=== PATIENT | female | born 2000 | race Caucasian/White ===

== ENCOUNTER → 2019-10-16 15:16 | Outpatient (BNVA) | payer MEDICAID, SELFPAY | PROVIDERS: Family Provider Family Medicine; PCP Family Medicine; Visit Provider Nurse Practitioner Family | DX: N39.0 Urinary tract infection, site not specified (principal) | CPT/HCPCS: 80053; 81000 ==

== ENCOUNTER → 2019-10-27 15:15 | Outpatient (BNVA) | payer MEDICAID, SELFPAY | PROVIDERS: Family Provider Family Medicine; PCP Family Medicine; Visit Provider Family Medicine | DX: Z72.51 High risk heterosexual behavior (principal); N39.0 Urinary tract infection, site not specified; R30.0 Dysuria; Z20.2 Contact with and (suspected) exposure to infections with a predominantly sexual mode of transmission | CPT/HCPCS: 80053; 81000; 81025; 87491; 87591; 87661 ==

== ENCOUNTER 2019-11-27 09:39 | Outpatient (CLI) | payer MEDICAID, SELFPAY ==
--- NOTE | 2019-11-27 09:45 | US_ITS ---
WS: [id number] TRANSABDOMINAL PELVIC AND TRANSVAGINAL PELVIC ULTRASOUND HISTORY: Absence of menses and pelvic pain. COMPARISON: 01/12/2018 Uterus: 6.2 cm x 4.0 cm x 2.6 cm. Normal size anteverted uterus. No fibroid or mass. Endometrium: 0.8 cm. Normal homogeneity within the endometrium. Right ovary: 3.7 cm x 3.6 cm x 1.7 cm. RIGHT ovary is normal size with small follicles. Normal vascul arity. Left ovary: 2.2 cm x 2.1 cm x 1.3 cm. LEFT ovary is normal size. Adjacent to the LEFT ovary is comple x echogenic material which may be hemorrhage. There is complex free fluid in the LEFT adnexa surround ing the ovary and extending into the cul-de-sac. Small amount of complex free fluid in the pelvis is more than physiologic. Notified Panda Fleming MD at 11/27/2019 10:56 AM. US/US pelvic with transvaginal IMPRESSION: 1. Small amount of complex free fluid in the pelvis and to the LEFT adnexa is more than physiologic. 2. Increased echogenic material in the LEFT adnexa adjacent to the ovary may b e clotted blood from a prior hemorrhage. 3. No intrauterine gestation. Recommend evaluation for possible positive pregn franchesca test. Ectopic should be considered as a possible etiology. Other angel hemorrhagic LEFT ovarian cyst may be the etiology for the hemorrhagic mate rial.
== END 2019-11-27 09:40 | disposition home or self-care (01) ==
LOC: RAD 09:41
PROVIDERS: Family Provider Family Medicine; PCP Family Medicine; Visit Provider Family Medicine
DX: N91.2 Amenorrhea, unspecified (principal); R10.2 Pelvic and perineal pain; N83.202 Unspecified ovarian cyst, left side
CPT/HCPCS: 76830; 76856

== ENCOUNTER 2020-04-11 13:22 | Inpatient (IN) | payer MEDICAID, SELFPAY ==
[2020-04-11] VITALS (19 sets, daily range): BP systolic 0–139; BP diastolic 0–78; PULSE 77–97; RESP 15–18; TEMP 36.6–36.8; BMI 25.4
[2020-04-11 09:28] LABS: Basophils % 0.3 %; Eosinophils # 0.1 10^3/uL (0.0-0.8); Eosinophils % 0.5 %; Hematocrit 39.2 % (37.0-47.0); Lymphocytes # 1.8 10^3/uL (0.8-4.8); Lymphocytes % 11.8 %; Mean Corpuscular HGB Conc 33.2 g/dL (30.0-36.0); Mean Corpuscular Hemoglobin 33.3 pg (28.0-34.0); Mean Corpuscular Volume 100.5 fL (81-99); Mean Platelet Volume 10.7 fL (7.4-10.4); Monocytes # 1.2 10^3/uL (0.2-0.9); Monocytes % 7.7 %; Neutrophils # 12.23 10^3/uL (1.8-7.7); Neutrophils % 79.2 %; Nucleated Red Blood Cells % 0 %; Platelet Count 266 10^3/cmm (130-400); Red Cell Distribution Width 13.9 % (12.1-15.1); White Blood Count 15.4 10^3/uL (4.0-10.0)
[2020-04-11] MEDS: HYDROcodone-acetaminophen 5-325 mg Tablet PO ×2 (09:35→17:19)
[2020-04-11 09:40] LABS: Bilirubin Urine Neg (Negative); Blood Urine 2+ (Negative); Glucose Urine UA Norm (Normal); Ketones Urine Negative (Negative); Leukocyte Esterase Urine Negative (Negative); Nitrate Urine Negative (Negative); Protein Urine Neg (Negative); Urine Appearance SL Hazy (CLEAR); Urine Color Yellow (Yellow); Urobilinogen Urine Norm (Negative); pH Urine 7 (5-7)
[2020-04-11 09:42] LABS: Bacteria Urine TRACE /hpf; Squamous Epithelial Cell Urine 0-4 /hpf (0-5); WBC Urine 0-4 /hpf (0-5)
[2020-04-11 09:43] LABS: Add Urine Culture? No; Amorphous Sediment Urine TRACE /hpf; Mucus Urine 1+ /hpf
[2020-04-11] MEDS: sodium chloride 0.9% 1,000 ML 999 ML IV (10:41)
--- NOTE | 2020-04-11 10:47 | US_ITS ---
WS: [id number] ULTRASOUND OB FOCUSED HISTORY: abdominal pain, evaluate placenta. COMPARISON: 03/21/2020 Single intrauterine gestation identified. Cervix is closed at 3.0 cm. Fetus in cephalic presentation. heart rate at 147 BPM. Placenta is anterior grade 1. No abruption or previa. Normal amniotic fluid. US/US OB limited [id number] IMPRESSION: 1. Normal anterior placenta. No abruption or previa. 2. Normal cardiac activity.
--- NOTE | 2020-04-11 10:47 | US_ITS ---
WS: [id number] RENAL ULTRASOUND HISTORY: back/abdominal pain COMPARISON: None available. TECHNIQUE: 2-D and color Doppler imaging of the kidney submitted. Right kidney: 12.6 cm x 4.7 cm x 5.2 cm. Mild to moderate dilatation of the RIGHT renal pelvis. Mild dilatation of the calyces. No mass or per irenal fluid. Left kidney: 11.4 cm x 4.3 cm x 5.0 cm. Very minimal splitting of the LEFT renal pelvis. Aorta: Normal. Urinary Bladder: Normal distention. US/US renal BI* [id number] IMPRESSION: 1. Mild to moderate RIGHT and minimal LEFT hydronephrosis. Probably physiologi c and related to the gravid uterus. 2. Normally distended urinary bladder.
[2020-04-11] MEDS: morphine 4 mg/mL SDV 1 mL IVP ×2 (11:06→19:07)
--- NOTE | 2020-04-11 14:37 | PC.NURSE ---
Pt ambulated to room 208, tolerated well
[2020-04-11] MEDS: NIFEdipine 10 mg Capsule 20 MG PO (17:19)
[2020-04-11] MEDS: sodium chlor 0.45% +KCl 20 mEq 20 MEQ/1,000 ML BAG 150 MEQ IV (19:08)
--- NOTE | 2020-04-11 20:28 | PC.NURSE ---
Rounding Patient resting with eyes closed. RR even, non labored. AR RN
[2020-04-11] MEDS: ondansetron 2 mg/ML SDV 2 mL 4 MG IVP (22:11)
[2020-04-11] MEDS: NIFEdipine ER (24 hr) 30 mg Tablet 60 MG PO (23:08)
[2020-04-12] VITALS (9 sets, daily range): BP systolic 97–140; BP diastolic 50–73; PULSE 80–102; RESP 16–20; TEMP 36.8
[2020-04-12] MEDS: HYDROcodone-acetaminophen 5-325 mg Tablet PO ×4 (00:56→22:36)
[2020-04-12] MEDS: sodium chlor 0.45% +KCl 20 mEq 20 MEQ/1,000 ML BAG 150 MEQ IV ×2 (01:46→08:43)
[2020-04-12] MEDS: morphine 4 mg/mL SDV 1 mL IVP ×3 (06:00→21:23)
--- NOTE | 2020-04-12 06:53 | P.HP_ITS ---
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 On the day of admission, she began having generalized abdominal pain. She also had some vomiting associated with it. She did not have any vaginal bleeding. She continued to feel the baby move. She was brought via ambulance to the hospital. She is evaluated. Initially she was found to have contractions and was treated accordingly with Procardia. Her contractions resolved. She continued to complain of some pain. She is also given betamethasone, and her pain was treated with both morphine and hydrocodone. She continued to have some pain during the night. Present Details : 1 Para: 0 Review of Systems General: Reports: 10 or more systems reviewed and unremarkable except in HPI and below Const: Denies: fever(s) Card: Denies: chest pain or irregular heart rhythm Resp: Denies: dyspnea GI: Reports: abdominal pain, nausea and vomiting; Denies: diarrhea or constipation : Reports: flank pain; Denies: difficulty voiding, dysuria, urinary frequency or urinary urgency Skin/Breast: Denies: rash Medications/Allergies Home Medications Medication Instructions Recorded Confirmed Last Taken Type citalopram 20 mg tablet 20 mg PO DAILY 10/16/19 04/20/20 Unknown History clotrimazole 1 % topical cream 1 applic TOPICAL BID 14 Days #28 gm 10/21/19 04/20/20 Unknown Rx ondansetron 4 mg disintegrating 4 mg PO Q8H PRN #14 tab 10/28/19 04/20/20 Unknown Rx tablet hydrocodone-acetaminophen 1 - 2 tab PO Q6H PRN #30 tab 04/14/20 04/20/20 Unknown Rx phenazopyridine 200 mg PO TID PRN #9 tab 04/14/20 04/20/20 Unknown Rx Allergies Allergy/AdvReac Type Severity Reaction Status Date / Time Sulfa (Sulfonamide Allergy Unknown UNKNOWN Verified 10/27/19 14:46 Antibiotics) sulfamethoxazole Allergy ALGY-Hives Verified 04/11/20 09:42 [From Bactrim] trimethoprim [From Bactrim] Allergy ALGY-Hives Verified 04/11/20 09:42 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 [facility]: Medical History Recurrent cystitis Surgical History History of tonsillectomy and adenoidectomy Family History Other Diabetes Hypertension Social History Smoking and tobacco status: never smoked Alcohol intake: never Adopted: No Caregiver/support person: No Marital status: Single Personal Safety: Do you feel safe at home: Yes Victim of physical abuse: No Victim of emotional abuse: No Victim of sexual abuse: No Would you like help information on resources?: No Vitals/I&O/Wt Last Vital Signs Temp 98.3 F 04/11/20 23:24 Pulse 84 04/12/20 06:16 Resp 16 04/12/20 06:00 BP 100/59 04/12/20 06:16 04/11/20 04/11/20 04/12/20 14:59 22:59 06:59 Intake Total 1000 / 1000 1994 Balance 1000 / 1000 1994 Weight last 48 hrs Weight 135 lb Physical Exam Const: COMMON NORMALS: patient oriented x3 and alert HENMT: COMMON NORMALS: moist oral mucous membranes HEAD & SCALP: normal to inspection Chest: COMMONS NORMALS: normal inspection of the chest Resp: COMMON NORMALS: clear to auscultation bilaterally AUSCULTATION: clear to auscultation bilaterally Cardio: COMMON NORMALS: regular rate and regular rhythm RATE: regular rate RHYTHM: regular rhythm GI: INSPECTION: Yes other (Gravid. No point tenderness. No rebound tenderness. Mild generalized ten) : SPECULUM EXAM - CERVIX: Yes Cervical os closed (The cervix is thick and high and hard) Extremity: COMMON NORMALS: normal to inspection GENERAL: Yes edema (Trace) Neuro: COMMON NORMALS: patient oriented x3, moves all extremities and no sensory deficits noted SENSORIUM/ORIENTATION: Yes alert Psych: COMMON NORMALS: mental status grossly normal Skin: COMMON NORMALS: no rashes or lesions noted GENERAL SKIN EXAM: no rashes or lesions noted Data : 04/12/20 09:21 04/12/20 09:21 A&P Assessment and plan (1) 23 weeks gestation of : Status: Resolved (2) uterine contractions in second trimester, antepartum: Status: Resolved (3) Abdominal pain affecting : Status: Acute (4) Flank pain: Status: Acute (5) Hydronephrosis: Status: Acute Attestations Medical Necessity Statement*: The patient gestational age of 23 weeks together with her severe pain and contractions. Due to hydronephrosis and the resulting pain, Dr. Caldera evaluated the patient and determined that she needed a stent placed. Her pain is improved dramatically Coding Level of Care Code Acute Weight Control Engineer for g Fwd Exam Comprehensive Diagnoses 23 weeks gestation of Z3A.23 uterine contractions in second trimester, antepartum O47.02 Abdominal pain affecting O26.899; R10.9 Flank pain R10.9 Hydronephrosis N13.30
--- NOTE | 2020-04-12 09:02 | XR_ITS ---
WS: [id number] INTRAVENOUS PYELOGRAPHY WITHOUT TOMOGRAPHY, LIMITED HISTORY: Kidney stones COMPARISON: Renal ultrasound 04/11/2020. Procedure, risks and complications have been explained to the patient. Consent is obtained. KUB is first obtained. Additional imaging is then performed post intravenous injection of contrast ta ilored for the examination. Only 3 images in total are submitted due to gravid uterus. Contrast: Omnipaque 300; 100 mL IV. Utility Operator Yarn radiograph: Moderate fecal retention. Fetus is noted in cephalic position. No stones are identi fied. After the initial injection of contrast the 5 minute film is obtained which demonstrates no excretion from the RIGHT kidney. Very minimal nephrogram of the RIGHT kidney. There is mild dilatation of the LEFT renal pelvis and the LEFT ureter to the pelvic brim. 20 minute film performed demonstrates retained contrast in the RIGHT renal kidney with no excretion o r filling of the ureter. There is continued dilatation of the LEFT renal pelvis and LEFT ureter but t here is contrast noted in the urinary bladder. The LEFT ureter is normal caliber distal to the pelvic brim. XR/XR IVP w KUB [id number] IMPRESSION: 1. Significantly delayed excretion at 20 minutes from the RIGHT kidney with no filling of the renal pelvis or ureter. 2. Mild dilatation of the LEFT renal pelvis and LEFT ureter to the pelvic brim . Normal caliber ureter distal to the LEFT pelvic brim with excretion into the urinary bladder.
[2020-04-12 09:39] LABS: Basophils % 0.3 %; Eosinophils # 0.1 10^3/uL (0.0-0.8); Eosinophils % 0.7 %; Hematocrit 32.6 % (37.0-47.0); Hemoglobin 10.8 g/dL (11.5-15.3); Lymphocytes # 1.3 10^3/uL (0.8-4.8); Lymphocytes % 13.6 %; Mean Corpuscular HGB Conc 33.1 g/dL (30.0-36.0); Mean Corpuscular Volume 102.5 fL (81-99); Mean Platelet Volume 10.8 fL (7.4-10.4); Monocytes % 10.4 %; Neutrophils # 7.25 10^3/uL (1.8-7.7); Neutrophils % 74.7 %; Nucleated Red Blood Cells % 0 %; Platelet Count 221 10^3/cmm (130-400); Red Blood Count 3.18 10^6/uL (4.1-5.3); White Blood Count 9.7 10^3/uL (4.0-10.0)
[2020-04-12 09:54] LABS: Add Urine Culture? Yes; Bacteria Urine 2+ /hpf; Bilirubin Urine Neg (Negative); Blood Urine Neg (Negative); Glucose Urine UA Norm (Normal); Ketones Urine Negative (Negative); Leukocyte Esterase Urine 2+ (Negative); Mucus Urine TRACE /hpf; Nitrate Urine Negative (Negative); Protein Urine Neg (Negative); RBC Urine 0-4 /hpf (0-2); Specific Gravity, Urine 1.005 (1.005-1.030); Urine Appearance Cloudy (CLEAR); Urine Color Straw (Yellow); Urobilinogen Urine Norm (Negative); WBC Urine 15-25 /hpf (0-5)
[2020-04-12 09:55] LABS: Alanine Aminotransferase 11 U/L (0-33); Alkaline Phosphatase 65 IU/L (35-105); Anion Gap 12.4 (5-19); Aspartate Amino Transferase 17 U/L (0-32); Blood Urea Nitrogen 5 mg/dL (6-20); Calcium 7.7 mg/dL (8.5-10.5); Carbon Dioxide 21 mmol/L (22-29); Chloride 102 mmol/L (98-107); Globulin 2.2 g/dL (1.3-4.6); Glomerular Filtration Rate 105.6 mL/min (90-130); Glucose 79 mg/dL (65-115); Osmolality Calculated 266 mOsm/kg (285-295); Potassium 5.4 mmol/L (3.5-5.1); Sodium 130 mmol/L (136-145); Total Bilirubin 0.3 mg/dL (0.15-1.2); Total Protein 5.2 g/dL (6.6-8.7)
[2020-04-12] MEDS: sodium chloride 0.9% 1,000 ML 999 ML IV (10:10)
[2020-04-12] MEDS: iohexol 300 mg/mL 50 mL Btl IV (11:25)
[2020-04-12] MEDS: sodium chloride 0.9% 1,000 ML 150 ML IV ×2 (14:03→22:54)
--- NOTE | 2020-04-12 15:46 | XRR_ITS ---
PROCEDURE INFORMATION: Exam: XR Abdomen, 1 View Exam date and time: 04/12/2020 4:32 PM Age: 19 years old Clinical indication: Abdominal pain; Generalized; Additional info: Follow up TECHNIQUE: Imaging protocol: XR of the abdomen. Views: Frontal supine view of the abdomen. 1 View. COMPARISON: CR XR IVP w KUB [id number] 04/12/2020 10:54 AM FINDINGS: Gastrointestinal tract: Gaseous distention and moderate amount of stool in the proximal to mid colon. No intestinal obstruction. An electronic device projects over the right lower abdomen, which is likely external. Organs: A small amount of residual contrast is again seen in the urinary bladder. Bones/joints: Unremarkable. XR/XR KUB portable [id number] IMPRESSION: No significant change.
--- NOTE | 2020-04-12 17:13 | XRR_ITS ---
PROCEDURE INFORMATION: Exam: XR Abdomen, 1 View Exam date and time: 04/12/2020 5:46 PM Age: 19 years old Clinical indication: Abdominal pain; Generalized; Additional info: Delayed image for limited ivp. TECHNIQUE: Imaging protocol: XR of the abdomen. Views: Frontal supine view of the abdomen. 1 View. COMPARISON: CR XR KUB portable [id number] 04/12/2020 4:25 PM FINDINGS: The urinary bladder is slightly more distended with contrast. The right kidney is slightly more hyperdense compared to the prior study. Contrast material in the right renal collecting system demonstrates mild hydronephrosis. Contrast is observed in the mildly dilated right ureter XR/XR KUB [id number] IMPRESSION: Delayed excretion of contrast from the right kidney. Mild right hydronephrosis and hydroureter are noted.
--- NOTE | 2020-04-12 20:00 | PM.CONSULT ---
Providers/Reason For Consult Consulting Physican/Specialty*: Urology/Mendez Reason for Consult*: Right hydronephrosis with abdominal pain Attending Physician: Donald Sanchez MD Primary Care Provider: Augustina Lepe MD History of Present Illness History of Present Illness Keith Ellison is a 19 year old female who I seen several years ago for recurrent urinary tract infections with a history dating back to infancy and initially presenting with more acute cystitis type episodes but over time developing symptoms more suspicious for chronic cystitis. She is placed on a prolonged course of Macrobid in January 2018 and had a follow-up appointment following month but failed to keep her appointment. Family reported that she had been evaluated by urologist in [facility] as a child. The details of that work-up were unavailable at that time. This hospitalization was initiated because of severe abdominal pain at 23 weeks intrauterine . Ultrasound showed no evidence of left hydronephrosis but did show RIGHT hydronephrosis. The pain was severe and due to patient's somewhat diminished cognitive function she had not been handling it well. Could not really relate right or left side for the source of pain. There was no evidence of active infection. Ultimately because of the poor control, right hydronephrosis, and characteristics of abrupt onset suspicious for stone it was recommended that she undergo an abbreviated IVP. No obvious stone was seen on the muffler installer film. There was significant delay of excretion and at the approximately 5 to 6-hour yue there was a column of dye on the right side down to the area near the right UVJ below the point where physiologic obstruction of would be expected. No clear stone could be seen. I was consulted for further evaluation and treatment. I have reviewed the films in detail. It is my impression that this likely represents a small stone in the right distal ureter. Recommendations: 1. IV fluids, pain medications as needed, strain all voids. 2. Reassess tomorrow with option for cystoscopy stent placement, possible URETEROSCOPY with stone extraction (to allow shorter stent duration) assuming the reasonableness of this based on status. 3. I tried to contact the patient's mother Dotty Epstein but could not the phone to answer. Review of Systems Const: Denies: fever(s) or chills Eyes: Denies: change in vision or blurry vision Card: Denies: chest pain or palpitations Resp: Denies: dyspnea or productive cough GI: Reports: abdominal pain, nausea and vomiting; Denies: change in bowel habits : Reports: flank pain and other (Pelvic pressure. Some urgency.); Denies: hematuria Musc: Denies: joint redness or joint warmth Skin/Breast: Denies: rash Psych: Reports: other (Cognitive dysfunction) Dale/Lymph: Denies: easy bruising or easy bleeding All/Imm: Denies: urticaria Meds/Allergies Home Medications and Allergies Home Medications Medication Instructions Recorded Confirmed Last Taken Type citalopram 20 mg tablet 20 mg PO DAILY 10/16/19 10/27/19 Unknown History clotrimazole 1 % topical cream 1 applic TOPICAL BID 14 Days #28 gm 10/21/19 10/27/19 Unknown Rx ondansetron 4 mg disintegrating 4 mg PO Q8H PRN #14 tab 10/28/19 10/28/19 Unknown Rx tablet Allergies Allergy/AdvReac Type Severity Reaction Status Date / Time Sulfa (Sulfonamide Allergy Unknown UNKNOWN Verified 10/27/19 14:46 Antibiotics) sulfamethoxazole Allergy ALGY-Hives Verified 04/11/20 09:42 [From Bactrim] trimethoprim [From Bactrim] Allergy ALGY-Hives Verified 04/11/20 09:42 Current Medications Current Medications Generic Name Dose Route Start Last Admin Trade Name Freq PRN Reason Stop Dose Admin Hydrocodone Bitart/Acetaminophen 1 - 2 tab 04/11/20 13:23 04/12/20 15:18 Hydrocodone-Acetaminophen 5-325 Mg Tablet PO 2 tab Q6H PRN Administration MODERATE PAIN Sodium Chloride 1,000 mls @ 150 mls/hr 04/12/20 13:30 04/12/20 14:03 Sodium Chloride 0.9% IV 150 mls/hr .Q6H40M THU Administration Morphine Sulfate 4 mg 04/11/20 13:25 04/12/20 12:04 Morphine 4 Mg/Ml Sdv 1 Ml IVP 4 mg Q4H PRN Administration BREAKTHROUGH PAIN Ondansetron HCl 4 mg 04/11/20 11:16 04/11/20 22:11 Ondansetron 2 Mg/Ml Sdv 2 Ml IVP 4 mg Q4H PRN Administration NAUSEA AND VOMITING PFSH Acute PFSH: Medical History (Updated 04/12/20 @ 20:08 by Roc Mendez MD) Recurrent cystitis Surgical History (Updated 04/12/20 @ 20:09 by Roc Mendez MD) History of tonsillectomy and adenoidectomy Family History Other Diabetes Hypertension Social History Smoking and tobacco status: never smoked Alcohol intake: never Adopted: No Caregiver/support person: No Marital status: Single Female Reproductive History: : 1 Vitals/I&O/Wt Last Vital Signs Temp 98.2 F 04/12/20 10:00 Pulse 102 H 04/12/20 15:23 Resp 20 H 04/12/20 12:04 BP 140/73 04/12/20 15:23 04/12/20 04/12/20 04/12/20 06:59 14:59 22:59 Intake Total 1994 2232.5 / 2232.5 Output Total 1800 / 1800 600 / 2400 Balance 1994 432.5 / 432.5 -600 / -167.5 Weight last 48 hrs Weight 135 lb Physical Exam Const: COMMON NORMALS: no acute distress, alert and well nourished GENERAL APPEARANCE: well kempt and well developed ORIENTATION/CONSCIOUSNESS: not confused HENMT: COMMON NORMALS: normocephalic and atraumatic HEAD & SCALP: normocephalic and atraumatic Neck/C-Spine: COMMON NORMALS: full ROM Resp: COMMON NORMALS: normal respiratory effort EFFORT & INSPECTION: No labored and No Actively coughing Cardio: COMMON NORMALS: regular rate RATE: regular rate Neuro: SENSORIUM/ORIENTATION: Yes alert Psych: COMMON NORMALS: mental status grossly normal APPEARANCE: Yes grossly normal and Yes well kempt ATTITUDE: Yes calm and Yes engaged Skin: COMMON NORMALS: no rashes or lesions noted and no jaundice GENERAL SKIN EXAM: no rashes or lesions noted A&P Assessment and plan (1) Ureteral obstruction, right: Based on IVP results I expect this is probably a right distal ureteral stone. Cannot clearly identified on the muffler installer film. Hopefully it small enough that will pass. Recommend initial continued conservative management with option for surgical intervention either with stent or ureteroscopy for persistent symptoms. Status: Acute (2) Hydronephrosis of right kidney: Pronounced right side without left. Status: Acute (3) Flank pain: Suspicious for renal colic Status: Acute (4) Recurrent cystitis: History of recurrent UTIs but no evidence of that currently. Status: Inactive Consult Attestations Medical Necessity Statement: See attending Time Spent in Patient Care: Greater than 35 minutes (>than 50% of time spent in counselling and/or direct pt care on unit). Coding Level of Care Code Acute Supply Chain Procurement Manager for [facility] Fwd Exam Detailed Diagnoses Ureteral obstruction, right N13.5 Hydronephrosis of right kidney N13.30 Flank pain R10.9 Recurrent cystitis N30.90
--- NOTE | 2020-04-12 20:15 | PC.NURSE ---
Pain assessment. Patient states she is having some pain, this nurse asked patient if she needed pain medication. She stated she does not want any thing at the moment, and will notify this nurse when she needs pain medication. BRITTNEY FABIAN
--- NOTE | 2020-04-12 20:34 | PC.NURSE ---
Patients mother, Lupe, updated on patient status, Dr. Mendez's consult report. No further questions. States she will by tomorrow to see daughter. BRITTNEY FABIAN
[2020-04-12] MEDS: ondansetron 2 mg/ML SDV 2 mL 4 MG IVP (23:37)
[2020-04-13] VITALS (47 sets, daily range): BP systolic 0–123; BP diastolic 0–83; PULSE 78–122; RESP 16–25; TEMP 36.3–37; O2SAT 80–100
--- NOTE | 2020-04-13 | SCC_ITS ---
Procedure Done: 1. Cystoscopy, right ureteroscopy 2. Right retrograde ureteropyelogram 3. Right ureteral stent placement 8.9 seconds of fluoroscopic guidance, for a cumulative dose of 1.06 mGy, was provided to Dr. Mendez by the radiology department. C-arm images of the abdomen were saved for the patient's permanent record. [facility]
[2020-04-13] MEDS: sodium chloride 0.9% 1,000 ML 150 ML IV ×3 (05:56→19:38)
--- NOTE | 2020-04-13 07:16 | SC_ITS ---
WS: [id number] C-ARM RADIOGRAPHS ABDOMEN; 3 IMAGES HISTORY: RIGHT ureteral obstruction. COMPARISON: 04/12/2020. Intraoperative imaging during retrograde evaluation of the RIGHT ureter. Double pigtail RIGHT uretera l stent is placed. SC/C-arm FL for Urology IMPRESSION: Intraoperative imaging during RIGHT ureteral stent placement.
--- NOTE | 2020-04-13 07:27 | PM.PN ---
Subjective Subjective: Interval history: A lot of pain last night. No fever or chills. No stone passage. Offered stenting with possible ureteroscopy/laser if no stone passage today and remaining asymptomatic. She elected to proceed with that. We reviewed the procedure. I tried to contact her mother and will continue to do so for explanation of the rationale. Reviewed with nursing staff. Vitals/I&O/Wt Last Vital Signs Temp 98.3 F 04/13/20 01:15 Pulse 107 H 04/13/20 05:20 Resp 18 04/13/20 01:16 BP 106/71 04/13/20 05:20 04/12/20 04/13/20 04/13/20 22:59 06:59 14:59 Intake Total 1000 / 3232.5 615 / 3847.5 Output Total 1600 / 3400 650 / 4050 Balance -600 / -167.5 -35 / -202.5 Weight last 48 hrs Weight 135 lb Physical Exam Const: COMMON NORMALS: alert and well nourished GENERAL APPEARANCE: well kempt and well developed ORIENTATION/CONSCIOUSNESS: not confused HENMT: COMMON NORMALS: normocephalic and atraumatic HEAD & SCALP: normocephalic and atraumatic Resp: COMMON NORMALS: normal respiratory effort EFFORT & INSPECTION: No labored and No Actively coughing Extremity: COMMON NORMALS: no clubbing, cyanosis or edema Neuro: COMMON NORMALS: no focal motor deficits SENSORIUM/ORIENTATION: Yes alert Psych: APPEARANCE: Yes grossly normal and Yes well kempt ATTITUDE: Yes calm and Yes engaged Skin: COMMON NORMALS: no rashes or lesions noted and no jaundice GENERAL SKIN EXAM: no rashes or lesions noted Data : 04/12/20 09:21 04/12/20 09:21 Attestations Medical Necessity Statement*: Uncontrolled renal colicky pain believed to be secondary to a distal ureteral stone complicated by (23 weeks estimated gestational age). Patient has not responded well to conservative management and is not a candidate for further discharge at this point unless the stone passes or intervention occurs. She elected to proceed with cystoscopy and stent placement and if possible ureteroscopy. That decision will be made intraoperatively based on the patient's clinical status at the time. Coding Level of Care Code Acute Segmental Wall Installer for Anabel Martin
--- NOTE | 2020-04-13 07:46 | PM.OBGYPN ---
MANAGER COSMETIC Subjective Subjective: Interval history: The patient continues to complain of pain, but appears to be doing better overall. She still does not have an appetite. She has not passed the stone overnight. Dr. Mendez has seen the patient, and is considering retrieving the presumed stone. Every shift heart tones are appropriate for her gestational age Labor: Station: -5 Monitor Mode: External Contraction Pattern: Irregular Vitals/I&O/Wt Last Vital Signs Temp 98.3 F 04/13/20 01:15 Pulse 107 H 04/13/20 05:20 Resp 18 04/13/20 01:16 BP 106/71 04/13/20 05:20 04/12/20 04/13/20 04/13/20 22:59 06:59 14:59 Intake Total 1000 / 3232.5 615 / 3847.5 Output Total 1600 / 3400 650 / 4050 Balance -600 / -167.5 -35 / -202.5 Weight last 48 hrs Weight 135 lb Physical Exam Const: GENERAL APPEARANCE: cooperative, comfortable and well developed HENMT: COMMON NORMALS: normocephalic and moist oral mucous membranes HEAD & SCALP: normocephalic Chest: COMMONS NORMALS: normal inspection of the chest Resp: COMMON NORMALS: normal respiratory effort and clear to auscultation bilaterally AUSCULTATION: clear to auscultation bilaterally Cardio: COMMON NORMALS: regular rate, regular rhythm, No gallops present (Cardio), No murmurs present (Cardio) and No rub (Cardio) RATE: regular rate RHYTHM: regular rhythm GI: COMMON NORMALS: Soft to palpation INSPECTION: Yes normal to inspection AUSCULTATION: Yes normoactive bowel sounds PALPATION: Yes Soft to palpation, No Rebound tenderness present and Yes Other GI palpation findings present (Generalized tenderness noted once again.) Extremity: COMMON NORMALS: normal to inspection Neuro: COMMON NORMALS: no focal motor deficits Skin: COMMON NORMALS: no rashes or lesions noted GENERAL SKIN EXAM: no rashes or lesions noted Data : 04/12/20 09:21 04/12/20 09:21 A&P Assessment and plan (1) Ureteral obstruction, right: Dr. Mendez is evaluating the patient is considering intervention this evening. In the meanwhile we will continue to control her pain with hydrocodone, and morphine for breakthrough pain. Status: Acute (2) Hydronephrosis of right kidney: Status: Acute (3) Flank pain: Status: Acute (4) 23 weeks gestation of : Status: Acute Attestations Medical Necessity Statement*: The patient will likely require 1 more night in the hospital assuming were able to manage her pain better. My partner will be covering for you tomorrow. Coding Level of Care Code Acute Manager Policy for Anabel Martin Diagnoses Ureteral obstruction, right N13.5 Hydronephrosis of right kidney N13.30 Flank pain R10.9 23 weeks gestation of Z3A.23
[2020-04-13] MEDS: HYDROcodone-acetaminophen 5-325 mg Tablet PO ×2 (14:11→23:57)
--- NOTE | 2020-04-13 16:45 | PC.NURSE ---
Surgery here to take pt down for procedure.
--- NOTE | 2020-04-13 17:28 | ANES.PREANE2 ---
Pre-Anesthetic Assessment Pre-Anesthetic Assessment: Height/Weight: Height 1.55 m Weight 61.235 kg Temp Pulse Resp BP 98.5 F 78 18 104/54 04/13/20 16:00 04/13/20 16:20 04/13/20 01:16 04/13/20 16:20 Proposed Procedure: Operation Date: 04/13/20 16:20 Proposed Procedures p Cystoscopy right ureteral stent, possible ureteroscopy, laser(Right) - Roc Mendez MD Was Beta Francisca taken within 24 hours: N/A Social: Social History: No alcohol and No tobacco Airway: Submandibular: WNL Cervical ROM: WNL MP: 2 Dentition: Full Pulmonary: Pulmonary: None reported CV/HEM: CV/HEM: None reported : Comments: Hydronephrosis, stones Hepatic: Hepatic: None reported GI: GI: None reported Metabolic: Metabolic: None reported Musc/skel: Musc/skel: None reported Neuropsych: Neuropsych: Depression Anesthetic Plan: ASA status: 2 Anesthesia: General Risk of > 500 ml blood loss (7ml/kg in children): No Other Pertinent Information: Meds/Allergies Current Medications: Current Medications Generic Name Dose Route Start Last Admin Trade Name Freq PRN Reason Stop Dose Admin Hydrocodone Bitart /Acetaminophen 1 - 2 tab 04/11/20 13:23 04/13/20 14:11 Hydrocodone-Acet aminophen 5-325 Mg Tablet PO 2 tab Q6H PRN Administration MODERATE PAIN Sodium Chloride 1,000 mls @ 150 m ls/hr 04/12/20 13:30 04/13/20 13:36 Sodium Chloride 0.9% IV 150 mls/hr .Q6H40M THU Administration Morphine Sulfate 4 mg 04/11/20 13:25 04/12/20 21:23 Morphine 4 Mg/Ml Sdv 1 Ml IVP 4 mg Q4H PRN Administration BREAKTHROUGH PAIN Ondansetron HCl 4 mg 04/11/20 11:16 04/12/20 23:37 Ondansetron 2 Mg /Ml Sdv 2 Ml IVP 4 mg Q4H PRN Administration NAUSEA AND VOMITI NG PFSH Anesthesia PFSH: Medical History (Updated 04/12/20 @ 20:08 by Roc Mendez MD) Recurrent cystitis Surgical History (Updated 04/12/20 @ 20:09 by Roc Mendez MD) History of tonsillectomy and adenoidectomy Family History Other Diabetes Hypertension Social History Smoking and tobacco status: never smoked Alcohol intake: never Adopted: No Caregiver/support person: No Marital status: Single Female Reproductive History: : 1 Data Anesthesia CBC & Chem 7: 04/12/20 09:21 04/12/20 09:21 Other Labs: Laboratory Results - last 48 hr 04/12/20 04/12/20 04/12/20 09:21 09:21 09:25 WBC 9.7 RBC 3.18 L Hgb 10.8 L Hct 32.6 L MCV 102.5 H MCH 34.0 MCHC 33.1 RDW 14.0 Plt Count 221 MPV 10.8 H Neut % (Auto) 74.7 Lymph % (Auto) 13.6 Steele % (Auto) 10.4 Eos % (Auto) 0.7 Baso % (Auto) 0.3 Neut # (Auto) 7.25 Lymph # (Auto) 1.3 Steele # (Auto) 1.0 H Eos # (Auto) 0.1 Baso # (Auto) 0.0 Nucleated RBC % (auto) 0 Nucleated RBCs # 0.0 Sodium 130 L Potassium 5.4 H Chloride 102 Carbon Dioxide 21 L Anion Gap 12.4 BUN 5 L Creatinine 0.7 GFR Calculation 105.6 Glucose 79 Calculated Osmolality 266 L Calcium 7.7 L Total Bilirubin 0.3 AST 17 ALT 11 Alkaline Phosphatase 65 Total Protein 5.2 L Albumin 3.0 L Globulin 2.2 Urine Color Straw Urine Appearance Cloudy Urine pH 5.0 Ur Specific [place] 1.005 Urine Protein Neg Urine Glucose (UA) Norm Urine Ketones Negative Urine Blood Neg Urine Nitrate Negative Urine Bilirubin Neg Urine Urobilinogen Norm Ur Leukocyte Esterase 2+ H Urine RBC 0-4 H Urine WBC 15-25 H Ur Squamous Epith Cells 10-15 H Amorphous Sediment Not Reportable Urine Bacteria 2+ H Urine Mucus Trace Micro: Microbiology 04/12/20 09:25 Urine Culture - Preliminary Urine,Clean Catch Cardiac Studies: No Data to Display
--- NOTE | 2020-04-13 17:32 | SUR.PREOP ---
PT AWAKE ALERT DR MAXWELL AND DR TAYLOR IN TO SEE PT, PT C/O OF PAIN AND URGENCY, VSS IV PATENT OCEAN RESCUE LIEUTENANT AT BEDSIDE AWARE PT IS HAVING PAIN.
--- NOTE | 2020-04-13 18:22 | SUR.OPER ---
heart tones in 140s before case
[2020-04-13] MEDS: iohexol 300 mg/mL 50 mL Btl VAGINAL (18:36)
--- NOTE | 2020-04-13 18:52 | SUR.OPER ---
heart tones 126 at end of case
--- NOTE | 2020-04-13 18:53 | P.OP_ITS ---
Operative Report Date of procedure: April 13, 2020 Pre-op Diagnosis: Right ureteral obstruction at 23 weeks estimated gestational age intrauteri Post-op diagnosis: same Procedure Done: 1. Cystoscopy, right ureteroscopy 2. Right retrograde ureteropyelogram 3. Right ureteral stent placement Specimens removed/disposition: Atypical inflammatory type plug located in the bladder. Based on right intramural tunnel inflammatory changes it appears that this had been extruded from the right Ureter. Pathology: Plug Surgeon: Andrea Anesthesia: MAC Estimated blood loss: Minimal Urine output: Not measured Complications: None Findings: 1. Upon entry into the bladder there was a cylindrical shaped object in the bladder that looked like a mucous type plug or possibly a soft stone. It was roughly the size of the ureteral lumen. It was drained from the bladder and found to be soft and not calcified. 2. The right ureteral orifice and intramural tunnel was significantly inflamed consistent with recent passage. 3. Right retrograde single shot showed a tight area in the distal ureter with dilation proximal to that and possible filling defect. 4. Ureteroscopy required dilation of the narrowed area to pass the scope into the dilated distal ureter. 5. No additional stones or material identified. 6. It appears that the narrowed area in the distal ureter was the site of obstruction and that the plugged was probably involved in that process acutely but ultimately worked its way through the narrow area into the bladder shortly before the procedure. 7. Due to dilation of the narrowed area with some typical balloon trauma a 6 [place] by 24 cm double-pigtail stent was left indwelling at the completion of the procedure with anticipation of removing it next week in the clinic. Condition: stable Disposition: PACU Brief History: Ms. Ellison is a 19-year-old white female 23 weeks estimated gestational age intrauterine who presented with acute right renal colicky type symptoms along with diffuse abdominal pain. No clear evidence of infection. Ultrasound showed significant right-sided hydronephrosis. She was aggressively managed with pain medication with hopes of avoiding further intervention but the symptoms could not be readily controlled and she continued to writhe in pain. Ultimately was decided for diagnostic purposes to perform a limited IVP which showed right distal ureteral obstruction but could not clearly identify a stone. She was continued on conservative management until this evening at which point because of her persistent pain she elected to proceed with stent placement possible ureteroscopy pending status intraoperatively. Procedure: After urgent evaluation examination and obtaining of informed consent she was taken to the operating suite on 04/13/2020 where MAC was administered without difficulty. She was prepped and draped in usual sterile fashion in dorsolithotomy position. Appropriate timeout was performed, SCDs confirmed to be functioning, preoperative antibiotics administered, beta-peter protocol confirmed. A C-arm was utilized on low-dose fluoroscopy with coning down of the windows to reduce exposure to the baby. 21 [place] cystoscope with 30 degree lens was introduced into the urethral meatus and advanced into the bladder under videoscopy. Immediately within the bladder and unusual cylindrical shape plug was identified next to the right ureteral orifice which was significantly edematous and inflamed consistent with either intramural or recently passed material. The plug was flushed free from the bladder and was found to be soft. It had a formed intact membranous type coverage like an old clot potentially. A right retrograde ureteropyelogram was performed with a single shot. Cone-tip catheter was intubated to the right ureteral orifice contrast was injected in a single shot image showed normal distal ureter, a narrowed area several centimeters above the ureteral orifice and a dilated ureter proximal to that point. Possible filling defect in the dilated area. A flexible tip guidewire was in the easily passed up the right ureter and secured to the drapes as a safety wire. 7 [place] offset semirigid ureteroscope was then advanced up the right ureter and for a couple centimeters there was some mild inflammatory changes in the ureter but then a narrowed area consistent with what was seen on the retrograde was identified. The scope could not be easily passed and a second guidewire was then passed through the scope but this also did not facilitate easy passage through this narrowed area and for that reason it was decided to dilate the narrowed area to confirm no residual stone. The patient was doing well and it was felt that this could be accomplished rapidly. A 15 [place] 4 cm balloon was passed over the guidewire into the distal ureter and inflated to 6 ruth. A single shot low-dose fluoroscopy revealed no waist. The balloon was deflated and the wire secured to the drapes as a safety wire. The ureteroscope was then repassed and this time easily passed the narrowed area which had been dilated with mild trauma. The scope was passed to the level of the vessels and no stones or other material was identified. Reinspection of the dilation area failed to reveal any stones or intramural proc ess just some mucosal superficial tearing from the dilation of the narrowed area. The scope was removed. The cystoscope was then backloaded over the guidewire and a 6 [place] by 24 cm double-pigtail stent was advanced over the guidewire. The wire was backed off about 6 to 7 inches and a single shot of the kidney with coned-down imaging showed the curl formed in the appropriate area. The distal aspect was seen to curl in the bladder and demonstrated drainage. Bladder was drained and the procedure was completed. She tolerated the procedure well without complications and was awakened in the operating room and returned to recovery room in stable condition. PLANS: 1. Return to SYSTEMS INTEGRATOR. I will speak with the OB on-call 2. If she is doing well tomorrow she can go home. 3. The stent needs to remain in place until next week at which point I can remove it in my office. There may be some merit in extending the indwelling stent time if she is tolerating it well enough. More than likely the she want the stent out just as soon as possible. I think next week will allow enough healing of the dilated area to facilitate normal drainage.
--- NOTE | 2020-04-13 19:11 | PC.NURSE ---
Report received from PACU nurse at this time.
--- NOTE | 2020-04-13 19:14 | ANE.PACU2 ---
Inpatient post-anesthesia follow up: Airway intact: Yes Vital signs: Temperature 97.4 F Pulse Rate 102 Respiratory Rate 18 Blood Pressure 109/70 Pulse Oximetry 93 Oxygen Delivery Me thod Room Air Oxygen Flow Rate 8 Fraction of Inspir ed Oxygen Hydration adequate: Yes Nausea and vomiting: No Pain level: 3 Additional Comments: Sedated
--- NOTE | 2020-04-13 19:16 | SUR.PHASEI ---
1715 PT AWAKES TO VOICE, C/O OF PAIN/URGENCY PT REMINDED OF STENT TO RT URETER WHICH WILL CAUSE SOME URGENCY, PT STATES IF FEELS BETTER BUT STILL HURTS, PT SLEEPS IF NOT DITURBED WITH GOOD RESP ON RA, VSS HEARTONES BY AUTOMATIC FOLDER SEAMER. WARM BLANKETS TO PT X 4 FOR COMFORT PT BACK TO SLEEP REPORT CALLED TO FLOOR AND PT TO FLOOR PER CART.
--- NOTE | 2020-04-13 19:20 | PC.NURSE ---
Patient arrived in OB unit at this time, patient stable. transferred to bed with stand by assistance.
[2020-04-13] MEDS: morphine 4 mg/mL SDV 1 mL IVP (19:42)
--- NOTE | 2020-04-13 20:00 | PC.NURSE ---
Heart tones Dopplered in the 150's.
[2020-04-13] MEDS: ondansetron 2 mg/ML SDV 2 mL 4 MG IVP (21:07)
[2020-04-14] VITALS (7 sets, daily range): BP systolic 106–117; BP diastolic 57–72; PULSE 94–107; RESP 16–18; TEMP 36.4–36.9
[2020-04-14] MEDS: sodium chloride 0.9% 1,000 ML 150 ML IV (02:32)
[2020-04-14] MEDS: phenazopyridine 100 mg Tablet 200 MG PO (05:18)
[2020-04-14] MEDS: HYDROcodone-acetaminophen 5-325 mg Tablet PO (09:13)
--- NOTE | 2020-04-14 09:18 | PM.OBGYDC ---
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 With hydration the contractions resolved but she continued to have hydronephrosis and left flank pain. Dr. Mendez was consulted and performed a cystoscopy yesterday and removed a possible soft stone and dilated the ureter. Nurse reports she is urinating better. She does have some dysuria and did receive some Pyridium earlier this morning for that which seemed to help that. She continues to complain of some flank pain but nurses report she is overall doing well. She is felt to be stable for discharge home. Physical Exam Const: COMMON NORMALS: no acute distress GENERAL APPEARANCE: cooperative and well kempt Resp: COMMON NORMALS: normal respiratory effort, No retractions, No use of accessory muscles and clear to auscultation bilaterally AUSCULTATION: clear to auscultation bilaterally Cardio: COMMON NORMALS: regular rate, regular rhythm and No murmurs present (Cardio) RATE: regular rate RHYTHM: regular rhythm GI: COMMON NORMALS: Soft to palpation INSPECTION: Yes normal to inspection (She is .) PALPATION: Yes Soft to palpation and Yes Tenderness to palpation present (GI) (Mild generalized tenderness.) Back/Pelvis: LUMBAR SPINE/LOWER BACK: Yes normal to inspection and Yes lumbar spinal tenderness (Mild to moderate diffuse tenderness but no pinpoint tenderness.) Extremity: COMMON NORMALS: normal to inspection and no pedal edema Neuro: COMMON NORMALS: CN's II-XII intact bilaterally, moves all extremities, no focal motor deficits and no sensory deficits noted Psych: COMMON NORMALS: cooperative APPEARANCE: Yes well kempt Discharge Data Data Completed and Pending: Completed Studies During Hospitalization Category Date Time Status XR IVP w KUB 7440 0 Routine Exams 04/12/20 09:02 Completed XR KUB 67990 Rout ine Exams 04/12/20 17:13 Completed XR KUB portable 7 4018 Stat Exams 04/12/20 15:46 Completed US OB limited 768 15 Stat Ultrasound 04/11/20 10:47 Completed US kidney bilater al [US renal BI* 7 6770] Stat Ultrasound 04/11/20 10:47 Completed Pending at discharge Category Date Time Status Urine Culture Rou blanquita Lab 04/12/20 09:25 Results Pathology: Surgic al [PTH] Routine Pth 04/13/20 19:02 Received Vitals: Last Vital Signs Temp 98.4 F 04/14/20 04:31 Pulse 100 04/14/20 04:30 Resp 16 04/13/20 19:42 BP 106/57 04/14/20 04:30 Pulse Ox 96 04/13/20 21:39 Discharge Plan Discharge Patient Disposition: Home Condition: Stable Prescriptions: New hydrocodone-acetaminophen 5-325 mg Tablet 1 - 2 tab PO Q6H PRN (Reason: Moderate Pain) Qty: 30 RF: 0 phenazopyridine 100 mg Tablet 200 mg PO TID PRN (Reason: Dysuria) Qty: 9 RF: 0 Continued ondansetron 4 mg tablet,disintegrating 4 mg PO Q8H PRN (Reason: nausea and vomiting) Qty: 14 RF: 0 citalopram 20 mg tablet 20 mg PO DAILY RF: 0 clotrimazole 1 % cream 1 applic TOPICAL BID 14 Days Qty: 28 RF: 0 Discharge Orders: Discharge Order (Routine); Ordered 04/14/20 Ordered By: Geovanni Eisenberg Discharge Diet: Usual diet Discharge Activity: Resume usual activity Activity Restrictions/Additional Instructions: Please follow-up with Dr. Mendez next week for possible removal of stent and keep appointment with Dr. Sanchez for May 06. 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
[2020-04-14] MEDS: alum-mag-hydroxide-sime 30 mL UDC PO (09:38)
== END 2020-04-14 10:40 | disposition home or self-care (01) | DRG 818 ==
LOC: OPOB 13:25 → OBGYN 13:25
PROVIDERS: Urology; Admitting Provider Family Medicine; PCP Family Medicine; Visit Provider Family Medicine
PROC: 0TJB8ZZ Inspection of Bladder, Via Natural or Artificial Opening Endoscopic (ICD-10-PCS; CPT 52000; principal; 2020-04-13 16:00)
PROC: 0T768DZ Dilation of Right Ureter with Intraluminal Device, Via Natural or Artificial Opening Endoscopic (ICD-10-PCS; 2020-04-13 16:00)
PROC: 0TJ98ZZ Inspection of Ureter, Via Natural or Artificial Opening Endoscopic (ICD-10-PCS; CPT 52351; 2020-04-13 16:00)
PROC: 0T768DZ Dilation of Right Ureter with Intraluminal Device, Via Natural or Artificial Opening Endoscopic (ICD-10-PCS; CPT 74420; 2020-04-13 16:00)
DX: O99.891 Other specified diseases and conditions complicating pregnancy (principal); N13.1 Hydronephrosis with ureteral stricture, not elsewhere classified; Z3A.23 23 weeks gestation of pregnancy; O23.12 Infections of bladder in pregnancy, second trimester
CPT/HCPCS: 12345; 36415; 59025; 74018; 74400; 76000; 76770; 76815; 80053; 81001; 85025; 87086; 88307; 96375; 99211; G0378; J0690; J2270; J2405; J2704; J3010; J7030; Q9967

== ENCOUNTER → 2020-04-20 14:07 | Outpatient (BNVA) | payer MEDICAID, SELFPAY | PROVIDERS: PCP Family Medicine; Visit Provider Urology | DX: N39.0 Urinary tract infection, site not specified (principal); R10.9 Unspecified abdominal pain; Z96.0 Presence of urogenital implants | CPT/HCPCS: 81003 ==

== ENCOUNTER 2020-05-05 22:57 | Outpatient (CLI) | payer MEDICAID, SELFPAY ==
[2020-05-05 23:28] VITALS: BP 110/69; PULSE 85
[2020-05-05 23:31] VITALS: RESP 16
[2020-05-05 23:33] VITALS: BMI 27.7
[2020-05-05 23:43] VITALS: BP 93/57; PULSE 87
[2020-05-05 23:46] VITALS: RESP 18
[2020-05-05] MEDS: morphine 4 mg/mL SDV 1 mL IM (23:46)
[2020-05-05 23:58] VITALS: BP 95/52; PULSE 75
[2020-05-06 00:13] VITALS: BP 96/58; PULSE 73
[2020-05-06 00:36] VITALS: RESP 16
[2020-05-06] MEDS: oxyCODONE-APAP 5-325 mg Tablet 1 TAB PO ×2 (00:36)
== END 2020-05-06 00:41 | disposition home or self-care (01) ==
LOC: OPOB 22:59 → OBGYN 23:02
PROVIDERS: PCP Family Medicine; Visit Provider Family Medicine
DX: O26.899 Other specified pregnancy related conditions, unspecified trimester (principal); Z3A.00 Weeks of gestation of pregnancy not specified; R52 Pain, unspecified
CPT/HCPCS: 99211; J2270

== ENCOUNTER → 2020-05-06 11:45 | Outpatient (BNVA) | payer MEDICAID, SELFPAY | PROVIDERS: PCP Family Medicine; Visit Provider Urology | DX: N13.30 Unspecified hydronephrosis (principal); Z96.0 Presence of urogenital implants | CPT/HCPCS: 81003 ==

== ENCOUNTER → 2020-05-23 12:14 | Day surgery (SDC) | payer MEDICAID, SELFPAY ==
[2020-05-23 13:09] VITALS: BMI 27.6
--- NOTE | 2020-05-23 13:29 | ANES.PREANE2 ---
Pre-Anesthetic Assessment Pre-Anesthetic Assessment: Height/Weight: Height 1.55 m Weight 66.224 kg Preop Diagnosis: Right ureteral obstruction at 23 weeks estimated gestational age intrauteri Proposed Procedure: epidural Familial anesthetic complications: IUP Social: Social History: No alcohol and No tobacco Exam: Pre-Anes Outpt Exam: alert, oriented x 3, clear to auscultation bilaterally and regular rate & rhythm Airway: Cervical ROM: WNL MP: 2 Dentition: Full and Other (braces) : : UTI (chronic) Comments: ureteral stents Anesthetic Plan: ASA status: 2 Anesthesia: Regional (specify below) Risk of > 500 ml blood loss (7ml/kg in children): Yes, adequate IV access and fluids planned PFSH Anesthesia PFSH: Medical History Bilateral ovarian cysts Hyperglycemia Recurrent cystitis Surgical History History of tonsillectomy and adenoidectomy Family History Other Diabetes Hypertension Social History Smoking and tobacco status: never smoked Alcohol intake: never Adopted: No Caregiver/support person: No Marital status: Single Data Anesthesia Cardiac Studies: No Data to Display
[2020-05-23 14:19] VITALS: BP 110/64; PULSE 90; RESP 18; TEMP 37
[2020-05-23 14:28] VITALS: BP 110/64; PULSE 90; RESP 18; TEMP 37; O2SAT 100
--- NOTE | 2020-07-28 20:48 | ANES.PROC ---
Anesthesia Procedures Procedure/Date: 07/28/20 Epidural: Time Out Performed: Yes Consents Signed: Procedure Consent and NPO Consent Consent: requested by attending/covering physician, from patient, risks and benefits reviewed and patient agrees to proceed Lumbar Level: L3-L4 Epidural position: sitting Epidural procedure: sterile prep of area (betadine), 1% lidocaine to numb the area, 18 g needle, neg for paresthesia, test dose given, 1.5% xylocaine 1:200k epi (5ml), 0.2% Ropivacaine bolus ml (5ml), placed PCEA, no systemic response, sterile dressing applied, L.U.D. no apparent complications and 0.2% Ropiavacaine @ mls/hr (10ml/hr)
== END ==
PROVIDERS: PCP Family Medicine; Visit Provider Family Medicine
DX: O26.899 Other specified pregnancy related conditions, unspecified trimester (principal); Z3A.00 Weeks of gestation of pregnancy not specified; Z67.91 Unspecified blood type, Rh negative; Z31.82 Encounter for Rh incompatibility status
CPT/HCPCS: 36430; 86850; 86900; 90384

== ENCOUNTER 2020-05-28 15:30 | Observation (INO) | payer MEDICAID, SELFPAY ==
[2020-05-28] VITALS (10 sets, daily range): BP systolic 97–118; BP diastolic 58–73; PULSE 75–104; RESP 18; TEMP 36.2–36.7; O2SAT 99; BMI 27.1
[2020-05-28 16:36] LABS: Bilirubin Urine Neg (Negative); Blood Urine Neg (Negative); Glucose Urine UA Norm (Normal); Ketones Urine Negative (Negative); Leukocyte Esterase Urine Trace (Negative); Nitrate Urine Negative (Negative); Protein Urine Neg (Negative); Urine Color Yellow (Yellow); Urobilinogen Urine Norm (Negative); pH Urine 7 (5-7)
[2020-05-28 16:37] LABS: Bacteria Urine 2+ /hpf; Squamous Epithelial Cell Urine 15-25 /hpf (0-5); Urine Appearance Hazy (CLEAR)
[2020-05-28 16:38] LABS: Add Urine Culture? No; Amorphous Sediment Urine 1+ /hpf; Mucus Urine 1+ /hpf
[2020-05-28] MEDS: ondansetron 2 mg/ML SDV 2 mL 4 MG IVP (16:47)
[2020-05-28] MEDS: sodium chloride 0.9% 1,000 ML 999 ML IV (16:48)
[2020-05-28] MEDS: calcium carbonate 500 mg Chew Tablet PO (17:27)
== END 2020-05-28 17:53 | disposition home or self-care (01) ==
PROVIDERS: Admitting Provider Family Medicine; PCP Family Medicine; Visit Provider Family Medicine
DX: O26.899 Other specified pregnancy related conditions, unspecified trimester (principal); Z3A.00 Weeks of gestation of pregnancy not specified; R25.2 Cramp and spasm
CPT/HCPCS: 81001; 83986; 87086; 96360; 99211; G0378; G0379; J2405; J7030

== ENCOUNTER 2020-06-30 08:14 | Observation (INO) | payer MEDICAID, SELFPAY ==
[2020-06-30] VITALS (9 sets, daily range): BP systolic 117–137; BP diastolic 76–93; PULSE 88–111; RESP 16–20; TEMP 36.3–36.4; O2SAT 99
[2020-06-30] MEDS: HYDROcodone-acetaminophen 5-325 mg Tablet 1 TAB PO (04:59)
[2020-06-30 05:49] LABS: Bilirubin Urine Neg (Negative); Blood Urine Neg (Negative); Glucose Urine UA Norm (Normal); Ketones Urine Negative (Negative); Leukocyte Esterase Urine Negative (Negative); Nitrate Urine Negative (Negative); Protein Urine Neg (Negative); Urine Appearance Clear (CLEAR); Urine Color Yellow (Yellow); Urobilinogen Urine Norm (Negative); pH Urine 6 (5-7)
[2020-06-30 05:50] LABS: Bacteria Urine TRACE /hpf; Mucus Urine 2+ /hpf; RBC Urine RARE /hpf (0-2); Squamous Epithelial Cell Urine 0-4 /hpf (0-5); WBC Urine RARE /hpf (0-5)
[2020-06-30] MEDS: terbutaline 1 mg/mL INJ 0.25 MG SUBCUT (06:16)
[2020-06-30 07:06] LABS: Add Urine Culture? No
== END 2020-06-30 10:23 | disposition home or self-care (01) ==
LOC: OPOB 08:15 → OBGYN 08:15
PROVIDERS: Admitting Provider Family Medicine; PCP Family Medicine; Visit Provider Family Medicine
DX: O26.899 Other specified pregnancy related conditions, unspecified trimester (principal); Z3A.00 Weeks of gestation of pregnancy not specified; R10.9 Unspecified abdominal pain
CPT/HCPCS: 59025; 81001; 96372; 99211; G0378; J3105

== ENCOUNTER 2020-07-28 13:01 | Inpatient (IN) | payer MEDICAID, SELFPAY ==
[2020-07-28] VITALS (55 sets, daily range): BP systolic 106–150; BP diastolic 58–99; PULSE 75–115; RESP 17–18; TEMP 36.2–36.8; O2SAT 86–100; BMI 26.9
[2020-07-28 12:56] LABS: Basophils # 0.1 10^3/uL (0.0-0.1); Basophils % 0.5 %; Eosinophils # 0.1 10^3/uL (0.0-0.8); Eosinophils % 1.3 %; Hematocrit 40.9 % (37.0-47.0); Hemoglobin 12.8 g/dL (11.5-15.3); Lymphocytes # 2.5 10^3/uL (0.8-4.8); Lymphocytes % 22.6 %; Mean Corpuscular HGB Conc 31.3 g/dL (30.0-36.0); Mean Corpuscular Hemoglobin 31.2 pg (28.0-34.0); Mean Corpuscular Volume 99.8 fL (81-99); Mean Platelet Volume 12.4 fL (7.4-10.4); Monocytes # 0.9 10^3/uL (0.2-0.9); Monocytes % 8.3 %; Neutrophils # 7.29 10^3/uL (1.8-7.7); Neutrophils % 66.8 %; Nucleated Red Blood Cells % 0 %; Platelet Count 254 10^3/cmm (130-400); Red Cell Distribution Width 13.6 % (12.1-15.1); White Blood Count 10.9 10^3/uL (4.0-10.0)
[2020-07-28] MEDS: dextrose 5%-lactated ringers 1,000 ML 125 ML IV (17:31)
[2020-07-28] MEDS: oxytocin 30 UNIT/500 ML BAG IV (17:32)
[2020-07-28] MEDS: ondansetron 2 mg/ML SDV 2 mL 4 MG IVP ×2 (17:49→22:02)
[2020-07-28] MEDS: lactated ringers 1,000 ML 999 ML IV (19:15)
[2020-07-29] VITALS (55 sets, daily range): BP systolic 106–157; BP diastolic 60–107; PULSE 75–120; RESP 16–18; TEMP 36.4–37.1
[2020-07-29] MEDS: acetaminophen 325 mg Tablet 650 MG PO (00:20)
[2020-07-29] MEDS: dextrose 5%-lactated ringers 1,000 ML 125 ML IV ×2 (00:21→07:27)
[2020-07-29] MEDS: alum-mag-hydroxide-sime 30 mL UDC PO ×2 (00:40→07:27)
--- NOTE | 2020-07-29 07:05 | PM.OBGYHP ---
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 She arrived to the hospital yesterday was grossly ruptured membranes. Her membranes ruptured just prior to arrival to hospital at 12 noon. Her was relatively unremarkable, but she did have a stent placed due to right hydronephrosis. The stent was removed. Her glucose screen was borderline at 135. Her blood type is O-. Her drug screen was negative. She was rubella immune. Her Covid status is negative. Her group B strep status is negative. Otherwise the remainder of her labs are within normal limits. Otherwise her has been relatively unremarkable. Present Details : 1 Para: 0 Labs Rubella: Immune RPR: Negative GBS: Negative Review of Systems General: Reports: 10 or more systems reviewed and unremarkable except in HPI and below Const: Reports: fatigue; Denies: fever(s) Eyes: Denies: change in vision Card: Denies: chest pain Musc: Reports: back pain Dale/Lymph: Denies: easy bruising Medications/Allergies Home Medications Medication Instructions Recorded Confirmed Last Taken Type PNV,calcium 47-[id number]-[id number] acid tab 07/28/20 07/27/20 20:00 History [ Vitamin Plus Low Iron] famotidine 07/28/20 Unknown History famotidine 07/28/20 07/27/20 20:00 History ondansetron HCl 07/28/20 07/27/20 20:00 History sertraline mg 07/28/20 Unknown History sertraline mg 07/28/20 07/27/20 20:00 History Allergies Allergy/AdvReac Type Severity Reaction Status Date / Time Sulfa (Sulfonamide Allergy Unknown UNKNOWN Verified 10/27/19 14:46 Antibiotics) sulfamethoxazole Allergy ALGY-Hives Verified 04/11/20 09:42 [From Bactrim] trimethoprim [From Bactrim] Allergy ALGY-Hives Verified 04/11/20 09:42 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 PFSH: Medical History Bilateral ovarian cysts Hyperglycemia Recurrent cystitis Surgical History History of tonsillectomy and adenoidectomy Family History Other Diabetes Hypertension Social History Smoking and tobacco status: never smoked Alcohol intake: never Adopted: No Caregiver/support person: No Marital status: Single Personal Safety: Do you feel safe at home: Yes Victim of physical abuse: No Victim of emotional abuse: No Victim of sexual abuse: No Would you like help information on resources?: No Vitals/I&O/Wt Last Vital Signs Temp 97.5 F L 07/29/20 06:27 Pulse 96 07/29/20 06:53 Resp 18 07/28/20 12:45 BP 109/70 07/29/20 06:53 Pulse Ox 98 07/28/20 20:25 07/28/20 07/29/20 07/29/20 22:59 06:59 14:59 Intake Total 1311.384 / 1311.384 515.433 / 1826.817 Output Total 400 / 400 Balance 1311.384 / 1311.384 115.433 / 1426.817 Weight last 48 hrs Weight 157 lb Physical Exam Const: COMMON NORMALS: patient oriented x3 and alert HENMT: COMMON NORMALS: moist oral mucous membranes HEAD & SCALP: normal to inspection Chest: COMMONS NORMALS: normal inspection of the chest Resp: COMMON NORMALS: clear to auscultation bilaterally AUSCULTATION: clear to auscultation bilaterally Cardio: COMMON NORMALS: regular rate and regular rhythm RATE: regular rate RHYTHM: regular rhythm GI: INSPECTION: Yes normal to inspection and Yes other (Gravid) Extremity: COMMON NORMALS: normal to inspection GENERAL: Yes edema (Trace) Neuro: COMMON NORMALS: patient oriented x3, moves all extremities and no sensory deficits noted SENSORIUM/ORIENTATION: Yes alert Psych: COMMON NORMALS: mental status grossly normal Skin: COMMON NORMALS: no rashes or lesions noted GENERAL SKIN EXAM: no rashes or lesions noted Urinary Catheter Management^: Anglin: Cath Placed During This Visit: yes Reason for Continuing Indwelling Catheter: Required Immobilization for Trauma or Surgery or Anesthesia Urinary Catheter Date of Insertion: 07/28/20 Urinary Catheter Time of Insertion: 21:30 Data : 07/28/20 12:30 A&P Assessment and plan (1) 38 weeks gestation of : Status: Acute (2) Spontaneous rupture of membranes: After not demonstrating a regular contraction pattern for several hours, she has been started on Pitocin. She has been on Pitocin since that time. Her membranes have now been ruptured for approximately 18 hours. There have been no fevers or any other indication for antibiotic coverage at this point. We will continue to monitor her status and reevaluate the need for antibiotics throughout the remainder of her labor process. Status: Acute Attestations Medical Necessity Statement*: I anticipate routine labor and care. Coding Level of Care Code Acute Client Advocate for Hirag Fwd Diagnoses 38 weeks gestation of Z3A.38 Spontaneous rupture of membranes
[2020-07-29] MEDS: oxytocin 30 UNIT/500 ML BAG 600 UNIT IV (11:00)
--- NOTE | 2020-07-29 11:23 | PM.DELIVERY ---
Delivery Note: Date of delivery: July 29, 2020 Pre-delivery diagnoses: 19-year-old 1 at 38 weeks estimated gestational age Post-delivery diagnoses: Same Procedure: Spontaneous vaginal delivery Op report anesthesia: Epidural Estimated blood loss (mL): 300 Pre-Delivery Course: The patient is a 19-year-old 1 who presented to the hospital with spontaneous rupture membranes. She was placed on Pitocin, and gradually progressed to complete overnight. Meconium was noted. She was GBS negative. Covid negative. There were no other concerns. Delivery: DELIVERY: The patient progressed to complete without difficulty. She delivered a male with a weight of 6 pound 9 ounces with Apgars of 8, 9. The baby was delivered from the JUAN LUIS position and placed on the mother's abdomen. The cord was then clamped and cut 1 minute after delivery. There was no nuchal cord. Meconium was noted. The placenta and 3 vessel cord were delivered intact shortly thereafter. The perineum and vaginal vault were carefully examined. A second-degree posterior midline vaginal tear was noted. It was repaired with 3-0 Vicryl in usual fashion.. Both the mother and the baby were in stable condition. Post-Delivery Status: Good A&P Assessment and plan (1) 38 weeks gestation of : Status: Acute (2) Spontaneous rupture of membranes: Status: Acute Coding Level of Care Code Acute Fan Blade Truer for Chg Fwd Diagnoses 38 weeks gestation of Z3A.38 Spontaneous rupture of membranes
[2020-07-29] MEDS: ibuprofen 800 mg tablet PO ×2 (13:53→20:40)
[2020-07-29] MEDS: benzocaine-menthol 78 gm Canister 1 SPRAY TOPICAL (14:31)
[2020-07-29] MEDS: docusate sodium 100 mg Capsule PO (18:36)
[2020-07-29] MEDS: HYDROcodone-acetaminophen 5-325 mg Tablet PO (21:58)
[2020-07-29 23:25] LABS: Hematocrit 29.5 % (37.0-47.0); Hemoglobin 9.4 g/dL (11.5-15.3); Mean Corpuscular HGB Conc 31.9 g/dL (30.0-36.0); Mean Corpuscular Hemoglobin 31.3 pg (28.0-34.0); Mean Corpuscular Volume 98.3 fL (81-99); Mean Platelet Volume 12.1 fL (7.4-10.4); Platelet Count 206 10^3/cmm (130-400); Red Cell Distribution Width 13.5 % (12.1-15.1); White Blood Count 14.7 10^3/uL (4.0-10.0)
[2020-07-30 04:02] VITALS: BP 124/77; PULSE 101
[2020-07-30 04:06] VITALS: TEMP 36.4
[2020-07-30] MEDS: HYDROcodone-acetaminophen 5-325 mg Tablet PO (04:55)
--- NOTE | 2020-07-30 08:41 | PM.OBGYDC ---
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 She appears comfortable. Her heart has a regular rate and rhythm with no murmurs appreciated. Lungs are clear to auscultation bilaterally. Her fundus is firm and below the umbilicus. Urinary Catheter Management^: Anglin: Cath Placed During This Visit: yes, but has since been removed by the nurse Reason for Continuing Indwelling Catheter: Decision to DC Catheter Urinary Catheter Date of Insertion: 07/28/20 Urinary Catheter Time of Insertion: 21:30 Date Urinary Catheter Removed: 07/29/20 Time Urinary Catheter Discontinued: 09:30 Discharge Data Data Completed and Pending: Pending at discharge Category Date Time Status Complete Crossmat ch Routine Lab 07/28/20 12:30 Results Rho D Immune Glob ulin Routine Lab 07/28/20 12:30 Results Type and Screen R outine Lab 07/28/20 12:30 Results Labs from last 24 hours 07/29/20 07/29/20 07/28/20 23:10 23:10 12:30 WBC 14.7 H RBC 3.00 L Hgb 9.4 L Hct 29.5 L MCV 98.3 MCH 31.3 MCHC 31.9 RDW 13.5 Plt Count 206 MPV 12.1 H Blood Type O Negative Rho(D) Type Negative / 0 Antibody Screen Negative Screen Negative Vitals: Last Vital Signs Temp 97.5 F L 07/30/20 04:06 Pulse 101 H 07/30/20 04:02 Resp 16 07/29/20 15:28 BP 124/77 07/30/20 04:02 Pulse Ox 98 07/28/20 20:25 Discharge Plan Discharge Patient Disposition: Home Condition: Stable Prescriptions: New ibuprofen 800 mg Tablet 800 mg PO TID Qty: 30 RF: 0 sertraline 50 mg Tablet 25 mg PO DAILY Qty: 30 RF: 2 Changed Vitamin Plus Low Iron 27 mg iron- 1 mg tablet 1 tab PO DAILY Qty: 90 RF: 2 Discontinued sertraline 25 mg tablet RF: 0 ondansetron HCl 4 mg tablet RF: 0 famotidine 20 mg tablet RF: 0 sertraline 25 mg tablet RF: 0 famotidine 20 mg tablet RF: 0 Discharge Orders: Discharge Order (Routine); Ordered 07/30/20 Ordered By: Donald Sanchez Referrals: Donald Sanchez MD [Physician] - 6 Weeks Discharge Diet: Usual diet Discharge Activity: Limit activity as instructed Discharge Attestations SPRAY BOOTH OPERATOR Time Spent in Discharge Care*: less than 30 min Coding Level of Care Code Acute Electrical Wirer for [facility] [facility] Diagnoses 38 weeks gestation of Z3A.38 Spontaneous rupture of membranes
[2020-07-30] MEDS: docusate sodium 100 mg Capsule PO (10:40)
[2020-07-30] MEDS: ibuprofen 800 mg tablet PO (10:40)
[2020-07-30] MEDS: sertraline 50 mg Tablet 25 MG PO (10:41)
[2020-07-30] MEDS: prenatal vitamin Capsule 1 CAP PO (10:41)
[2020-07-30 10:43] VITALS: BP 128/62; PULSE 94
[2020-07-30] MEDS: benzocaine-menthol 78 gm Canister 1 SPRAY TOPICAL (13:01)
[2020-07-30 13:03] VITALS: BP 125/79; PULSE 84; RESP 17; TEMP 36.6
[2020-07-30 13:05] VITALS: BP 125/79; PULSE 84
[2020-07-30 13:10] VITALS: BP 125/79; PULSE 84; RESP 17; TEMP 36.6
== END 2020-07-30 13:20 | disposition home or self-care (01) | DRG 807 ==
LOC: OBGYN 07-29 07:53 → OPOB 07-29 07:53
PROVIDERS: Admitting Provider Family Medicine; PCP Family Medicine; Visit Provider Family Medicine
DX: O99.344 Other mental disorders complicating childbirth (principal); Z37.0 Single live birth; F32.9 Major depressive disorder, single episode, unspecified; O99.334 Smoking (tobacco) complicating childbirth; F17.210 Nicotine dependence, cigarettes, uncomplicated; O34.83 Maternal care for other abnormalities of pelvic organs, third trimester; N83.202 Unspecified ovarian cyst, left side; N83.201 Unspecified ovarian cyst, right side; O77.0 Labor and delivery complicated by meconium in amniotic fluid; O70.1 Second degree perineal laceration during delivery; Z3A.38 38 weeks gestation of pregnancy
CPT/HCPCS: 12345; 36415; 51702; 59025; 59409; 83986; 85025; 85027; 85460; 86850; 86900; 90384; 99211; J2405; J2795

== ENCOUNTER 2020-12-02 01:48 | Emergency (ER) | payer MEDICAID, SELFPAY ==
[2020-12-02 02:03] VITALS: BP 119/81; PULSE 88; RESP 18; TEMP 37.1; O2SAT 94; BMI 25.4
[2020-12-02 02:17] VITALS: BP 119/81; PULSE 83; RESP 18; TEMP 37.2; O2SAT 94
--- NOTE | 2020-12-02 03:20 | W.ED.GENADLT ---
HPI - General Adult General: Chief complaint: Psychiatric Symptoms Stated complaint: si Time Seen by Provider: 12/02/20 01:58 History of Present Illness: HPI narrative: HPI: [20]yo patient w/ hx of depression presents for On arrival, the patient is AAOx3 and cooperative with my evaluation. No focal complaints of chest pain, shortness of breath, palpitations, N/V, focal GI/ complaints. Currently reports SI without any plan. No complaints of hallucinations. Onset: chronic Duration: ongoing Location: home Severity: severe Review of Systems Narrative: Constitutional: No fever, no chills. HEENT: No vision changes CV: No chest pain, no palpitations PULM: No productive cough, no dyspnea. GI: No abdominal pain, no N/V/D. : No dysuria MSKEL: No muscle pain SKIN: No new rashes, no lesions. NEURO: No headache, no focal weakness. HEME: No visible bruises PSYCH: Normal mood PFSH ED PFSH: Medical History Bilateral ovarian cysts Hyperglycemia Recurrent cystitis Surgical History History of tonsillectomy and adenoidectomy Family History Other Diabetes Hypertension Social History Smoking and tobacco status: never smoked Alcohol intake: never Adopted: No Caregiver/support person: No Marital status: Single Physical Exam Narrative: EXAM NARRATIVE: Head: Atraumatic Eyes: PERRL, conjunctiva without injection, eyes tracking ENT: Mucous membrane moist NECK: Supple without lymphadenopathy LUNGS: LCTAB CV: RRR ABDOMEN: Soft, nontender EXTREMITY: Normal ROM SKIN: No rash or erythema NEURO: Awake and alert. No focal weakness PSYCH: Cooperative mood and affect. +depressed affect Course Vital Signs: Vital signs: Vital Signs Temperature 98.9 F 12/02/20 02:17 Pulse Rate 83 12/02/20 02:17 Respiratory Rate 18 12/02/20 02:17 Blood Pressure 119/81 12/02/20 02:17 Pulse Oximetry 94 12/02/20 02:17 MDM - General Adult MDM Narrative: Medical decision making narrative: [20]yo patient presenting for acute depression and suicidal ideation. HDS, exam within normal limit Thoughts are linear and organized, and the patient has no AH/VH, or HI. Clinically the patient displays no overt toxidrome; they are well appearing, with low suspicion for toxic ingestion given history and exam. Symptoms unlikely 2/2 anemia, hypothyroidism, infection, or ICH. Workup: CBC, CMP, Lipase, UDS, salicylate/tylenol Lab findings: wnl [5:20] On reassessment, labs and workup wnl. Patient is hemodynamically stable with no acute medical complaints. Case discussed with psychiatric provider Dr. Shirley Lepe who evaluated patient via telepsych with recommendation for outpatient psychiatry followup and a script for buspirone 10mg BID x 30 days. Again patient reassures me that she is currently not suicidal or homicidal. Patient does not have a plan at this time. I have given patient explicit instructions to follow-up with our outpatient psychiatrist. Disposition: Discharge. Patient is given strict return precaution for any worsening symptoms of depression, any thoughts of hurting self or others, or any new or concerning complaints. Lab Data: Labs: Lab Results 12/02/20 12/02/20 12/02/20 Range/Units 02:20 02:20 03:30 WBC (4.0-10.0) 10^3/ uL RBC (4.1-5.3) 10^6/u L Hgb (11.5-15.3) g/dL Hct (37.0-47.0) % MCV (81-99) fL MCH (28.0-34.0) pg MCHC (30.0-36.0) g/dL RDW (12.1-15.1) % Plt Count (130-400) 10^3/c mm MPV (7.4-10.4) fL Neut % (Auto) % Lymph % (Auto) % [place] % (Auto) % Eos % (Auto) % Baso % (Auto) % Neut # (Auto) (1.8-7.7) 10^3/u L Lymph # (Auto) (0.8-4.8) 10^3/u L [place] # (Auto) (0.2-0.9) 10^3/u L Eos # (Auto) (0.0-0.8) 10^3/u L Baso # (Auto) (0.0-0.1) 10^3/u L Nucleated RBC % (a uto) % Nucleated RBCs # /100WBC Sodium 138 (136-145) mmol/L Potassium 3.8 (3.5-5.1) mmol/L Chloride 101 (98-107) mmol/L Carbon Dioxide 26 (22-29) mmol/L Anion Gap 14.8 (5-19) BUN 13 (6-20) mg/dL Creatinine 0.6 (0.5-0.9) mg/dL GFR Calculation 125.0 (90-130) mL/min Glucose 85 (65-115) mg/dL Calculated Osmolal ity 285 (285-295) mOsm/k g Calcium 8.7 (8.5-10.5) mg/dL Total Bilirubin 0.4 (0.15-1.2) mg/dL AST 13 (0-32) U/L ALT 20 (0-33) U/L Alkaline Phosphata se 108 H (35-105) IU/L Total Protein 7.4 (6.6-8.7) g/dL Albumin 4.4 (3.5-5.2) g/dL Globulin 3.0 (1.3-4.6) g/dL Urine Color Yellow (Yellow) Urine Appearance Clear (CLEAR) Urine pH 5 (5-7) Ur Specific Gravit y 1.020 (1.005-1.030) Urine Protein Neg (Negative) Urine Glucose (UA) Norm (Normal) Urine Ketones 1+ H (Negative) Urine Blood 3+ H (Negative) Urine Nitrate Negative (Negative) Urine Bilirubin 1+ H (Negative) Urine Urobilinogen 1 H (Negative) mg/dL Ur Leukocyte Radha ase Negative (Negative) Urine RBC 0-4 H (0-2) /hpf Urine WBC 5-10 H (0-5) /hpf Ur Squamous Epith Cells 5-10 H (0-5) /hpf Amorphous Sediment Not Reportable Urine Bacteria Trace (NONE) /hpf Urine Mucus 3+ /hpf Salicylates < 0.3 L (3-10) mg/dL Urine Opiates Scre en Negative (Negative) ng/mL Acetaminophen < 5.0 L (10-30) ug/mL Ur Barbiturates Sc reen Negative (Negative) ng/mL Ur Phencyclidine S crn Negative (Negative) ng/mL Ur Amphetamines Sc reen Negative (Negative) ng/mL U Benzodiazepines Scrn Negative (Negative) ng/mL Urine Cocaine Scre en Negative (Negative) ng/mL U Marijuana (THC) Screen Positive H (Negative) ng/mL Ethyl Alcohol < 10 (0-10) mg/dL 12/02/20 Range/Units 03:30 WBC 9.8 (4.0-10.0) 10^3/ uL RBC 4.54 (4.1-5.3) 10^6/u L Hgb 12.6 (11.5-15.3) g/dL Hct 41.2 (37.0-47.0) % MCV 90.7 (81-99) fL MCH 27.8 L (28.0-34.0) pg MCHC 30.6 (30.0-36.0) g/dL RDW 14.5 (12.1-15.1) % Plt Count 303 (130-400) 10^3/c mm MPV 10.1 (7.4-10.4) fL Neut % (Auto) 64.3 % Lymph % (Auto) 26.7 % [place] % (Auto) 7.2 % Eos % (Auto) 0.9 % Baso % (Auto) 0.6 % Neut # (Auto) 6.28 (1.8-7.7) 10^3/u L Lymph # (Auto) 2.6 (0.8-4.8) 10^3/u L [place] # (Auto) 0.7 (0.2-0.9) 10^3/u L Eos # (Auto) 0.1 (0.0-0.8) 10^3/u L Baso # (Auto) 0.1 (0.0-0.1) 10^3/u L Nucleated RBC % (a uto) 0 % Nucleated RBCs # 0.0 /100WBC Sodium (136-145) mmol/L Potassium (3.5-5.1) mmol/L Chloride (98-107) mmol/L Carbon Dioxide (22-29) mmol/L Anion Gap (5-19) BUN (6-20) mg/dL Creatinine (0.5-0.9) mg/dL GFR Calculation (90-130) mL/min Glucose (65-115) mg/dL Calculated Osmolal ity (285-295) mOsm/k g Calcium (8.5-10.5) mg/dL Total Bilirubin (0.15-1.2) mg/dL AST (0-32) U/L ALT (0-33) U/L Alkaline Phosphata se (35-105) IU/L Total Protein (6.6-8.7) g/dL Albumin (3.5-5.2) g/dL Globulin (1.3-4.6) g/dL Urine Color (Yellow) Urine Appearance (CLEAR) Urine pH (5-7) Ur Specific Gravit y (1.005-1.030) Urine Protein (Negative) Urine Glucose (UA) (Normal) Urine Ketones (Negative) Urine Blood (Negative) Urine Nitrate (Negative) Urine Bilirubin (Negative) Urine Urobilinogen (Negative) mg/dL Ur Leukocyte Radha ase (Negative) Urine RBC (0-2) /hpf Urine WBC (0-5) /hpf Ur Squamous Epith Cells (0-5) /hpf Amorphous Sediment Urine Bacteria (NONE) /hpf Urine Mucus /hpf Salicylates (3-10) mg/dL Urine Opiates Scre en (Negative) ng/mL Acetaminophen (10-30) ug/mL Ur Barbiturates Sc reen (Negative) ng/mL Ur Phencyclidine S crn (Negative) ng/mL Ur Amphetamines Sc reen (Negative) ng/mL U Benzodiazepines Scrn (Negative) ng/mL Urine Cocaine Scre en (Negative) ng/mL U Marijuana (THC) Screen (Negative) ng/mL Ethyl Alcohol (0-10) mg/dL Discharge Plan Discharge Patient Disposition: Home Clinical Impression: Suicidal ideations Condition: Stable Prescriptions: New buspirone 10 mg tablet 10 mg PO BID 30 Days Qty: 60 RF: 0 No Action sertraline 50 mg Tablet 25 mg PO DAILY Qty: 30 RF: 2 Vitamin Plus Low Iron 27 mg iron- 1 mg tablet 1 tab PO DAILY Qty: 90 RF: 2 ibuprofen 800 mg Tablet 800 mg PO TID Qty: 30 RF: 0 Discharge Orders: Discharge ED (Routine); Ordered 12/02/20 Ordered By: Melvina Bass Referrals: Augustina Lepe MD [Primary Care Provider] - Discharge Diet: Regular Discharge Activity: Resume usual activity Patient Instructions: Depression (ED) Activity Restrictions/Additional Instructions: Come back to the emergency room if you have any more thoughts of hurting yourself or other people. Lease follow-up with our psychiatrist in the next 30 days for reevaluation of your symptoms. Please take the medicine as instructed. Coding Level of Care Code ED Commander Internal Affairs for Anabel Martin
[2020-12-02 03:26] LABS: Amphetamines Screen Urine Negative (Negative); Barbiturates Screen Urine Negative (Negative); Benzodiazepines Screen Urine Negative (Negative); Cocaine Screen Urine Negative (Negative); Opiate Screen Urine Negative (Negative); PCP Screen Urine Negative (Negative); THC Screen Urine Positive (Negative)
[2020-12-02 03:30] LABS: Add Urine Culture? No; Add Urine Microscopic? YES; Bacteria Urine TRACE /hpf; Bilirubin Urine 1+ (Negative); Blood Urine 3+ (Negative); Glucose Urine UA Norm (Normal); Ketones Urine 1+ (Negative); Leukocyte Esterase Urine Negative (Negative); Mucus Urine 3+ /hpf; Nitrate Urine Negative (Negative); Protein Urine Neg (Negative); RBC Urine 0-4 /hpf (0-2); Urine Appearance Clear (CLEAR); Urine Color Yellow (Yellow); Urobilinogen Urine 1 mg/dL (Negative); pH Urine 5 (5-7)
[2020-12-02 03:43] LABS: Basophils # 0.1 10^3/uL (0.0-0.1); Basophils % 0.6 %; Eosinophils # 0.1 10^3/uL (0.0-0.8); Eosinophils % 0.9 %; Hematocrit 41.2 % (37.0-47.0); Hemoglobin 12.6 g/dL (11.5-15.3); Lymphocytes # 2.6 10^3/uL (0.8-4.8); Lymphocytes % 26.7 %; Mean Corpuscular HGB Conc 30.6 g/dL (30.0-36.0); Mean Corpuscular Hemoglobin 27.8 pg (28.0-34.0); Mean Corpuscular Volume 90.7 fL (81-99); Mean Platelet Volume 10.1 fL (7.4-10.4); Monocytes # 0.7 10^3/uL (0.2-0.9); Monocytes % 7.2 %; Neutrophils # 6.28 10^3/uL (1.8-7.7); Neutrophils % 64.3 %; Nucleated Red Blood Cells % 0 %; Platelet Count 303 10^3/cmm (130-400); Red Blood Count 4.54 10^6/uL (4.1-5.3); Red Cell Distribution Width 14.5 % (12.1-15.1); White Blood Count 9.8 10^3/uL (4.0-10.0)
[2020-12-02 04:03] LABS: Alanine Aminotransferase 20 U/L (0-33); Albumin Level 4.4 g/dL (3.5-5.2); Alkaline Phosphatase 108 IU/L (35-105); Anion Gap 14.8 (5-19); Aspartate Amino Transferase 13 U/L (0-32); Blood Urea Nitrogen 13 mg/dL (6-20); Calcium 8.7 mg/dL (8.5-10.5); Carbon Dioxide 26 mmol/L (22-29); Chloride 101 mmol/L (98-107); Glucose 85 mg/dL (65-115); Osmolality Calculated 285 mOsm/kg (285-295); Potassium 3.8 mmol/L (3.5-5.1); Sodium 138 mmol/L (136-145); Total Bilirubin 0.4 mg/dL (0.15-1.2); Total Protein 7.4 g/dL (6.6-8.7)
[2020-12-02 04:04] LABS: Acetaminophen < 5.0 ug/mL (10-30); Alcohol Level < 10 mg/dL (0-10); Salicylate < 0.3 mg/dL (3-10)
[2020-12-02] MEDS: acetaminophen 500 mg Tablet PO (04:43)
[2020-12-02 07:05] VITALS: PULSE 90; RESP 18; O2SAT 99
[2020-12-02 07:17] VITALS: PULSE 90; RESP 18; O2SAT 99
--- NOTE | 2020-12-05 12:41 | DCPLANNER ---
ekg manager had message to speak with patient about getting services at [facility]. ekg manager called phone number [phone], unable to speak with patient, or leave a voicemail for patient. A recording stated that this was a non working number.
== END 2020-12-02 07:18 | disposition home or self-care (01) ==
PROVIDERS: Emergency Provider Emergency Medicine; PCP Family Medicine
DX: R45.851 Suicidal ideations (principal)
CPT/HCPCS: 80053; 80306; 80307; 81001; 85025; 99283

== ENCOUNTER 2021-08-04 16:50 | Inpatient (IN) | payer MEDICAID, SELFPAY ==
[2021-08-04] VITALS (46 sets, daily range): BP systolic 90–137; BP diastolic 53–82; PULSE 71–139; RESP 17–18; TEMP 35.9–36.4; O2SAT 88–100; BMI 28.3
--- NOTE | 2021-08-04 12:16 | US_ITS ---
WS: [id number] OB ultrasound, 08/04/2021 Clinical Data: spotting. Please check cervical length, placenta, and RADHA Comparison: None. Findings: There is a single intrauterine in the breech presentation. The cervix is 3.02 cm and closed . The placenta is fundal and grade 0. There is a normal amount of amnionic fluid, RADHA 12.00 cm. The heart rate is 136 beats per minute. US/US OB limited [id number] Impression: 1. Single intrauterine in breech presentation. 2. Closed cervix. 3. heart rate 136 beats per minute.
[2021-08-04] MEDS: acetaminophen 500 mg Tablet 1000 MG PO (12:32)
[2021-08-04] MEDS: lactated ringers 1,000 ML 999 ML IV ×2 (12:33→14:26)
[2021-08-04 12:55] LABS: Basophils % 0.5 %; Eosinophils # 0.2 10^3/uL (0.0-0.8); Eosinophils % 1.8 %; Hematocrit 40.1 % (37.0-47.0); Hemoglobin 13.1 g/dL (11.5-15.3); Lymphocytes # 2.7 10^3/uL (0.8-4.8); Lymphocytes % 32.5 %; Mean Corpuscular HGB Conc 32.7 g/dL (30.0-36.0); Mean Platelet Volume 10.9 fL (7.4-10.4); Monocytes # 0.7 10^3/uL (0.2-0.9); Monocytes % 8.6 %; Neutrophils # 4.68 10^3/uL (1.8-7.7); Neutrophils % 56.2 %; Nucleated Red Blood Cells % 0 %; Platelet Count 321 10^3/cmm (130-400); Red Blood Count 4.22 10^6/uL (4.1-5.3); Red Cell Distribution Width 13.4 % (12.1-15.1); White Blood Count 8.3 10^3/uL (4.0-10.0)
[2021-08-04 13:13] LABS: Add Urine Culture? No; Amphetamines Screen Urine Negative (Negative); Bacteria Urine TRACE /hpf; Barbiturates Screen Urine Negative (Negative); Benzodiazepines Screen Urine Negative (Negative); Bilirubin Urine Neg (Negative); Blood Urine Neg (Negative); Cocaine Screen Urine Negative (Negative); Glucose Urine UA Norm (Normal); Ketones Urine 1+ (Negative); Leukocyte Esterase Urine 1+ (Negative); Nitrate Urine Negative (Negative); Opiate Screen Urine Negative (Negative); PCP Screen Urine Negative (Negative); Protein Urine Neg (Negative); RBC Urine 0-4 /hpf (0-2); Specific Gravity, Urine 1.015 (1.005-1.030); THC Screen Urine Negative (Negative); Urine Appearance SL Hazy (CLEAR); Urine Color Yellow (Yellow); Urobilinogen Urine 1 mg/dL (Negative); WBC Urine 55-80 /hpf (0-5); pH Urine 6.5 (5-7)
[2021-08-04 13:14] LABS: Alanine Aminotransferase < 5 U/L (0-33); Albumin Level 3.7 g/dL (3.5-5.2); Alkaline Phosphatase 141 IU/L (35-105); Anion Gap 17.6 (5-19); Aspartate Amino Transferase 9 U/L (0-32); Blood Urea Nitrogen 6 mg/dL (6-20); Calcium 8.9 mg/dL (8.5-10.5); Carbon Dioxide 22 mmol/L (22-29); Chloride 100 mmol/L (98-107); Globulin 3.5 g/dL (1.3-4.6); Glomerular Filtration Rate 199.6 mL/min (90-130); Glucose 93 mg/dL (65-115); Osmolality Calculated 279 mOsm/kg (285-295); Potassium 3.6 mmol/L (3.5-5.1); Sodium 136 mmol/L (136-145); Total Bilirubin 0.2 mg/dL (0.15-1.2); Total Protein 7.2 g/dL (6.6-8.7)
[2021-08-04] MEDS: HYDROcodone-acetaminophen 5-325 mg Tablet 1 TAB PO (14:26)
[2021-08-04] MEDS: cephALEXin 500 mg Capsule PO (16:23)
[2021-08-04] MEDS: terbutaline 1 mg/mL INJ 0.25 MG SUBCUT (16:33)
--- NOTE | 2021-08-04 16:42 | P.TNLD_ITS ---
OB L&D Triage Visit Information: Date of evaluation: 08/04/21 Reason for evaluation: other (low back and abdominal pain ) Comments/Additional reason(s) for visit: Pt comes in via EMS complaining of low back and abdominal pain. Started this mo rning around 8am. Also noticed some blood on toilet paper when she wiped. Describes the pain as cramping and off and on , denies upper abdominal pain. Low back pain is tolerable and is both sides. The abdominal pain is what is bothering her the most. Denies other complications in this . She did think she had a yeast infection a week ago and took some OTC vaginal suppositories and feels like that helped. No longer having any vaginal itching. Her discharge has gotten thicker but denies any change in odor. Denies dysuria, LOF. movement is normal. Evaluation: Baseline heart rate: 140 Variability: Moderate (11-25) monitor accelerations: Present 10x10 station: -4 Laboratory results: Laboratory Tests 08/04/21 08/04/21 08/04/21 11:45 11:45 11:45 WBC 8.3 RBC 4.22 Hgb 13.1 Hct 40.1 MCV 95.0 MCH 31.0 MCHC 32.7 RDW 13.4 Plt Count 321 MPV 10.9 H Neut % (Auto) 56.2 Lymph % (Auto) 32.5 [place] % (Auto) 8.6 Eos % (Auto) 1.8 Baso % (Auto) 0.5 Neut # (Auto) 4.68 Lymph # (Auto) 2.7 [place] # (Auto) 0.7 Eos # (Auto) 0.2 Baso # (Auto) 0.0 Nucleated RBC % (a uto) 0 Nucleated RBCs # 0.0 Sodium Potassium Chloride Carbon Dioxide Anion Gap BUN Creatinine GFR Calculation Glucose Calculated Osmolal ity Calcium Total Bilirubin AST ALT Alkaline Phosphata se Total Protein Albumin Globulin Urine Color Yellow Urine Appearance Sl hazy Urine pH 6.5 Ur Specific Gravit y 1.015 Urine Protein Neg Urine Glucose (UA) Norm Urine Ketones 1+ H Urine Blood Neg Urine Nitrate Negative Urine Bilirubin Neg Urine Urobilinogen 1 H Ur Leukocyte Radha ase 1+ H Urine RBC 0-4 H Urine WBC 55-80 H Ur Squamous Epith Cells 10-15 H Amorphous Sediment Not Reportable Urine Bacteria Trace Urine Opiates Scre en Negative Ur Barbiturates Sc reen Negative Ur Phencyclidine S crn Negative Ur Amphetamines Sc reen Negative U Benzodiazepines Scrn Negative Urine Cocaine Scre en Negative U Marijuana (THC) Screen Negative 08/04/21 11:45 WBC RBC Hgb Hct MCV MCH MCHC RDW Plt Count MPV Neut % (Auto) Lymph % (Auto) [place] % (Auto) Eos % (Auto) Baso % (Auto) Neut # (Auto) Lymph # (Auto) [place] # (Auto) Eos # (Auto) Baso # (Auto) Nucleated RBC % (a uto) Nucleated RBCs # Sodium 136 Potassium 3.6 Chloride 100 Carbon Dioxide 22 Anion Gap 17.6 BUN 6 Creatinine 0.4 L GFR Calculation 199.6 H Glucose 93 Calculated Osmolal ity 279 L Calcium 8.9 Total Bilirubin 0.2 AST 9 ALT < 5 Alkaline Phosphata se 141 H Total Protein 7.2 Albumin 3.7 Globulin 3.5 Urine Color Urine Appearance Urine pH Ur Specific Gravit y Urine Protein Urine Glucose (UA) Urine Ketones Urine Blood Urine Nitrate Urine Bilirubin Urine Urobilinogen Ur Leukocyte Radha ase Urine RBC Urine WBC Ur Squamous Epith Cells Amorphous Sediment Urine Bacteria Urine Opiates Scre en Ur Barbiturates Sc reen Ur Phencyclidine S crn Ur Amphetamines Sc reen U Benzodiazepines Scrn Urine Cocaine Scre en U Marijuana (THC) Screen Vital signs: Vital Signs - 24 hr 08/04/21 11:53 08/04/21 11:54 08/04/21 12:16 Temperature 97.3 F L Pulse Rate 102 H Respiratory Rate 18 Blood Pressure 111/73 08/04/21 12:45 08/04/21 13:03 08/04/21 13:23 Temperature Pulse Rate 89 85 82 Respiratory Rate Blood Pressure 100/62 117/75 103/60 08/04/21 13:44 08/04/21 14:04 08/04/21 14:24 Temperature Pulse Rate 86 88 96 Respiratory Rate Blood Pressure 105/67 111/78 122/60 08/04/21 14:44 08/04/21 15:05 08/04/21 15:25 Temperature Pulse Rate 83 80 71 Respiratory Rate Blood Pressure 102/57 114/59 90/55 08/04/21 15:45 08/04/21 16:24 Temperature Pulse Rate 85 100 Respiratory Rate Blood Pressure 101/53 137/67 Final Diagnosis Final Diagnosis (1) contractions: Status: Acute Code(s): O47.00 - False labor before 37 completed weeks of gestation, unspecified trimester (2) labor: Plan: 20yo at 28w1d presenting with lower abdominal cramping found to have contractions. Cervix changed from closed/thick/high to fingertip/thick high. Given dose terbutaline. Repeat SVE /3. Decision made to transfer to [facility] for further care due to gestational age. Status: Acute Code(s): O60.00 - labor without delivery, unspecified trimester (3) Urinary tract infection: Plan: Dose keflex given. Status: Acute Code(s): N39.0 - Urinary tract infection, site not specified Coding Level of Care Code Acute Radiotelephone Technical Operator for [facility] Diagnoses contractions O47.00 labor O60.00 Urinary tract infection N39.0
[2021-08-04] MEDS: betamethasone susp 6 mg/mL 5 mL 12 MG IM (18:38)
--- NOTE | 2021-08-04 18:38 | PM.TDS ---
Transfer Summary Providers Date of Admission: 08/04/21 16:50 Date of Discharge/Transfer: 08/04/21 Attending Provider at Admission: Ashly Rasmussen DO Attending Provider at Transfer: Ashly Rasmussen DO Primary Care Provider: Augustina Lepe MD Transfer Plans: Anticipated date of transfer: 08/04/21. Receiving Facility: [facility] . Receiving Provider: Dr. Gar . Diagnoses at Discharge Discharge Diagnosis (1) contractions: Status: Acute (2) labor: Status: Acute (3) Urinary tract infection: Status: Acute Reason for Visit Reason for Visit abdominal and back pain Hospital Course Hospital Course Pt presented with lower abdominal pain starting at 8am after intercourse and vaginal spotting. Found to have contractions with initial SVE closed/thick/high. Labs unremarkable. UA with 1+ leuks and trace bacteria. Limited OB US with breech presentation, RADHA wnl, Cervical length >3cm. Given dose keflex 500mg and IV fluids. Continued to contract with a repeat SVE of fingertip/thick/high. Given dose terbutaline with decrease in intensity of contractions on toco but same frequency of contractions q1.5-3 minutes. Repeat SVE at approx 1800 was 1/40/-3. No vaginal bleeding noted on exams. Plan to transfer to [facility] for higher level of care. Given 1st dose betamethasone. Discussed case with Dr. Gar who requested 4mg Magnesium bolus with 2mg/hr continuous following with bolus to be given prior to transfer. Physical Exam Const: COMMON NORMALS: no acute distress, healthy appearing, alert and well nourished Resp: COMMON NORMALS: normal respiratory effort and clear to auscultation bilaterally AUSCULTATION: clear to auscultation bilaterally Cardio: COMMON NORMALS: regular rate, regular rhythm, S1 normal heart sound present and S2 normal heart sound present RATE: regular rate RHYTHM: regular rhythm HEART SOUNDS: S1 normal heart sound present and S2 normal heart sound present GI: COMMON NORMALS: Soft to palpation PALPATION: Yes Soft to palpation OTHER: no fundal tenderness, no RUQ or LUQ TTP, primarily suprapubic TTP, no significant LLQ or RLQ pain on palpation, no rebound tenderness and no guarding : COMMON NORMALS: Yes no CVA tenderness BLADDER/KIDNEY EXAM: Yes no CVA tenderness Back/Pelvis: COMMON NORMALS: no CVA tenderness OTHER: mild bilateral low lumbar TTP Extremity: COMMON NORMALS: normal to inspection and no pedal edema Neuro: SENSORIUM/ORIENTATION: Yes alert TS Data Studies Completed and Pending Pending at discharge Category Date Time Status Chlamydia / Gonorrhea Panel Routine Lab 08/04/21 11:45 Received Magnesium Level (OB Only) Q6H Lab 08/05/21 00:30 Uncollected Labs from last 24 hours 08/04/21 08/04/21 08/04/21 11:45 11:45 11:45 WBC 8.3 RBC 4.22 Hgb 13.1 Hct 40.1 MCV 95.0 MCH 31.0 MCHC 32.7 RDW 13.4 Plt Count 321 MPV 10.9 H Neut % (Auto) 56.2 Lymph % (Auto) 32.5 [place] % (Auto) 8.6 Eos % (Auto) 1.8 Baso % (Auto) 0.5 Neut # (Auto) 4.68 Lymph # (Auto) 2.7 [place] # (Auto) 0.7 Eos # (Auto) 0.2 Baso # (Auto) 0.0 Nucleated RBC % (auto) 0 Nucleated RBCs # 0.0 Sodium 136 Potassium 3.6 Chloride 100 Carbon Dioxide 22 Anion Gap 17.6 BUN 6 Creatinine 0.4 L GFR Calculation 199.6 H Glucose 93 Calculated Osmolality 279 L Calcium 8.9 Total Bilirubin 0.2 AST 9 ALT < 5 Alkaline Phosphatase 141 H Total Protein 7.2 Albumin 3.7 Globulin 3.5 Urine Color Yellow Urine Appearance Sl hazy Urine pH 6.5 Ur Specific [place] 1.015 Urine Protein Neg Urine Glucose (UA) Norm Urine Ketones 1+ H Urine Blood Neg Urine Nitrate Negative Urine Bilirubin Neg Urine Urobilinogen 1 H Ur Leukocyte Esterase 1+ H Urine RBC 0-4 H Urine WBC 55-80 H Ur Squamous Epith Cells 10-15 H Amorphous Sediment Not Reportable Urine Bacteria Trace Urine Opiates Screen Ur Barbiturates Screen Ur Phencyclidine Scrn Ur Amphetamines Screen U Benzodiazepines Scrn Urine Cocaine Screen U Marijuana (THC) Screen 08/04/21 11:45 WBC RBC Hgb Hct MCV MCH MCHC RDW Plt Count MPV Neut % (Auto) Lymph % (Auto) [place] % (Auto) Eos % (Auto) Baso % (Auto) Neut # (Auto) Lymph # (Auto) [place] # (Auto) Eos # (Auto) Baso # (Auto) Nucleated RBC % (auto) Nucleated RBCs # Sodium Potassium Chloride Carbon Dioxide Anion Gap BUN Creatinine GFR Calculation Glucose Calculated Osmolality Calcium Total Bilirubin AST ALT Alkaline Phosphatase Total Protein Albumin Globulin Urine Color Urine Appearance Urine pH Ur Specific [place] Urine Protein Urine Glucose (UA) Urine Ketones Urine Blood Urine Nitrate Urine Bilirubin Urine Urobilinogen Ur Leukocyte Esterase Urine RBC Urine WBC Ur Squamous Epith Cells Amorphous Sediment Urine Bacteria Urine Opiates Screen Negative Ur Barbiturates Screen Negative Ur Phencyclidine Scrn Negative Ur Amphetamines Screen Negative U Benzodiazepines Scrn Negative Urine Cocaine Screen Negative U Marijuana (THC) Screen Negative Completed Studies During Hospitalization Category Date Time Status [place] [id number] Stat Ultrasound 08/04/21 12:16 Completed Laboratory Last Values WBC 8.3 10^3/uL (4.0-10.0) 08/04/21 11:45 RBC 4.22 10^6/uL (4.1-5.3) 08/04/21 11:45 Hgb 13.1 g/dL (11.5-15.3) 08/04/21 11:45 Hct 40.1 % (37.0-47.0) 08/04/21 11:45 MCV 95.0 fl (81-99) 08/04/21 11:45 MCH 31.0 pg (28.0-34.0) 08/04/21 11:45 MCHC 32.7 g/dL (30.0-36.0) 08/04/21 11:45 RDW 13.4 % (12.1-15.1) 08/04/21 11:45 Plt Count 321 10^3/cmm (130-400) 08/04/21 11:45 MPV 10.9 fL (7.4-10.4) H 08/04/21 11:45 Neut % (Auto) 56.2 % 08/04/21 11:45 Lymph % (Auto) 32.5 % 08/04/21 11:45 [place] % (Auto) 8.6 % 08/04/21 11:45 Eos % (Auto) 1.8 % 08/04/21 11:45 Baso % (Auto) 0.5 % 08/04/21 11:45 Neut # (Auto) 4.68 10^3/uL (1.8-7.7) 08/04/21 11:45 Lymph # (Auto) 2.7 10^3/uL (0.8-4.8) 08/04/21 11:45 [place] # (Auto) 0.7 10^3/uL (0.2-0.9) 08/04/21 11:45 Eos # (Auto) 0.2 10^3/uL (0.0-0.8) 08/04/21 11:45 Baso # (Auto) 0.0 10^3/uL (0.0-0.1) 08/04/21 11:45 Nucleated RBC % (auto) 0 % 08/04/21 11:45 Nucleated RBCs # 0.0 /100WBC 08/04/21 11:45 Sodium 136 mmol/L (136-145) 08/04/21 11:45 Potassium 3.6 mmol/L (3.5-5.1) 08/04/21 11:45 Chloride 100 mmol/L (98-107) 08/04/21 11:45 Carbon Dioxide 22 mmol/L (22-29) 08/04/21 11:45 Anion Gap 17.6 (5-19) 08/04/21 11:45 BUN 6 mg/dL (6-20) 08/04/21 11:45 Creatinine 0.4 mg/dL (0.5-0.9) L 08/04/21 11:45 GFR Calculation 199.6 mL/min (90-130) H 08/04/21 11:45 Glucose 93 mg/dL (65-115) 08/04/21 11:45 Calculated Osmolality 279 mOsm/kg (285-295) L 08/04/21 11:45 Calcium 8.9 mg/dL (8.5-10.5) 08/04/21 11:45 Total Bilirubin 0.2 mg/dL (0.15-1.2) 08/04/21 11:45 AST 9 U/L (0-32) 08/04/21 11:45 ALT < 5 U/L (0-33) 08/04/21 11:45 Alkaline Phosphatase 141 IU/L (35-105) H 08/04/21 11:45 Total Protein 7.2 g/dL (6.6-8.7) 08/04/21 11:45 Albumin 3.7 g/dL (3.5-5.2) 08/04/21 11:45 Globulin 3.5 g/dL (1.3-4.6) 08/04/21 11:45 Urine Color Yellow (Yellow) 08/04/21 11:45 Urine Appearance Sl hazy (CLEAR) 08/04/21 11:45 Urine pH 6.5 (5-7) 08/04/21 11:45 Ur Specific [place] 1.015 (1.005-1.030) 08/04/21 11:45 Urine Protein Neg (Negative) 08/04/21 11:45 Urine Glucose (UA) Norm (Normal) 08/04/21 11:45 Urine Ketones 1+ (Negative) H 08/04/21 11:45 Urine Blood Neg (Negative) 08/04/21 11:45 Urine Nitrate Negative (Negative) 08/04/21 11:45 Urine Bilirubin Neg (Negative) 08/04/21 11:45 Urine Urobilinogen 1 mg/dL (Negative) H 08/04/21 11:45 Ur Leukocyte Esterase 1+ (Negative) H 08/04/21 11:45 Urine RBC 0-4 /hpf (0-2) H 08/04/21 11:45 Urine WBC 55-80 /hpf (0-5) H 08/04/21 11:45 Ur Squamous Epith Cells 10-15 /hpf (0-5) H 08/04/21 11:45 Amorphous Sediment Not Reportable 08/04/21 11:45 Urine Bacteria Trace /hpf (NONE) 08/04/21 11:45 Urine Opiates Screen Negative ng/mL (Negative) 08/04/21 11:45 Ur Barbiturates Screen Negative ng/mL (Negative) 08/04/21 11:45 Ur Phencyclidine Scrn Negative ng/mL (Negative) 08/04/21 11:45 Ur Amphetamines Screen Negative ng/mL (Negative) 08/04/21 11:45 U Benzodiazepines Scrn Negative ng/mL (Negative) 08/04/21 11:45 Urine Cocaine Screen Negative ng/mL (Negative) 08/04/21 11:45 U Marijuana (THC) Screen Negative ng/mL (Negative) 08/04/21 11:45 Radiology Impressions Obstetrics Ultrasound 08/04/21 12:16 Impression: 1. Single intrauterine in breech presentation. 2. Closed cervix. 3. heart rate 136 beats per minute. Recent Clincial Data Last Vital Signs Temp 97.5 F L 08/04/21 16:51 Pulse 126 H 08/04/21 18:34 Resp 18 08/04/21 12:16 BP 124/82 08/04/21 18:24 Pulse Ox 100 08/04/21 18:34 Vital Signs Temp Pulse Resp BP Pulse Ox 08/04/21 18:34 126 H 100 08/04/21 18:29 139 H 100 08/04/21 18:24 130 H 124/82 100 08/04/21 18:19 136 H 100 08/04/21 18:14 133 H 98 08/04/21 18:09 124 H 100 08/04/21 18:05 131 H 118/63 08/04/21 18:04 127 H 100 08/04/21 17:59 130 H 100 08/04/21 17:54 129 H 98 08/04/21 17:44 137 H 134/73 08/04/21 17:23 120 H 110/62 08/04/21 17:04 99 99/54 08/04/21 16:51 97.5 F L 08/04/21 16:43 117 H 124/71 08/04/21 16:24 100 137/67 08/04/21 15:45 85 101/53 08/04/21 15:25 71 90/55 08/04/21 15:05 80 114/59 08/04/21 14:44 83 102/57 08/04/21 14:24 96 122/60 08/04/21 14:04 88 111/78 08/04/21 13:44 86 105/67 08/04/21 13:23 82 103/60 08/04/21 13:03 85 117/75 08/04/21 12:45 89 100/62 08/04/21 12:16 18 08/04/21 11:54 97.3 F L 08/04/21 11:53 102 H 111/73 Intake & Output/Weight 08/02/21 08/03/21 08/04/21 08/05/21 06:59 06:59 06:59 06:59 Intake Total 2532.0 / 2532.0 Balance 2532.0 / 2532.0 Weight 150 lb Vitals Last Vital Signs Temp 97.5 F L 08/04/21 16:51 Pulse 126 H 08/04/21 18:34 Resp 18 08/04/21 12:16 BP 124/82 08/04/21 18:24 Pulse Ox 100 08/04/21 18:34 TS Medications Medications Acetaminophen (Acetaminophen 500 Mg Tablet) 1,000 mg PO Q6H PRN PRN Reason: mild pain or temp >100.4 Last Admin: 08/04/21 12:32 Dose: 1,000 mg Documented by: Cephalexin HCl (Cephalexin 500 Mg Capsule) 500 mg PO NOW THU; Protocol Last Admin: 08/04/21 16:23 Dose: 500 mg Documented by: Lactated Ringer's (Lactated Ringers) 1,000 mls @ 150 mls/hr IV .Q6H40M [facility] Last Infusion: 08/04/21 16:29 Dose: 0 mls/hr Documented by: Dextrose/Lactated Ringer's (Dextrose 5%-Lactated Ringers) 1,000 mls @ 125 mls/hr IV .Q8H THU Magnesium Sulfate (Magnesium Sulfate Premix) 20 gm in 500 mls @ 50 mls/hr IV .Q10H THU Magnesium Sulfate (Magnesium Sulfate Premix) 4 gm in 100 mls @ 300 mls/hr IV ONCE ONE Stop: 08/04/21 18:43 Discontinued Medications Hydrocodone Bitart/Acetaminophen (Hydrocodone-Acetaminophen 5-325 Mg Tablet) 1 tab PO ONCE ONE Stop: 08/04/21 14:15 Last Admin: 08/04/21 14:26 Dose: 1 tab Documented by: Betamethasone Acet/Betameth SodPhos (Betamethasone Susp 6 Mg/Ml 5 Ml) 12 mg IM ONCE ONE Stop: 08/04/21 18:13 Lactated Ringer's (Lactated Ringers) 1,000 mls @ 999 mls/hr IV .Q1H1M ONE Stop: 08/04/21 13:16 Last Infusion: 08/04/21 13:34 Dose: Infused Documented by: Terbutaline Sulfate (Terbutaline 1 Mg/Ml Inj) 0.25 mg SUBCUT ONCE ONE Stop: 08/04/21 16:27 Last Admin: 08/04/21 16:33 Dose: 0.25 mg Documented by: Allergies Sulfa (Sulfonamide Antibiotics) Allergy (Unknown, Verified 10/27/19 14:46) UNKNOWN sulfamethoxazole [From Bactrim] Allergy (Verified 04/11/20 09:42) ALGY-Hives trimethoprim [From Bactrim] Allergy (Verified 04/11/20 09:42) ALGY-Hives Home Medications vitamin with calcium no.72-iron 27 mg-folic acid 1 mg tablet ( Vitamins Plus Low Iron) 1 tab PO DAILY #90 tab 07/30/20 [Rx Confirmed 08/04/21] Discharge Plan Discharge Patient Disposition: Home Condition: Fair Prescriptions: Continued Vitamin Plus Low Iron 27 mg iron- 1 mg tablet 1 tab PO DAILY Qty: 90 2RF Discharge Orders: Transfer Out of Facility (Order); Ordered 08/04/21 Ordered By: Ashly Rasmussen Patient Instructions: Opioid Safety Transfer Attestations Time Spent in Transfer Care: greater than 30 min Quality Metrics Clinical Quality Measures [ No reported AMI, CVA or VTE this stay] Coding Level of Care Code Acute [employer]ated [employer] Specialist for g Fwd Diagnoses contractions O47.00 labor O60.00 Urinary tract infection N39.0
[2021-08-04] MEDS: magnesium sulfate premix 4 GM/100 ML PREMIX IV (18:58)
[2021-08-04] MEDS: dextrose 5%-lactated ringers 1,000 ML 125 ML IV (18:58)
[2021-08-04] MEDS: magnesium sulfate premix 20 GM/500 ML BAG IV (19:21)
--- NOTE | 2021-08-04 19:43 | PC.NURSE ---
EMS in room at 1939 to take over care of pt. pt transferred per EMS to [facility].
--- NOTE | 2021-08-04 20:01 | PC.NURSE ---
Dr Rasmussen here from 0 until 193 and reviewed tracing and went in to talk with pt multiple times. Verbal orders recieved and carried out.
--- NOTE | 2021-08-04 20:04 | PC.NURSE ---
report called to [facility] at 1900 and emergent transport call made to [facility] at 191
--- NOTE | 2021-08-04 20:05 | PC.NURSE ---
pt transfered to [facility]
== END 2021-08-04 19:43 | disposition short-term general hospital (02) | DRG 832 ==
LOC: OPOB 18:29 → OBGYN 18:31
PROVIDERS: Admitting Provider Family Medicine; PCP Family Medicine; Visit Provider Family Medicine
DX: O60.03 Preterm labor without delivery, third trimester (principal); O23.43 Unspecified infection of urinary tract in pregnancy, third trimester; N39.0 Urinary tract infection, site not specified; Z3A.28 28 weeks gestation of pregnancy; O32.1XX0 Maternal care for breech presentation, not applicable or unspecified
CPT/HCPCS: 12345; 51702; 59025; 76815; 80053; 80306; 81001; 85025; 87210; 87491; 87591; 96372; 99211; G0378; J0702; J3105; J3475

== ENCOUNTER 2021-08-07 19:41 | Outpatient (CLI) | payer MEDICAID, SELFPAY ==
[2021-08-07] VITALS (50 sets, daily range): BP systolic 87–117; BP diastolic 49–77; PULSE 77–125; RESP 16; TEMP 36.9–37; O2SAT 90–100; BMI 27.0
[2021-08-07] MEDS: lactated ringers 1,000 ML 999 ML IV (20:25)
[2021-08-07] MEDS: NIFEdipine 10 mg Capsule 30 MG PO (20:30)
[2021-08-07 21:02] LABS: Urine Appearance SL Hazy (CLEAR); Urine Color Yellow (Yellow); pH Urine 7 (5-7)
[2021-08-07 21:03] LABS: Add Urine Culture? No; Bacteria Urine TRACE /hpf; Bilirubin Urine Neg (Negative); Blood Urine Trace (Negative); Glucose Urine UA Norm (Normal); Ketones Urine Negative (Negative); Leukocyte Esterase Urine 1+ (Negative); Nitrate Urine Negative (Negative); Protein Urine Neg (Negative); RBC Urine 0-4 /hpf (0-2); Squamous Epithelial Cell Urine 0-4 /hpf (0-5); Urobilinogen Urine Norm (Negative); WBC Urine 15-25 /hpf (0-5)
[2021-08-07] MEDS: hyDROXYzine 25 mg Capsule 50 MG PO (21:15)
[2021-08-07] MEDS: HYDROcodone-acetaminophen 5-325 mg Tablet 1 TAB PO (21:16)
--- NOTE | 2021-08-10 13:39 | PC.NURSE ---
Urine micro report faxed to [facility] [place]note 2[place] in [place], after confirming that pt is a current patient with their office. [facility] confirmed that pt has an appointment scheduled tomorrow 08/11/21.
--- NOTE | 2021-08-10 13:41 | PC.NURSE ---
Attempted to notify patient of GBS bacteriuria micro report. Pt did not answer, message was left on voicemail asking pt to call to discuss lab results.
== END 2021-08-07 23:40 | disposition home or self-care (01) ==
LOC: OPOB 19:50 → OBGYN 19:51
PROVIDERS: PCP Family Medicine; Visit Provider Obstetrics & Gynecology
DX: O26.899 Other specified pregnancy related conditions, unspecified trimester (principal); Z3A.00 Weeks of gestation of pregnancy not specified; R10.9 Unspecified abdominal pain
CPT/HCPCS: 59025; 81001; 87086; 99211

== ENCOUNTER 2021-08-21 02:10 | Outpatient (CLI) | payer MEDICAID, SELFPAY ==
[2021-08-21] VITALS (15 sets, daily range): BP systolic 100–117; BP diastolic 63–69; PULSE 105–117; RESP 16; TEMP 36.6; O2SAT 93–100; BMI 27.3
[2021-08-21 03:21] LABS: Actim Prom Negative
[2021-08-21 04:07] LABS: Nitrazine Paper, PH Negative
== END 2021-08-21 03:39 | disposition home or self-care (01) ==
LOC: OPOB 02:11 → OBGYN 02:12
PROVIDERS: PCP Family Medicine; Visit Provider Obstetrics & Gynecology
DX: O26.899 Other specified pregnancy related conditions, unspecified trimester (principal); Z3A.00 Weeks of gestation of pregnancy not specified; N89.8 Other specified noninflammatory disorders of vagina
CPT/HCPCS: 59025; 83986; 84112; 99211

== ENCOUNTER 2021-08-23 00:14 | Outpatient (CLI) | payer MEDICAID, SELFPAY ==
[2021-08-23 00:24] VITALS: RESP 16; BMI 27.3
[2021-08-23 00:32] VITALS: BP 120/71; PULSE 112
--- NOTE | 2021-08-23 00:35 | PC.NURSE ---
This nurse entered pt's room to place pt on the monitor. This nurse asked the pt if her bleeding had increased since she called the OB department earlier. The pt stated yes, its bright red and you told me to come in if it was bright red. This nurse asked the pt is she was practicing pelvic rest as she has been instructed to do so by several different OB providers. She stated No, but it doesn't matter. This nurse asked the pt when she last had sexual intercourse. The pt stated yesterday. This nurse educated pt on importance of following physician's instructions due to possibility of delivery. The pt stated I know in a sarcastic tone. This nurse placed the pt on the monitor and told her we would monitor for a few minutes and this nurse would call the doctor. The pt stated 'I'm not even having contractions, it just hurts down there. This nurse stated for pt to follow what the physicians have instructed her to do and it would help with the pain and this nurse exited the pt's room.
== END 2021-08-23 01:05 | disposition home or self-care (01) ==
LOC: OPOB 00:22 → OBGYN 00:23
PROVIDERS: PCP Family Medicine; Visit Provider Family Medicine
DX: O46.90 Antepartum hemorrhage, unspecified, unspecified trimester (principal); Z3A.00 Weeks of gestation of pregnancy not specified
CPT/HCPCS: 59025; 99211

== ENCOUNTER 2021-09-16 16:58 | Outpatient (CLI) | payer MEDICAID, SELFPAY ==
[2021-09-16] VITALS (7 sets, daily range): BP systolic 91–108; BP diastolic 52–69; PULSE 89–107; RESP 16–17; TEMP 36.1–36.7; BMI 27.1
[2021-09-16 17:56] LABS: Nitrazine Paper, PH Negative
[2021-09-16] MEDS: ondansetron 2 mg/ML SDV 2 mL 4 MG IVP (18:28)
--- NOTE | 2021-09-16 18:34 | PC.NURSE ---
pt presented to L&D via ambulance with IV already in place. 20g in left AC with 1liter NS almost infused. remainder of NS infused here in triage.
--- NOTE | 2021-09-16 19:03 | USR_ITS ---
NOTE: Report was unsigned for reason: Order was edited. Original Signature date and time was: 09/16/212025 PROCEDURE INFORMATION: Exam: US , Limited Exam date and time: 09/16/2021 7:35 PM Age: 20 years old Clinical indication: Pain indication: Pre term contractions / banding abdominal pain; ; Additional info: With radha and placenta eval, severe abdominal pain TECHNIQUE: Imaging protocol: Real-time ultrasound of the maternal uterus with image documentation. Exam focused on the clinical indication. COMPARISON: US OB limited [id number] 08/04/2021 1:03 PM FINDINGS: Gestation: There is a single live intrauterine fetus. heart rate: cardiac activity measures 138 bpm. lie: The fetus is in a breech lie. Placenta: The placenta is fundal in location. Amniotic fluid: There is somewhat low amniotic fluid. RADHA is 9.7 cm, with median RADHA of 14 cm and 5th percentile of 7.9 cm at 35 weeks standard. RADHA on most recent ultrasound was 12 cm. BIOMETRY: Gestational age (AUA): Average ultrasound biometry is 34 weeks 5 days, versus provided clinical gestational age of 34 weeks 2 days. MATERNAL: Cervix: Maternal cervix is suboptimally visualized but appears closed, measuring about 3 cm in length. No obvious previa. Intraperitoneal space: Limited transabdominal OB ultrasound images was performed in conjunction with biophysical profile assessment. Other findings: Head circumference measures 32.3 cm, 36 weeks 3 days, approximately 71 percentile. Abdominal circumference measures 29.2 cm, 33 weeks 1 day, 23rd percentile. Femur length measures 6.7 cm, 34 weeks 3 days, 45th percentile. PROCEDURE INFORMATION: Exam: US Biophysical Profile Without Non-Stress Test Exam date and time: 09/16/2021 7:35 PM Age: 20 years old Clinical indication: Pain indication: Pre term contractions / banding abdominal pain; ; Additional info: With radha and placenta eval, severe abdominal pain TECHNIQUE: Imaging protocol: US biophysical profile without non-stress testing. COMPARISON: US OB >= 14 weeks fetus [id number] 03/21/2020 9:45 AM FINDINGS: BIOPHYSICAL PROFILE: breathing movement (BPP): 2 out of 2. body movement (BPP): 2 out of 2. tone (BPP): 2 out of 2. Amniotic fluid (BPP): 2 out of 2. MTDD US/US OB BPP wo NST [id number] IMPRESSION: 1. Single live intrauterine fetus in a breech lie with limited ultrasound biometry of 34 weeks 5 days versus provided clinical gestational age of 34 weeks 2 days. 2. Suboptimally visualized maternal cervix measuring about 3 cm in length. 3. Somewhat decreased amniotic fluid level as described above. 4. Please refer to biophysical profile report below. IMPRESSION: 1. Biophysical profile score is 8 out of 8. 2. Please also refer to limited Ob ultrasound report above. Oligohydramnios is noted.
== END 2021-09-16 20:13 | disposition home or self-care (01) ==
LOC: OPOB 17:02 → OBGYN 17:04
PROVIDERS: Absent Provider Family Medicine; PCP Family Medicine; Visit Provider Family Medicine
DX: O26.899 Other specified pregnancy related conditions, unspecified trimester (principal); Z3A.00 Weeks of gestation of pregnancy not specified; R11.2 Nausea with vomiting, unspecified
CPT/HCPCS: 59025; 76815; 76819; 83986; 96374; 99211; J2405

== ENCOUNTER 2021-10-10 23:00 | Outpatient (CLI) | payer MEDICAID, SELFPAY ==
[2021-10-10 22:52] VITALS: BMI 29.5
[2021-10-10 23:29] VITALS: BP 110/55; PULSE 101
[2021-10-10 23:30] VITALS: TEMP 36.3
[2021-10-11 00:14] LABS: Urine Appearance Clear (CLEAR); Urine Color Yellow (Yellow); pH Urine 8 (5-7)
[2021-10-11 00:15] LABS: Add Urine Culture? No; Amorphous Sediment Urine 2+ /hpf; Bacteria Urine TRACE /hpf; Bilirubin Urine Neg (Negative); Blood Urine Neg (Negative); Glucose Urine UA Norm (Normal); Ketones Urine 2+ (Negative); Leukocyte Esterase Urine 1+ (Negative); Nitrate Urine Negative (Negative); Protein Urine Neg (Negative); RBC Urine 0-4 /hpf (0-2); Sulfosalicylic Acid Urine Negative (Negative); Urobilinogen Urine 4 mg/dL (Negative)
[2021-10-11 00:16] VITALS: BP 119/66; PULSE 121
[2021-10-11 00:29] VITALS: BP 112/65; PULSE 90
== END 2021-10-11 00:53 | disposition home or self-care (01) ==
LOC: OPOB 23:01 → OBGYN 23:02
PROVIDERS: Absent Provider Obstetrics & Gynecology; PCP Family Medicine; Visit Provider Obstetrics & Gynecology
DX: O26.899 Other specified pregnancy related conditions, unspecified trimester (principal); Z3A.00 Weeks of gestation of pregnancy not specified; M54.9 Dorsalgia, unspecified; R10.9 Unspecified abdominal pain; N89.8 Other specified noninflammatory disorders of vagina
CPT/HCPCS: 59025; 81001; 99211

== ENCOUNTER 2021-12-03 23:50 | Emergency (ER) | payer MEDICAID, SELFPAY ==
[2021-12-03 23:54] VITALS: BP 99/68; PULSE 80; RESP 16; TEMP 36.5; O2SAT 95; BMI 24.3
--- NOTE | 2021-12-04 00:25 | CTR_ITS ---
PROCEDURE INFORMATION: Exam: CT Abdomen And Pelvis With Contrast Exam date and time: 12/04/2021 1:24 AM Age: 21 years old Clinical indication: Abdominal pain; Localized; Right lower quadrant (rlq); Prior surgery; Surgery type: C-sections; Additional info: Abd pain TECHNIQUE: Imaging protocol: Computed tomography of the abdomen and pelvis with contrast. Radiation optimization: All CT scans at this facility use at least one of these dose optimization techniques: automated exposure control; mA and/or kV adjustment per patient size (includes targeted exams where dose is matched to clinical indication); or iterative reconstruction. Contrast material: OMNI 350; Contrast volume: 80 ml; Contrast route: INTRAVENOUS (IV); COMPARISON: CT abdomen pelvis w con* [id number] 10/13/2018 1:26 PM RADIATION DOSE METRICS: Total DLP (mGy-cm): 376.9 FINDINGS: Liver: A 7 mm hypodense lesion is present in segment IV of the liver, which is likely benign. Gallbladder and bile ducts: Normal. No calcified stones. No ductal dilation. Pancreas: Normal. No ductal dilation. Spleen: No splenomegaly. Multiple splenules are present in the left upper quadrant. Adrenal glands: Normal. No mass. Kidneys and ureters: Normal. No hydronephrosis. Stomach and bowel: Unremarkable. No obstruction. No mucosal thickening. Appendix: The appendix is normal. Intraperitoneal space: Unremarkable. No free air. No significant fluid collection. Vasculature: Unremarkable. No abdominal aortic aneurysm. Lymph nodes: Unremarkable. No enlarged lymph nodes. Urinary bladder: Mild urinary bladder wall thickening is noted. Reproductive: Unremarkable as visualized. Bones/joints: Unremarkable. No acute fracture. Soft tissues: Mild scarring is present in the infraumbilical anterior abdominal wall. CT/CT abdomen pelvis w con* [id number] IMPRESSION: 1. Possible mild cystitis, correlate with urinalysis. 2. Normal appendix.
--- NOTE | 2021-12-04 00:26 | W.ED.ABDPA2 ---
HPI - Abdominal Pain General: Chief Complaint: Abdominal Pain Stated Complaint: abd/right side pain Time Seen by Provider: 12/03/21 23:52 Source: patient Mode of arrival: ambulatory Limitations: no limitations History of Present Illness: 21-year-old female states been having right lower quadrant and right-sided flank pain over the last day. States it started this morning is worsened throughout the day states pain is sharp in nature rates it a 7 out of 10 its much worse with movement improved with rest she has had some nausea denies vomiting denies any fever denies any dysuria had a recent 1 month ago. Associated Symptoms: Reports nausea; Denies chills, diarrhea, dysuria, fever(s) and vomiting Review of Systems Const: Denies: fever(s), chills, body aches or change in appetite Eyes: Denies: blurry vision or eye discomfort ENMT: Denies: throat pain or dental pain Card: Denies: chest pain Resp: Denies: dyspnea GI: Reports: abdominal pain and nausea; Denies: vomiting or diarrhea : Denies: dysuria Musc: Denies: neck pain or back pain Skin/Breast: Denies: rash Neuro: Denies: headache(s) Psych: Denies: depression [place]/Lymph: Denies: easy bruising All/Imm: Denies: urticaria PFSH ED PFSH: Medical History Bilateral ovarian cysts Hyperglycemia Recurrent cystitis Surgical History History of tonsillectomy and adenoidectomy Family History Other Diabetes Hypertension Social History Smoking and tobacco status: never smoked Alcohol intake: never Adopted: No Caregiver/support person: No Marital status: Single Physical Exam Const: COMMON NORMALS: no acute distress, patient oriented x3 and healthy appearing HENMT: COMMON NORMALS: normocephalic and atraumatic HEAD & SCALP: normocephalic and atraumatic Eye: COMMON NORMALS: Equal, round and reactive pupils present and EOMs intact bilaterally PUPIL: Yes Equal, round and reactive pupils present Neck/C-Spine: COMMON NORMALS: full ROM and supple Chest: COMMONS NORMALS: normal inspection of the chest and normal palpation of entire chest wall Resp: COMMON NORMALS: normal respiratory effort, No retractions, No use of accessory muscles and clear to auscultation bilaterally AUSCULTATION: clear to auscultation bilaterally Cardio: COMMON NORMALS: regular rate, regular rhythm and No murmurs present (Cardio) RATE: regular rate RHYTHM: regular rhythm GI: COMMON NORMALS: Normal to inspection, nondistended, normoactive bowel sounds present, Soft to palpation and no masses PALPATION: Yes Soft to palpation and Yes Tenderness to palpation present (GI) Details: RLQ Extremity: COMMON NORMALS: normal to inspection and full ROM Neuro: COMMON NORMALS: patient oriented x3, moves all extremities and no focal motor deficits Psych: COMMON NORMALS: mental status grossly normal, Normal thought process present and cooperative THOUGHT PROCESS: Normal thought process present Skin: COMMON NORMALS: no rashes or lesions noted and no wounds GENERAL SKIN EXAM: no rashes or lesions noted Course Vital Signs: Vital signs: Vital Signs Temperature 97.7 F 12/03/21 23:54 Pulse Rate 71 12/04/21 01:24 Respiratory Rate 19 H 12/04/21 02:47 Blood Pressure 117/58 12/04/21 02:47 Pulse Oximetry 100 12/04/21 02:47 Oxygen Delivery Me thod 12/04/21 02:47 MDM - Abdominal Pain Medical Decision Making Patient presents with abdominal pain her CT scan here shows no acute abnormalities lab work is normal as well she is stable for discharge she is to follow-up PCP and return if worsening she understands agrees to plan. Lab Data : 12/04/21 00:23 12/04/21 00:23 Labs/Radiology: Radiology Impressions Abdomen/Pelvis CT 12/04/21 00:25 IMPRESSION: 1. Possible mild cystitis, correlate with urinalysis. 2. Normal appendix. Laboratory Results WBC 7.6 10^3/uL (4.0-10.0) 12/04/21 00:23 RBC 4.14 10^6/uL (4.1-5.3) 12/04/21 00:23 Hgb 11.1 g/dL (11.5-15.3) L 12/04/21 00:23 Hct 37.8 % (37.0-47.0) 12/04/21: MCV 91.3 fl (81-99) 12/04/21: MCH 26.8 pg (28.0-34.0) L 12/04/21: MCHC 29.4 g/dL (30.0-36.0) L 12/04/21: RDW 14.4 % (12.1-15.1) 12/04/21: Plt Count 410 10^3/cmm (130-400) H 12/04/21: MPV 10.4 fL (7.4-10.4) 12/04/21: Neut % (Auto) 44.0 % 12/04/21: Lymph % (Auto) 43.0 % 12/04/21: [place] % (Auto) 8.4 % 12/04/21: Eos % (Auto) 3.4 % 12/04/21: Baso % (Auto) 1.1 % 12/04/21: Neut # (Auto) 3.34 10^3/uL (1.8-7.7) 12/04/21 00: Lymph # (Auto) 3.3 10^3/uL (0.8-4.8) 12/04/21: [place] # (Auto) 0.6 10^3/uL (0.2-0.9) 12/04/21: Eos # (Auto) 0.3 10^3/uL (0.0-0.8) 12/04/21: Baso # (Auto) 0.1 10^3/uL (0.0-0.1) 12/04/21: Nucleated RBC % (auto) 0 % 12/04/21: Nucleated RBCs # 0.0 /100WBC 12/04/21: Sodium 143 mmol/L (136-145) 12/04/21: Potassium 4.0 mmol/L (3.5-5.1) 12/04/21: Chloride 105 mmol/L (98-107) 12/04/21: Carbon Dioxide 28 mmol/L (22-29) 12/04/21 00: Anion Gap 14.0 (5-19) 12/04/21 00:23 BUN 11 mg/dL (6-20) 12/04/21 00: Creatinine 0.6 mg/dL (0.5-0.9) 12/04/21 00: GFR Calculation 123.9 mL/min (90-130) 12/04/21 00: Glucose 99 mg/dL (65-115) 12/04/21 00: Calculated Osmolality 295 mOsm/kg (285-295) 12/04/21: Calcium 9.1 mg/dL (8.5-10.5) 12/04/21: Total Bilirubin 0.3 mg/dL (0.15-1.2) 12/04/21: AST 21 U/L (0-32) 12/04/21: ALT 23 U/L (0-33) 12/04/21 00: Alkaline Phosphatase 116 IU/L (35-105) H 12/04/21 00: Total Protein 7.1 g/dL (6.6-8.7) 12/04/21: Albumin 4.3 g/dL (3.5-5.2) 12/04/21: Globulin 2.8 g/dL (1.3-4.6) 12/04/21: Lipase 16 U/L (13-60) 12/04/21 00:23 HCG, Qual Negative (Negative) 12/04/21 00: Urine Color Yellow (Yellow) 12/04/21 00:36 Urine Appearance Clear (CLEAR) 12/04/21 00:36 Urine pH 5 (5-7) 12/04/21 00:36 Ur Specific [place] 1.020 (1.005-1.030) 12/04/21 00:36 Urine Protein Neg (Negative) 12/04/21 00:36 Urine Glucose (UA) Norm (Normal) 12/04/21 00:36 Urine Ketones Negative (Negative) 12/04/21 00:36 Urine Blood 3+ (Negative) H 12/04/21 00:36 Urine Nitrate Negative (Negative) 12/04/21 00:36 Urine Bilirubin Neg (Negative) 12/04/21 00:36 Urine Urobilinogen Neg mg/dL (Negative) 12/04/21 00:36 Ur Leukocyte Esterase 2+ (Negative) H 12/04/21 00:36 Urine RBC 5-10 /hpf (0-2) H 12/04/21 00:36 Urine WBC 15-25 /hpf (0-5) H 12/04/21 00:36 Ur Squamous Epith Cells 15-25 /hpf (0-5) H 12/04/21 00:36 Amorphous Sediment Not Reportable 12/04/21 00:36 Urine Bacteria Trace /hpf (NONE) 12/04/21 00:36 Urine Mucus 1+ /hpf 12/04/21 00:36 Discharge Plan Discharge Patient Disposition: Home Clinical Impression: Abdominal pain Qualifiers: Abdominal location: generalized Qualified Code(s): R10.84 - Generalized abdominal pain Condition: Stable Prescriptions: New dicyclomine 20 mg tablet 20 mg PO TID PRN (Reason: abdominal pain) Qty: 20 0RF No Action ondansetron 4 mg tablet,disintegrating 4 mg PO Q8H Vitamins 1 tab PO DAILY Discharge Orders: Discharge ED (Routine); Ordered 12/04/21 Ordered By: Madeline Wilson Referrals: Augustina Lepe MD [Primary Care Provider] - 1-3 days Discharge Diet: Advance as tolerated Discharge Activity: Resume usual activity Patient Instructions: Abdominal Pain (ED) Coding Level of Care Code ED Clerical Supervisor for Chg Fwd Exam Comprehensive
[2021-12-04 00:33] LABS: Basophils # 0.1 10^3/uL (0.0-0.1); Basophils % 1.1 %; Eosinophils # 0.3 10^3/uL (0.0-0.8); Eosinophils % 3.4 %; Hematocrit 37.8 % (37.0-47.0); Hemoglobin 11.1 g/dL (11.5-15.3); Lymphocytes # 3.3 10^3/uL (0.8-4.8); Mean Corpuscular HGB Conc 29.4 g/dL (30.0-36.0); Mean Corpuscular Hemoglobin 26.8 pg (28.0-34.0); Mean Corpuscular Volume 91.3 fl (81-99); Mean Platelet Volume 10.4 fL (7.4-10.4); Monocytes # 0.6 10^3/uL (0.2-0.9); Monocytes % 8.4 %; Neutrophils # 3.34 10^3/uL (1.8-7.7); Nucleated Red Blood Cells % 0 %; Platelet Count 410 10^3/cmm (130-400); Red Blood Count 4.14 10^6/uL (4.1-5.3); Red Cell Distribution Width 14.4 % (12.1-15.1); White Blood Count 7.6 10^3/uL (4.0-10.0)
[2021-12-04 00:42] VITALS: RESP 19; O2SAT 100
[2021-12-04] MEDS: morphine 4 mg/mL SDV 1 mL IVP (00:42)
[2021-12-04] MEDS: ondansetron 2 mg/ML SDV 2 mL 4 MG IVP (00:42)
[2021-12-04] MEDS: sodium chloride 0.9% 1,000 ML 999 ML IV (00:42)
[2021-12-04 00:55] LABS: HCG, Serum Qual Negative (Negative)
[2021-12-04 00:59] VITALS: BP 108/52; O2SAT 99
[2021-12-04 01:00] LABS: Alanine Aminotransferase 23 U/L (0-33); Albumin Level 4.3 g/dL (3.5-5.2); Alkaline Phosphatase 116 IU/L (35-105); Aspartate Amino Transferase 21 U/L (0-32); Blood Urea Nitrogen 11 mg/dL (6-20); Calcium 9.1 mg/dL (8.5-10.5); Carbon Dioxide 28 mmol/L (22-29); Chloride 105 mmol/L (98-107); Globulin 2.8 g/dL (1.3-4.6); Glomerular Filtration Rate 123.9 mL/min (90-130); Glucose 99 mg/dL (65-115); Lipase 16 U/L (13-60); Osmolality Calculated 295 mOsm/kg (285-295); Sodium 143 mmol/L (136-145); Total Bilirubin 0.3 mg/dL (0.15-1.2); Total Protein 7.1 g/dL (6.6-8.7)
[2021-12-04 01:13] LABS: Add Urine Microscopic? YES; Bilirubin Urine Neg (Negative); Blood Urine 3+ (Negative); Glucose Urine UA Norm (Normal); Ketones Urine Negative (Negative); Leukocyte Esterase Urine 2+ (Negative); Nitrate Urine Negative (Negative); Protein Urine Neg (Negative); Urine Appearance Clear (CLEAR); Urine Color Yellow (Yellow); Urobilinogen Urine Neg (Negative); pH Urine 5 (5-7)
[2021-12-04 01:14] LABS: Add Urine Culture? No; Bacteria Urine TRACE /hpf; Mucus Urine 1+ /hpf; Squamous Epithelial Cell Urine 15-25 /hpf (0-5); WBC Urine 15-25 /hpf (0-5)
[2021-12-04 01:24] VITALS: BP 106/73; PULSE 71; RESP 19; O2SAT 98
[2021-12-04] MEDS: iohexol 350 mg/mL 100 mL Btl IV (01:26)
[2021-12-04 02:08] VITALS: BP 105/69; RESP 18; O2SAT 96
--- NOTE | 2021-12-04 02:32 | PC.NURSE ---
patient denies needs at this time, nad, room neat and tidy, call light in reach, vss, gcs 15, spouse at bedside, updated on plan of care, warm blanket given.
[2021-12-04 02:47] VITALS: BP 117/58; RESP 19; O2SAT 100
[2021-12-04 02:59] VITALS: RESP 18; O2SAT 100
== END 2021-12-04 03:00 | disposition home or self-care (01) ==
PROVIDERS: Emergency Provider Emergency Medicine; PCP Family Medicine
DX: R10.84 Generalized abdominal pain (principal)
CPT/HCPCS: 74177; 80053; 81001; 83690; 84703; 85025; 96361; 96374; 96375; 99285; J2270; J2405; J7030; Q9967

== ENCOUNTER 2022-01-27 14:46 | Emergency (ER) | payer MEDICAID, SELFPAY ==
[2022-01-27 14:53] VITALS: BP 103/67; PULSE 90; RESP 16; TEMP 36.6; O2SAT 96; BMI 22.6
--- NOTE | 2022-01-27 15:49 | ED_ITS ---
Documented by User: Osvaldo Stacy DO 01/29/22 17:27 HPI - Abdominal Pain General: Chief Complaint: Abdominal Pain Stated Complaint: abd pain Time Seen by Provider: 01/27/22 15:47 Source: patient Mode of arrival: ambulatory History of Present Illness: 21-year-old female who presents to the emergency room with complaint of right lower quadrant abdominal pain she said for last couple days with nausea and vomiting. Earnest diarrhea denies any hematemesis she has had some dysuria with it. She reports she has had a couple of positive home tests. She also had some mild spotting. MD elicited complaint: abdominal pain Onset (ago): day(s) Pain Consistency: constant Location: RLQ Severity: moderate Quality: cramping Radiation: none Exacerbating factors: eating Relieving factors: nothing Associated Symptoms: Reports bloating, change in stool character, GI cramping, diarrhea, dysuria, loose stools, nausea, poor appetite and vomiting; Denies anorexia, belching, change in bowel habits, chills, coffee ground emesis, constipation, dyspepsia, excessive flatus, fever(s), heartburn, hematochezia, hematuria, hematemesis, fecal incontinence, melena and syncope Related Data: Date of Last Menstrual Period: 12/03/21 Review of Systems Const: Denies: fever(s) or chills ENMT: Denies: throat pain, ear or mastoid pain, nasal discharge or nasal congestion Card: Denies: chest pain, palpitations or syncope Resp: Denies: dyspnea, productive cough or non-productive cough GI: Reports: abdominal pain, nausea, vomiting, diarrhea, bloating, GI cramping and change in stool character; Denies: hematemesis, coffee ground emesis, heartburn, constipation, belching, excessive flatus, fecal incontinence, change in bowel habits, hematochezia or melena : Reports: dysuria; Denies: flank pain, difficulty voiding, urinary frequency, urinary urgency or hematuria Musc: Denies: neck pain or back pain Skin/Breast: Denies: rash or pruritus PFS ED PFSH: Medical History Bilateral ovarian cysts Hyperglycemia Recurrent cystitis Surgical History History of tonsillectomy and adenoidectomy Family History Other Diabetes Hypertension Social History Smoking and tobacco status: never smoked Alcohol intake: never Adopted: No Caregiver/support person: No Marital status: Single Female Reproductive History: Date of last menstrual period: 12/03/21 Physical Exam Const: COMMON NORMALS: no acute distress GENERAL APPEARANCE: cooperative and comfortable ORIENTATION/CONSCIOUSNESS: Yes awake, Yes oriented to person, Yes oriented to place and Yes oriented to time HENMT: COMMON NORMALS: normocephalic, atraumatic and hearing grossly normal bilaterally HEAD & SCALP: normocephalic and atraumatic Resp: COMMON NORMALS: normal respiratory effort, No retractions, No use of accessory muscles and clear to auscultation bilaterally AUSCULTATION: clear to auscultation bilaterally Cardio: COMMON NORMALS: regular rate, regular rhythm and No murmurs present (Cardio) RATE: regular rate RHYTHM: regular rhythm GI: COMMON NORMALS: negative for No hepatosplenomegaly present PALPATION: Yes Tenderness to palpation present (GI) Details: RLQ, No Guarding due to palpation present (GI) and No No hepatosplenomegaly present Extremity: COMMON NORMALS: normal to inspection, capillary refill normal, no clubbing, cyanosis or edema, no calf tenderness and no pedal edema Neuro: SENSORIUM/ORIENTATION: Yes oriented to person, Yes oriented to place and Yes oriented to time Skin: COMMON NORMALS: no rashes or lesions noted GENERAL SKIN EXAM: no rashes or lesions noted Course Vital Signs: Vital signs: Vital Signs Temperature 97.8 F 01/27/22 14:53 Pulse Rate 75 01/27/22 18:31 Respiratory Rate 21 H 01/27/22 18:31 Blood Pressure 101/66 01/27/22 18:31 Pulse Oximetry 95 01/27/22 18:31 Oxygen Delivery Me thod 01/27/22 18:31 MDM - Abdominal Pain Medical Decision Making Care signed out to Dr. Moura at change of shift. See final notes for diagnosis and disposition. 21-year-old female checked out to me by Dr. Stacy. She has been having right lower quadrant pain. She is afebrile. Her CBC is normal. Her BMP is normal. No elevation in her liver enzymes. Her lipase is normal. She has some hematuria on urinalysis, but notes that she has been spotting. CT of the belly reveals no acute findings as a cause for her right lower quadrant pain. She could have passed a stone. She does have a history of ureteral stents for kidney stones. Medical Records I reviewed the patient's medical records. Lab Data I reviewed the patient's lab results. : 01/27/22 15:55 01/27/22 15:55 Labs/Radiology: Radiology Impressions Abdomen/Pelvis CT 01/27/22 16:26 IMPRESSION: No acute findings. Laboratory Results WBC 5.8 10^3/uL (4.0-10.0) 01/27/22 15:55 RBC 4.49 10^6/uL (4.1-5.3) 01/27/22 15:55 Hgb 11.5 g/dL (11.5-15.3) 01/27/22 15:55 Hct 39.4 % (37.0-47.0) 01/27/22 15:55 MCV 87.8 fl (81-99) 01/27/22 15:55 MCH 25.6 pg (28.0-34.0) L 01/27/22 15:55 MCHC 29.2 g/dL (30.0-36.0) L 01/27/22 15:55 RDW 14.6 % (12.1-15.1) 01/27/22 15:55 Plt Count 342 10^3/cmm (130-400) 01/27/22 15:55 MPV 10.0 fL (7.4-10.4) 01/27/22 15:55 Neut % (Auto) 62.9 % 01/27/22 15:55 Lymph % (Auto) 25.9 % 01/27/22 15:55 [place] % (Auto) 8.6 % 01/27/22 15:55 Eos % (Auto) 1.4 % 01/27/22 15:55 Baso % (Auto) 1.0 % 01/27/22 15:55 Neut # (Auto) 3.64 10^3/uL (1.8-7.7) 01/27/22 15:55 Lymph # (Auto) 1.5 10^3/uL (0.8-4.8) 01/27/22 15:55 [place] # (Auto) 0.5 10^3/uL (0.2-0.9) 01/27/22 15:55 Eos # (Auto) 0.1 10^3/uL (0.0-0.8) 01/27/22 15:55 Baso # (Auto) 0.1 10^3/uL (0.0-0.1) 01/27/22 15:55 Nucleated RBC % (auto) 0 % 01/27/22 15:55 Nucleated RBCs # 0.0 /100WBC 01/27/22 15:55 Sodium 137 mmol/L (136-145) 01/27/22 15:55 Potassium 3.8 mmol/L (3.5-5.1) 01/27/22 15:55 Chloride 101 mmol/L (98-107) 01/27/22 15:55 Carbon Dioxide 24 mmol/L (22-29) 01/27/22 15:55 Anion Gap 15.8 (5-19) 01/27/22 15:55 BUN 15 mg/dL (6-20) 01/27/22 15:55 Creatinine 0.5 mg/dL (0.5-0.9) 01/27/22 15:55 GFR Calculation 152.9 mL/min (90-130) H 01/27/22 15:55 Glucose 91 mg/dL (65-115) 01/27/22 15:55 Calculated Osmolality 284 mOsm/kg (285-295) L 01/27/22 15:55 Calcium 9.2 mg/dL (8.5-10.5) 01/27/22 15:55 Total Bilirubin 0.4 mg/dL (0.15-1.2) 01/27/22 15:55 AST 21 U/L (0-32) 01/27/22 15:55 ALT 24 U/L (0-33) 01/27/22 15:55 Alkaline Phosphatase 112 U/L (35-105) H 01/27/22 15:55 Total Protein 7.7 g/dL (6.6-8.7) 01/27/22 15:55 Albumin 4.6 g/dL (3.5-5.2) 01/27/22 15:55 Globulin 3.1 g/dL (1.3-4.6) 01/27/22 15:55 Lipase 26 U/L (13-60) 01/27/22 15:55 Ser , Semi-Qnt 0.50 mIU/mL 01/27/22 15:55 Urine Color Yellow (Yellow) 01/27/22 15:05 Urine Appearance Clear (CLEAR) 01/27/22 15:05 Urine pH 5 (5-7) 01/27/22 15:05 Ur Specific [place] 1.025 (1.005-1.030) 01/27/22 15:05 Urine Protein Neg (Negative) 01/27/22 15:05 Urine Glucose (UA) Norm (Normal) 01/27/22 15:05 Urine Ketones Negative (Negative) 01/27/22 15:05 Urine Blood Neg (Negative) 01/27/22 15:05 Urine Nitrate Negative (Negative) 01/27/22 15:05 Urine Bilirubin Neg (Negative) 01/27/22 15:05 Urine Urobilinogen Neg mg/dL (Negative) 01/27/22 15:05 Ur Leukocyte Esterase 1+ (Negative) H 01/27/22 15:05 Urine RBC 10-15 /hpf (0-2) H 01/27/22 15:05 Urine WBC None /hpf (0-5) 01/27/22 15:05 Ur Squamous Epith Cells 15-25 /hpf (0-5) H 01/27/22 15:05 Amorphous Sediment Not Reportable 01/27/22 15:05 Urine Bacteria 1+ /hpf (NONE) H 01/27/22 15:05 Discharge Plan Discharge Patient Disposition: Home Clinical Impression: Abdominal pain Qualifiers: Abdominal location: right lower quadrant Qualified Code(s): R10.31 - Right lower quadrant pain Condition: Stable Prescriptions: New ketorolac 10 mg tablet 10 mg PO TID PRN (Reason: pain) Qty: 10 0RF Continued ondansetron 4 mg tablet,disintegrating 4 mg PO Q8H Qty: 10 0RF No Action Vitamins 1 tab PO DAILY dicyclomine 20 mg tablet 20 mg PO TID PRN (Reason: abdominal pain) Qty: 20 0RF Discharge Orders: Discharge ED (Routine); Ordered 01/27/22 Ordered By: Lee Moura Patient Instructions: Abdominal Pain (ED), Opioid Safety, Pain Management Activity Restrictions/Additional Instructions: Return for fever greater than 100, worsening pain despite treatment, worsening vaginal bleeding, soaking a pad per hour for more than 3 hours. Return for vomiting liquids or medications, or any other concerning symptoms. follow-up with your doctor. Coding Level of Care Code ED Mobile Development Manager for Chg Fwd Exam Detailed Documented by User: Lee Moura DO 01/28/22 03:48 HPI - Abdominal Pain General: Chief Complaint: Abdominal Pain Stated Complaint: abd pain Time Seen by Provider: 01/27/22 15:47 History of Present Illness: 21-year-old female who presents to the emergency room with complaint of right lower quadrant abdominal pain she said for last couple days with nausea and vomiting. Denies diarrhea denies any hematemesis she has had some dysuria with it. She reports she has had a couple of positive home tests. She also had some mild spotting. [facility] ED PFSH: Medical History Bilateral ovarian cysts Hyperglycemia Recurrent cystitis Surgical History History of tonsillectomy and adenoidectomy Family History Other Diabetes Hypertension Social History Smoking and tobacco status: never smoked Alcohol intake: never Adopted: No Caregiver/support person: No Marital status: Single Course Vital Signs: Vital signs: Vital Signs Temperature 97.8 F 01/27/22 14:53 Pulse Rate 75 01/27/22 18:31 Respiratory Rate 21 H 01/27/22 18:31 Blood Pressure 101/66 01/27/22 18:31 Pulse Oximetry 95 01/27/22 18:31 Oxygen Delivery Me thod 01/27/22 18:31 MDM - Abdominal Pain Medical Decision Making 21-year-old female checked out to me by Dr. Stacy. She has been having right lower quadrant pain. She is afebrile. Her CBC is normal. Her BMP is normal. No elevation in her liver enzymes. Her lipase is normal. She has some hematuria on urinalysis, but notes that she has been spotting. CT of the belly reveals no acute findings as a cause for her right lower quadrant pain. She could have passed a stone. She does have a history of ureteral stents for kidne y stones. Lab Data : 01/27/22 15:55 01/27/22 15:55 Labs/Radiology: Radiology Impressions Abdomen/Pelvis CT 01/27/22 16:26
[2022-01-27 16:02] LABS: Basophils # 0.1 10^3/uL (0.0-0.1); Eosinophils # 0.1 10^3/uL (0.0-0.8); Eosinophils % 1.4 %; Hematocrit 39.4 % (37.0-47.0); Hemoglobin 11.5 g/dL (11.5-15.3); Lymphocytes # 1.5 10^3/uL (0.8-4.8); Lymphocytes % 25.9 %; Mean Corpuscular HGB Conc 29.2 g/dL (30.0-36.0); Mean Corpuscular Hemoglobin 25.6 pg (28.0-34.0); Mean Corpuscular Volume 87.8 fl (81-99); Monocytes # 0.5 10^3/uL (0.2-0.9); Monocytes % 8.6 %; Neutrophils # 3.64 10^3/uL (1.8-7.7); Neutrophils % 62.9 %; Nucleated Red Blood Cells % 0 %; Platelet Count 342 10^3/cmm (130-400); Red Blood Count 4.49 10^6/uL (4.1-5.3); Red Cell Distribution Width 14.6 % (12.1-15.1); White Blood Count 5.8 10^3/uL (4.0-10.0)
[2022-01-27 16:24] LABS: Bilirubin Urine Neg (Negative); Blood Urine Neg (Negative); Glucose Urine UA Norm (Normal); Ketones Urine Negative (Negative); Leukocyte Esterase Urine 1+ (Negative); Nitrate Urine Negative (Negative); Protein Urine Neg (Negative); Specific Gravity, Urine 1.025 (1.005-1.030); Urine Appearance Clear (CLEAR); Urine Color Yellow (Yellow); Urobilinogen Urine Neg (Negative); pH Urine 5 (5-7)
[2022-01-27 16:24] LABS: Alanine Aminotransferase 24 U/L (0-33); Albumin Level 4.6 g/dL (3.5-5.2); Alkaline Phosphatase 112 U/L (35-105); Anion Gap 15.8 (5-19); Aspartate Amino Transferase 21 U/L (0-32); Blood Urea Nitrogen 15 mg/dL (6-20); Calcium 9.2 mg/dL (8.5-10.5); Carbon Dioxide 24 mmol/L (22-29); Chloride 101 mmol/L (98-107); Globulin 3.1 g/dL (1.3-4.6); Glomerular Filtration Rate 152.9 mL/min (90-130); Glucose 91 mg/dL (65-115); Lipase 26 U/L (13-60); Osmolality Calculated 284 mOsm/kg (285-295); Potassium 3.8 mmol/L (3.5-5.1); Sodium 137 mmol/L (136-145); Total Bilirubin 0.4 mg/dL (0.15-1.2); Total Protein 7.7 g/dL (6.6-8.7)
--- NOTE | 2022-01-27 16:26 | CTR_ITS ---
PROCEDURE INFORMATION: Exam: CT Abdomen And Pelvis Without Contrast Exam date and time: 01/27/2022 4:55 PM Age: 21 years old Clinical indication: Abdominal pain; Generalized TECHNIQUE: Imaging protocol: Computed tomography of the abdomen and pelvis without contrast. Radiation optimization: All CT scans at this facility use at least one of these dose optimization techniques: automated exposure control; mA and/or kV adjustment per patient size (includes targeted exams where dose is matched to clinical indication); or iterative reconstruction. COMPARISON: CT abdomen pelvis w con* [id number] 12/04/2021 1:24 AM RADIATION DOSE METRICS: Total DLP (mGy-cm): 356.25 FINDINGS: Liver: Normal. No mass. Gallbladder and bile ducts: Normal. No calcified stones. No ductal dilation. Pancreas: Normal. No ductal dilation. Spleen: Normal. No splenomegaly. Adrenal glands: Normal. No mass. Kidneys and ureters: No renal stones. No hydronephrosis. Stomach and bowel: Unremarkable. No obstruction. No mucosal thickening. Appendix: No evidence of appendicitis. Intraperitoneal space: Unremarkable. No free air. No significant fluid collection. Vasculature: Unremarkable. No abdominal aortic aneurysm. Lymph nodes: Unremarkable. No enlarged lymph nodes. Urinary bladder: Unremarkable as visualized. Reproductive: Unremarkable as visualized. Bones/joints: No acute fracture. Soft tissues: Unremarkable. CT/CT abdomen pelvis con [id number] IMPRESSION: No acute findings.
[2022-01-27 16:35] LABS: Add Urine Microscopic? YES
[2022-01-27 16:36] LABS: Add Urine Culture? No; Bacteria Urine 1+ /hpf; Squamous Epithelial Cell Urine 15-25 /hpf (0-5)
[2022-01-27] MEDS: sodium chloride 0.9% 1,000 ML 999 ML IV (17:15)
[2022-01-27] MEDS: ondansetron 2 mg/ML SDV 2 mL 4 MG IVP (17:15)
[2022-01-27 18:31] VITALS: BP 101/66; PULSE 75; RESP 21; O2SAT 95
== END 2022-01-27 19:05 | disposition home or self-care (01) ==
PROVIDERS: Family Medicine; Physician Assistant; Emergency Provider Emergency Medicine
DX: R10.31 Right lower quadrant pain (principal)
CPT/HCPCS: 74176; 80053; 81001; 83690; 84702; 85025; 96374; 99285; J2405; J7030

== ENCOUNTER 2022-05-27 22:17 | Emergency (ER) | payer MEDICAID, SELFPAY ==
[2022-05-27 22:21] VITALS: BP 100/49; PULSE 88; RESP 14; TEMP 36.6; O2SAT 95; BMI 19.4
--- NOTE | 2022-05-28 00:39 | ED_ITS ---
HPI - Dental/Oral General: Chief complaint: Dental/Oral Stated complaint: dental pain Time Seen by Provider: 05/28/22 00:38 History of Present Illness: 21-year-old female comes in today with complaints of dental pain. Patient has a premolar to the right lower jaw that has cracked and loss of side. Patient has increased pain and discomfort to the tooth. Patient states that injury occurred 2 to 3 days ago. Patient reports that she is 12 to 13 weeks . Review of Systems ENMT: Reports: dental pain PFSH ED PFSH: Medical History Bilateral ovarian cysts Hyperglycemia Recurrent cystitis Surgical History History of tonsillectomy and adenoidectomy Family History Other Diabetes Hypertension Social History Smoking and tobacco status: never smoked Alcohol intake: never Adopted: No Caregiver/support person: No Marital status: Single Female Reproductive History: Date of last menstrual period: 12/03/21 Physical Exam Const: COMMON NORMALS: alert HENMT: COMMON NORMALS: normocephalic and Normal external nose present HEAD & SCALP: normocephalic NOSE: Normal external nose present MOUTH: Normal oral and palatal mucosa present TEETH & GINGIVA: Yes other (Right lower premolar has lost the inner third of the tooth.) Chest: COMMONS NORMALS: normal inspection of the chest Resp: COMMON NORMALS: normal respiratory effort and clear to auscultation bilaterally AUSCULTATION: clear to auscultation bilaterally Cardio: COMMON NORMALS: regular rate and regular rhythm RATE: regular rate RHYTHM: regular rhythm Extremity: COMMON NORMALS: normal to inspection Neuro: SENSORIUM/ORIENTATION: Yes alert Skin: COMMON NORMALS: turgor normal GENERAL SKIN EXAM: turgor normal Course Vital Signs: Vital signs: Vital Signs Temperature 97.8 F 05/27/22 22:21 Pulse Rate 88 05/27/22 22:21 Respiratory Rate 14 05/27/22 22:21 Blood Pressure 100/49 05/27/22 22:21 Pulse Oximetry 95 05/27/22 22:21 Oxygen Delivery Me thod 05/27/22 22:21 MDM - Dental/Oral Medical Decision Making 21-year-old female comes in today with right lower jaw pain. On exam the right lower second premolar has lost the medial third of the tooth. No signs of significant swelling or redness is noted. Posterior pharynx is pink and moist. Skin is warm and dry. Differential diagnosis includes but not limited to dental caries, dental pain, dental abscess. We will cover patient with antibiotics and recommend follow-up with dentist in the morning for further management. Patient was recommended to use good oral care. Patient reported understanding and agreed to plan. Discharge Plan Discharge Patient Disposition: Home Clinical Impression: Dental caries Condition: Stable Prescriptions: New amoxicillin-pot clavulanate 875-125 mg tablet 1 tab PO BID Qty: 13 0RF No Action Vitamins 1 tab PO DAILY ofloxacin 0.3 % drops 10 drp otic (ear) DAILY 7 Days Qty: 10 0RF Discharge Orders: Discharge ED (Routine); Ordered 05/28/22 Ordered By: Sharath Mascorro Discharge Diet: Usual diet Discharge Activity: Increase activity as tolerated Patient Instructions: Toothache (ED) Activity Restrictions/Additional Instructions: Good oral care, use acetaminophen as needed for pain. Take antibiotic 1 tablet twice a day for the next 7 days. Follow-up with dentist office in the morning for further evaluation and treatment. Return to ED for new concerns. Coding Level of Care Code ED Allergist/Immunologist Physician for Anabel Martin
[2022-05-28] MEDS: HYDROcodone-acetaminophen 5-325 mg Tablet 1 TAB PO (00:59)
[2022-05-28] MEDS: amoxicillin-clav 875-125 mg Tablet 1 TAB PO (01:00)
[2022-05-28 01:04] VITALS: BP 108/76; PULSE 72; RESP 18; O2SAT 97
== END 2022-05-28 01:05 | disposition home or self-care (01) ==
PROVIDERS: Emergency Provider Nurse Practitioner Family
DX: K02.9 Dental caries, unspecified (principal)
CPT/HCPCS: 99283

== ENCOUNTER → 2022-07-25 16:03 | Outpatient (BNVA) | payer MEDICAID, SELFPAY | PROVIDERS: Visit Provider Nurse Practitioner Family | DX: R30.0 Dysuria (principal) | CPT/HCPCS: 81000 ==

== ENCOUNTER 2022-09-16 21:35 | Outpatient (CLI) | payer MEDICAID, SELFPAY ==
[2022-09-16] VITALS (10 sets, daily range): BP systolic 98–114; BP diastolic 63–72; PULSE 83–107; RESP 15; TEMP 36.7; BMI 24.5
--- NOTE | 2022-09-16 22:24 | USR_ITS ---
PROCEDURE INFORMATION: Exam: US , Limited Exam date and time: 09/16/2022 10:46 PM Age: 21 years old Clinical indication: complicated by abdominal or pelvic pain; Lower; Third trimester (=28 weeks 0 days); Gestational age or lmp: 26 weeks; ; Additional info: Possible placenta previa LABS AND CLINICAL REPORTS: Last menstrual period start date: 02/21/2022 Gestational age (Established): 29 w 4 d Estimated due date (Established): 11/28/2022 TECHNIQUE: Imaging protocol: Real-time ultrasound of the maternal uterus with image documentation. Exam focused on the clinical indication. COMPARISON: US OB lmt w/ BPP wo NST 09/16/2021 7:35 PM FINDINGS: Gestation: Single live intrauterine gestation. heart rate: 147 bpm presentation: Cephalic presentation. Placenta: Anterior placenta. The inferior placental tip is in very close proximity to the internal cervical os. Suboptimal evaluation on transabdominal imaging. Amniotic fluid index: RADHA is 17.1 cm. US/US OB limited [id number] IMPRESSION: Nondiagnostic assessment of placental tip related to the cervix. Recommend transvaginal imaging. The possibilities include complete previa, marginal previa, or low lying placenta.
[2022-09-16 22:29] LABS: Add Urine Microscopic? NO; Charge for UA Resulting for Rev
[2022-09-16 22:53] LABS: Bilirubin Urine Neg (Negative); Blood Urine Neg (Negative); Glucose Urine UA Norm (Normal); Ketones Urine 2+ (Negative); Leukocyte Esterase Urine Negative (Negative); Nitrate Urine Negative (Negative); Protein Urine Neg (Negative); Urine Appearance Clear (CLEAR); Urine Color Colorless (Yellow); Urobilinogen Urine Norm (Negative); pH Urine 7 (5-7)
[2022-09-16 23:01] LABS: Amphetamines Screen Urine Negative (Negative); Barbiturates Screen Urine Negative (Negative); Benzodiazepines Screen Urine Negative (Negative); Cocaine Screen Urine Negative (Negative); Opiate Screen Urine Negative (Negative); PCP Screen Urine Negative (Negative); THC Screen Urine Negative (Negative)
[2022-09-16] MEDS: acetaminophen 500 mg Tablet 1000 MG PO (23:59)
[2022-09-17 01:16] VITALS: BP 106/72; PULSE 83; RESP 15
== END 2022-09-17 00:14 | disposition home or self-care (01) ==
LOC: OPOB 21:43 → OBGYN 21:45
PROVIDERS: Visit Provider Family Medicine
DX: O26.899 Other specified pregnancy related conditions, unspecified trimester (principal); R25.2 Cramp and spasm; Z3A.00 Weeks of gestation of pregnancy not specified
CPT/HCPCS: 76815; 80306; 81003; 99211

== ENCOUNTER 2022-10-23 07:00 | Observation (INO) | payer MEDICAID, SELFPAY ==
[2022-10-22] VITALS (16 sets, daily range): BP systolic 92–133; BP diastolic 51–100; PULSE 60–111; BMI 26.0
--- NOTE | 2022-10-22 12:57 | US_ITS ---
WS: [id number] ULTRASOUND OB FOCUSED HISTORY: fall, possible placenta previa COMPARISON: 09/16/2022. Single intrauterine gestation is identified. Fetus in vertex position. Cervix is partially obscured d ue to the late gestational age. heart rate at 153 BPM. Placenta is anterior and grade 1. head is positioned against the cervix. There is no placental tissue identified. US/US OB limited [id number] IMPRESSION: 1. No placenta previa is identified on this examination. Detail is limited due to the late gestational age but the head is positioned at the cervical o s. Cannot confirm placenta previa. 2. Placenta is anterior.
--- NOTE | 2022-10-22 13:02 | US_ITS ---
WS: [id number] Limited obstetrical ultrasound. HISTORY: Possible placenta previa. COMPARISON: 09/16/2022. Transvaginal imaging is submitted. The cervix is closed at 3.5 cm in length. There is no soft tissue covering the cervical os. Although limited evaluation there is no placenta previa. The distal extent of the placenta is not evident. US/US OB transvaginal [id number] IMPRESSION: By transvaginal imaging there does not appear to be a complete placenta previa.
[2022-10-22] MEDS: sodium chloride 0.9% 1,000 ML 999 ML IV (14:52)
--- NOTE | 2022-10-22 15:42 | US_ITS ---
WS: [id number] ULTRASOUND OB FOCUSED HISTORY: Evaluate for signs of new abruption COMPARISON: Study earlier the same day. Single intrauterine gestation is identified with the head deep within the maternal pelvis. Feta l head appears lower than on the prior study. The cervix is obscured by the head. Placenta is a nterior. No previa is identified. There is no abruption. The placenta appears normal. heart rate at 153 BPM. US/US OB limited [id number] IMPRESSION: 1. Anterior placenta. No abruption or previa is identified. 2. head is deep within the maternal pelvis. Cervix is difficult to visua lize.
--- NOTE | 2022-10-22 16:03 | PM.OPHPUD ---
Labor & Delivery H&P Update Date of Procedure: October 22, 2022 Date H&P Performed: 10/17/22 H&P update information: I have reviewed H&P completed within last 30 days, I have examined patient prior to procedure and Changes to prior documentation as noted here Changes to previous documentation: The patient presents with a fall and unknown, but unlikely trauma to abdomen. Initially, patient was not having too much pain, but then had intense pain. Another ultrasound was ordered to look for new uterine rupture. The patient has a history of previous . Admission Diagnosis: @ 34w5d, previous times one, fall with new onset abdominal pain. diagnosed with uti. Other information: Will treat for uti and observe overnight to manage pain.
[2022-10-22 16:22] LABS: Amphetamines Screen Urine Negative (Negative); Barbiturates Screen Urine Negative (Negative); Benzodiazepines Screen Urine Negative (Negative); Cocaine Screen Urine Negative (Negative); Opiate Screen Urine Negative (Negative); PCP Screen Urine Negative (Negative); THC Screen Urine Negative (Negative)
[2022-10-22 16:23] LABS: Bilirubin Urine Neg (Negative); Blood Urine 2+ (Negative); Glucose Urine UA Norm (Normal); Ketones Urine 1+ (Negative); Nitrate Urine Negative (Negative); Protein Urine Trace (Negative); Specific Gravity, Urine 1.015 (1.005-1.030); Urine Appearance Hazy (CLEAR); Urine Color Yellow (Yellow); Urobilinogen Urine 1 mg/dL (Negative); pH Urine 6 (5-7)
[2022-10-22 16:24] LABS: Add Urine Culture? Yes; Bacteria Urine 2+ /hpf; Leukocyte Esterase Urine 2+ (Negative); WBC Urine 80-100 /hpf (0-5)
[2022-10-22] MEDS: phenazopyridine 100 mg Tablet 200 MG PO (16:55)
[2022-10-22] MEDS: HYDROcodone-acetaminophen 5-325 mg Tablet 1 TAB PO ×2 (16:55→21:09)
[2022-10-22] MEDS: lactated ringers 1,000 ML 125 ML IV ×2 (16:57→22:01)
[2022-10-22] MEDS: terbutaline 1 mg/mL INJ 0.25 MG SUBCUT (17:26)
[2022-10-22] MEDS: cefTRIAXone 2,000 MG in sodium chloride 0.9% (plus) 50 ML 100 MG IV (17:28)
[2022-10-22] MEDS: NIFEdipine 10 mg Capsule PO ×2 (18:31→23:47)
[2022-10-22] MEDS: ondansetron 4 MG Tablet PO (21:09)
[2022-10-23] VITALS (28 sets, daily range): BP systolic 88–117; BP diastolic 51–82; PULSE 70–114; RESP 16; TEMP 35.9–36.2
[2022-10-23] MEDS: HYDROcodone-acetaminophen 5-325 mg Tablet 1 TAB PO ×2 (01:03→05:48)
[2022-10-23] MEDS: NIFEdipine 10 mg Capsule PO ×2 (05:48→11:10)
[2022-10-23] MEDS: lactated ringers 1,000 ML 125 ML IV (06:29)
--- NOTE | 2022-10-23 08:51 | PC.NURSE ---
0730 cardona cath removed without difficulty, pt tolerated it well.
[2022-10-23] MEDS: acetaminophen 500 mg Tablet 1000 MG PO (11:10)
[2022-10-23] MEDS: phenazopyridine 100 mg Tablet 200 MG PO (11:11)
[2022-10-23] MEDS: cefTRIAXone 2,000 MG in sodium chloride 0.9% (plus) 50 ML 100 MG IV (12:52)
== END 2022-10-23 13:50 | disposition home or self-care (01) ==
LOC: OPOB 11:00 → OBGYN 11:00
PROVIDERS: Obstetrics & Gynecology; Admitting Provider Obstetrics & Gynecology; Visit Provider Obstetrics & Gynecology
DX: O23.43 Unspecified infection of urinary tract in pregnancy, third trimester (principal); N39.0 Urinary tract infection, site not specified; Z3A.34 34 weeks gestation of pregnancy
CPT/HCPCS: 59025; 76815; 76817; 80306; 81003; 87086; 96372; 99211; G0378; J0696; J3105; J7030; J7120; Q0162

== ENCOUNTER 2022-10-23 21:50 | Outpatient (CLI) | payer MEDICAID, SELFPAY ==
[2022-10-23] VITALS (9 sets, daily range): BP systolic 106–125; BP diastolic 56–87; PULSE 75–108; RESP 16; TEMP 36.2; BMI 26.0
[2022-10-23] MEDS: acetaminophen 500 mg Tablet 1000 MG PO (22:38)
[2022-10-23] MEDS: phenazopyridine 100 mg Tablet 200 MG PO (22:39)
[2022-10-23] MEDS: sodium chloride 0.9% 1,000 ML 999 ML IV (22:53)
[2022-10-23] MEDS: cefTRIAXone 2,000 MG in sodium chloride 0.9% (plus) 50 ML 100 MG IV (22:55)
[2022-10-24 00:44] VITALS: BP 107/58; PULSE 101; TEMP 35.9
--- NOTE | 2022-11-12 16:35 | P.PN_ITS ---
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 SA3 EDC ? November 28, 2022 At 34 w 6d Admitted yesterday with lower abdominal and back pain Found to have complicated UTI, possible nephrolithiasis Treated with Rocephin IV x one dose and pain medications Kept overnight for observation No fever, nausea, vomiting Patient rested overnight States pain much better Tolerating PO + mild lower abdominal pain + active movements POBHx: x 1c-section x one,? Breech, 630-22, [place], 7 lbs 4 oz, male Labor: Station: -3 Amniotic Membrane Status: Intact Contraction Pattern: Absent Vitals/I&O/Wt Last Vital Signs Temp 96.6 F L 10/24/22 00:44 Pulse 101 H 10/24/22 00:44 Resp 16 10/23/22 22:04 BP 107/58 10/24/22 00:44 Physical Exam Narrative: Weight 138? lbs;? 5?1? BP 116 / 72 FH 32 cm FHTs normal A&P Assessment and plan (1) Supervision of other normal : 34 w 6 d (2) Urinary tract infection: improved with antibiotics plan discharge home today followup in one day in office Attestations Medical Necessity Statement*: patient at 34 w 5 d, treated for UTI Coding Level of Care Code Acute Code for Chg Fwd Diagnoses Supervision of other normal Z34.80 Urinary tract infection N39.0 Time Spent (min) 60
--- NOTE | 2022-11-12 16:54 | PM.OBGYDC ---
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 at 34 w 5 d, admitted with lower abdominal pain, found to have UTI Hospital Course Hospital Course patient's pain improved with antibiotics. Discharge Data Vitals Last Vital Signs Temp 96.6 F L 10/24/22 00:44 Pulse 101 H 10/24/22 00:44 Resp 16 10/23/22 22:04 BP 107/58 10/24/22 00:44 Discharge Plan Discharge Patient Disposition: Home Prescriptions: No Action Vitamins 1 tab PO DAILY citalopram 10 mg tablet 10 mg PO DAILY ondansetron 4 mg tablet,disintegrating 4 mg PO Q6H Qty: 30 2RF famotidine 20 mg tablet 20 mg PO BID Qty: 60 2RF bupropion HCl [Wellbutrin XL] 150 mg tablet extended release 24 hr 150 mg PO QAM Qty: 30 0RF metoclopramide HCl [Reglan] 10 mg tablet 10 mg PO Q8H PRN (Reason: nausea and vomiting) Qty: 30 2RF nitrofurantoin monohyd/m-cryst [Macrobid] 100 mg capsule 100 mg PO DAILY Qty: 30 3RF tramadol 50 mg tablet 50 mg PO BID PRN (Reason: pain) Qty: 30 0RF Discharge Orders: Discharge Order (Routine); Ordered 10/24/22 Ordered By: Shelly Pritchett Diet: Usual diet Activity: Resume usual activity Patient Instructions: Phenazopyridine (By mouth) (Pyridium, Pyridiate, Azo Standard), Acetaminophen (By mouth), Tramadol (By mouth), Ceftriaxone (By injection) (Rocephin, Novaplus cefTRIAXone,..., Nitrofurantoin Combination (By mouth) (Macrobid), Urinary Tract Infection in Women (DC), Urinary Tract Infection in (DC), OB Undelivered Discharge Activity Restrictions/Additional Instructions: Please increase your water intake. Take all medications prescribed to you, as directed. Keep all scheduled appointments with your doctor. Please crab picker medications at [facility] in [facility], that were sent in on 10/23/22. If you have trouble getting them from the pharmacy, call the OB department at [phone]. It is very important that you get started on your antibiotics and take the complete course of them. You may also take tylenol for pain as directed on the label. Discharge Date/Time: 10/24/22 00:53 Discharge Attestations INDUSTRIAL INSULATOR Time Spent in Discharge Care*: less than 30 min Coding Level of Care Code Acute Code for Chg Fwd Diagnoses Supervision of other normal Z34.80 Urinary tract infection N39.0 Time Spent (min) 25
== END 2022-10-24 00:53 | disposition home or self-care (01) ==
LOC: OPOB 21:51 → OBGYN 21:52
PROVIDERS: Visit Provider Obstetrics & Gynecology
DX: O26.899 Other specified pregnancy related conditions, unspecified trimester (principal); R10.9 Unspecified abdominal pain; R10.2 Pelvic and perineal pain; Z3A.00 Weeks of gestation of pregnancy not specified
CPT/HCPCS: 59025; 99211; J0696; J7030

== ENCOUNTER 2022-10-25 05:18 | Outpatient (CLI) | payer MEDICAID, SELFPAY ==
[2022-10-25] VITALS (15 sets, daily range): BP systolic 109–130; BP diastolic 63–85; PULSE 76–133; RESP 17–18; TEMP 36.2; O2SAT 92; BMI 28.1
[2022-10-25 05:55] LABS: Actim Prom Positive
[2022-10-25] MEDS: betamethasone susp 6 mg/mL 5 mL 12 MG IM (06:45)
[2022-10-25] MEDS: ampicillin 2,000 MG in sodium chloride 0.9% (plus) 50 ML 100 MG IV (06:58)
[2022-10-25] MEDS: dextrose 5%-lactated ringers 1,000 ML 125 ML IV (06:58)
[2022-10-25] MEDS: terbutaline 1 mg/mL INJ 0.25 MG SUBCUT (07:29)
[2022-10-25 07:44] LABS: Rubella IgG 115.7 IU/mL (0.0-10.0)
[2022-10-25 07:45] LABS: Hepatitis B Surface Antigen Non-Reactive (Nonreactive)
[2022-10-25 07:51] LABS: Rapid Plasma Reagin Syphilis Nonreactive (Nonreactive)
[2022-10-25 07:54] LABS: HIV 1 & 2 Antigen Non-Reactive (Non-Reactiv)
[2022-10-25 07:55] LABS: HIV 1 & 2 Antibody Non-Reactive (Non-Reactiv)
[2022-10-25 08:03] LABS: Amphetamines Screen Urine Negative (Negative); Barbiturates Screen Urine Negative (Negative); Benzodiazepines Screen Urine Negative (Negative); Cocaine Screen Urine Negative (Negative); Opiate Screen Urine Negative (Negative); PCP Screen Urine Negative (Negative); THC Screen Urine Negative (Negative)
== END 2022-10-25 09:00 | disposition home or self-care (01) ==
LOC: OPOB 05:18 → OBGYN 11-01 08:06
PROVIDERS: Visit Provider Obstetrics & Gynecology
DX: O26.899 Other specified pregnancy related conditions, unspecified trimester (principal); R10.9 Unspecified abdominal pain; Z3A.00 Weeks of gestation of pregnancy not specified
CPT/HCPCS: 36415; 59025; 80306; 80503; 83986; 84112; 86592; 86762; 86850; 86870; 86900; 87340; 87491; 87591; 87806; 96372; 99211; J0290; J0702; J3105; J7121

== ENCOUNTER 2023-02-19 13:39 | Emergency (ER) | payer MEDICAID, SELFPAY ==
[2023-02-19 14:08] VITALS: BP 112/74; PULSE 101; RESP 18; TEMP 36.6; O2SAT 98; BMI 24.5
[2023-02-19 14:51] LABS: Basophils # 0.1 10^3/uL (0.0-0.1); Eosinophils # 0.1 10^3/uL (0.0-0.8); Eosinophils % 1.3 %; Hematocrit 46.3 % (36-47); Lymphocytes # 2.1 10^3/uL (0.8-4.8); Lymphocytes % 26.2 %; Mean Corpuscular HGB Conc 30.9 g/dL (30-55); Mean Corpuscular Hemoglobin 27.9 pg (27-33); Mean Corpuscular Volume 90.3 fl (85-98); Mean Platelet Volume 10.1 fL (7.4-10.4); Monocytes # 0.4 10^3/uL (0.2-0.9); Monocytes % 5.4 %; Neutrophils # 5.39 10^3/uL (1.8-7.7); Neutrophils % 65.9 %; Nucleated Red Blood Cells % 0 %; Platelet Count 316 10^3/cmm (157-399); Red Blood Count 5.13 10^6/uL (3.85-5.65); Red Cell Distribution Width 13.6 % (12.1-15.1); White Blood Count 8.18 10^3/uL (3.29-11.43)
[2023-02-19 15:10] LABS: HCG, Serum Qual Negative (Negative)
[2023-02-19 15:14] LABS: Alanine Aminotransferase 21 U/L (0-33); Albumin Level 4.7 g/dL (3.5-5.2); Anion Gap 13.9 (5-19); Aspartate Amino Transferase 17 U/L (0-32); Carbon Dioxide 27 mmol/L (22-29); Chloride 102 mmol/L (98-107); Globulin 3.2 g/dL (1.3-4.6); Glucose 106 mg/dL (65-115); Lipase 19 U/L (13-60); Potassium 3.9 mmol/L (3.5-5.1); Sodium 139 mmol/L (136-145); Total Protein 7.9 g/dL (6.6-8.7)
[2023-02-19 15:26] LABS: Blood Urea Nitrogen 14 mg/dL (6-20); Calcium 9.3 mg/dL (8.5-10.5); Glomerular Filtration Rate 122.8 mL/min (90-130); Osmolality Calculated 289 mOsm/kg (285-295); Total Bilirubin 0.3 mg/dL (0.15-1.2)
[2023-02-19 15:27] LABS: Alkaline Phosphatase 123 U/L (35-105)
--- NOTE | 2023-02-19 16:12 | ED_ITS ---
HPI - Abdominal Pain General: Chief Complaint: Abdominal Pain Stated Complaint: lower abd Time Seen by Provider: 02/19/23 15:01 Source: patient Mode of arrival: ambulatory History of Present Illness: 22-year-old female presents emergency room complaining of left lower quadrant abdominal pains. She states she had marked pain she has had some bleeding after wiping when she urinates. Patient tells me that 3 months ago she had a total hysterectomy there is no documentation in the chart however there is a documentation of an admission for hospital stay at 34 weeks gestation where she had a bladder infection. MD elicited complaint: abdominal pain Onset (ago): day(s) Location: LLQ Severity: mild Quality: cramping Exacerbating factors: nothing Relieving factors: nothing Associated Symptoms: Reports GI cramping; Denies anorexia, belching, bloating, change in bowel habits, change in stool character, chills, coffee ground emesis, constipation, diarrhea, dyspepsia, dysuria, excessive flatus, fever(s), heartburn, hematochezia, hematuria, hematemesis, fecal incontinence, loose stools, melena, nausea, poor appetite, syncope and vomiting Review of Systems Const: Denies: fever(s) or chills Card: Denies: syncope Resp: Denies: dyspnea GI: Reports: GI cramping; Denies: nausea, vomiting, hematemesis, coffee ground emesis, heartburn, di arrhea, constipation, bloating, belching, excessive flatus, fecal incontinence, change in bowel habits, change in stool character, hematochezia or melena : Denies: dysuria or hematuria Musc: Denies: neck pain or back pain Skin/Breast: Denies: rash PFSH ED PFSH: Medical History Bilateral ovarian cysts Hyperglycemia Psychiatric care Recurrent cystitis Seasonal allergies Surgical History History of tonsillectomy and adenoidectomy Family History Other Diabetes Hypertension Social History Smoking and tobacco/nicotine status: never used tobacco/nicotine Alcohol intake: never Substance/Drug Use: unknown Adopted: No Caregiver/support person: No Marital status: Single Physical Exam Const: GENERAL APPEARANCE: cooperative and comfortable ORIENTATION/CONSCIOUSNESS: Yes awake, Yes oriented to person, Yes oriented to place and Yes oriented to time HENMT: COMMON NORMALS: normocephalic, atraumatic and hearing grossly normal bilaterally HEAD & SCALP: normocephalic and atraumatic Resp: COMMON NORMALS: normal respiratory effort, No retractions, No use of accessory muscles and clear to auscultation bilaterally AUSCULTATION: clear to auscultation bilaterally Cardio: COMMON NORMALS: regular rate, regular rhythm and No murmurs present (Cardio) RATE: regular rate RHYTHM: regular rhythm GI: COMMON NORMALS: Soft to palpation and No hepatosplenomegaly present AU SCULTATION: Yes normoactive bowel sounds PALPATION: Yes Soft to palpation, No Tenderness to palpation present (GI), No Guarding due to palpation present (GI) and Yes No hepatosplenomegaly present Extremity: COMMON NORMALS: normal to inspection, capillary refill normal, no clubbing, cyanosis or edema, no calf tenderness and no pedal edema Neuro: SENSORIUM/ORIENTATION: Yes oriented to person, Yes oriented to place and Yes oriented to time Skin: COMMON NORMALS: no rashes or lesions noted GENERAL SKIN EXAM: no rashes or lesions noted Course Vital Signs: Vital signs: Vital Signs Temperature 97.9 F 02/19/23 14:08 Pulse Rate 100 02/19/23 17:38 Respiratory Rate 18 02/19/23 17:38 Blood Pressure 109/82 02/19/23 17:38 Pulse Oximetry 97 02/19/23 17:38 Oxygen Delivery Me thod Room Air 02/19/23 17:38 MDM - Abdominal Pain Medical Decision Making Reviewed findings with the patient. She confirms she did actually have a hysterectomy after her delivery the hysterectomy was done at [facility] in [place] due to excessive bleeding. Discussed with the patient my best guess would be most likely she missed read the test that would seem unlikely to have 3 faulty test consecutively. Discussed with her that the test must be read precisely within the timeframe if they go past the instruction timeframe they o ften will turn positive regardless. Serum Qualitative beta-hCG is negative. Repeat abdominal exam does not show any acute abdomen signs. Discharge home use diclofenac as needed if persist follow-up with primary care. Labs reviewed with the patient as well. Medical Records I reviewed the patient's medical records. Lab Data I reviewed the patient's lab results. 02/19/23 14:44 02/19/23 14:44 Labs/Radiology: Laboratory Results WBC 8.18 10^3/uL (3.29-11.43) 02/19/23 14:44 RBC 5.13 10^6/uL (3.85-5.65) 02/19/23 14:44 Hgb 14.30 g/dL (11.27-16.99) 02/19/23 14:44 Hct 46.3 % (36-47) 02/19/23 14:44 MCV 90.3 fl (85-98) 02/19/23 14:44 MCH 27.9 pg (27-33) 02/19/23 14:44 MCHC 30.9 g/dL (30-55) 02/19/23 14:44 RDW 13.6 % (12.1-15.1) 02/19/23 14:44 Plt Count 316 10^3/cmm (157-399) 02/19/23 14:44 MPV 10.1 fL (7.4-10.4) 02/19/23 14:44 Neut % (Auto) 65.9 % 02/19/23 14:44 Lymph % (Auto) 26.2 % 02/19/23 14:44 Casey % (Auto) 5.4 % 02/19/23 14:44 Eos % (Auto) 1.3 % 02/19/23 14:44 Baso % (Auto) 1.0 % 02/19/23 14:44 Neut # (Auto) 5.39 10^3/uL (1.8-7.7) 02/19/23 14:44 Lymph # (Auto) 2.1 10^3/uL (0.8-4.8) 02/19/23 14:44 Casey # (Auto) 0.4 10^3/uL (0.2-0.9) 02/19/23 14:44 Eos # (Auto) 0.1 10^3/uL (0.0-0.8) 02/19/23 14:44 Baso # (Auto) 0.1 10^3/uL (0.0-0.1) 02/19/23 14:44 Nucleated RBC % (auto) 0 % 02/19/23 14:44 Nucleated RBCs # 0.0 /100WBC 02/19/23 14:44 Sodium 139 mmol/L (136-145) 02/19/23 14:44 Potassium 3.9 mmol/L (3.5-5.1) 02/19/23 14:44 Chloride 102 mmol/L (98-107) 02/19/23 14:44 Carbon Dioxide 27 mmol/L (22-29) 02/19/23 14:44 Anion Gap 13.9 (5-19) 02/19/23 14:44 BUN 14 mg/dL (6-20) 02/19/23 14:44 Creatinine 0.6 mg/dL (0.5-0.9) 02/19/23 14:44 GFR Calculation 122.8 mL/min (90-130) 02/19/23 14:44 Glucose 106 mg/dL (65-115) 02/19/23 14:44 Calculated Osmolality 289 mOsm/kg (285-295) 02/19/23 14:44 Calcium 9.3 mg/dL (8.5-10.5) 02/19/23 14:44 Total Bilirubin 0.3 mg/dL (0.15-1.2) 02/19/23 14:44 AST 17 U/L (0-32) 02/19/23 14:44 ALT 21 U/L (0-33) 02/19/23 14:44 Alkaline Phosphatase 123 U/L (35-105) H 02/19/23 14:44 Total Protein 7.9 g/dL (6.6-8.7) 02/19/23 14:44 Albumin 4.7 g/dL (3.5-5.2) 02/19/23 14:44 Globulin 3.2 g/dL (1.3-4.6) 02/19/23 14:44 Lipase 19 U/L (13-60) 02/19/23 14:44 HCG, Qual Negative (Negative) 02/19/23 14:44 Urine Color Yellow (Yellow) 02/19/23 17:43 Urine Appearance Sl hazy (CLEAR) A 02/19/23 17:43 Urine pH 5 (5-7) 02/19/23 17:43 Ur Specific [place] 1.025 (1.005-1.030) 02/19/23 17:43 Urine Protein Neg (Negative) 02/19/23 17:43 Urine Glucose (UA) Norm (Normal) 02/19/23 17:43 Urine Ketones 1+ (Negative) H 02/19/23 17:43 Urine Blood Neg (Negative) 02/19/23 17:43 Urine Nitrate Negative (Negative) 02/19/23 17:43 Urine Bilirubin Neg (Negative) 02/19/23 17:43 Urine Urobilinogen Norm mg/dL (Negative) 02/19/23 17:43 Ur Leukocyte Esterase Trace (Negative) H 02/19/23 17:43 Urine RBC 0-4 /hpf (0-2) H 02/19/23 17:43 Urine WBC 0-4 /hpf (0-5) H 02/19/23 17:43 Ur Squamous Epith Cells 5-10 /hpf (0-5) H 02/19/23 17:43 Amorphous Sediment Trace /hpf 02/19/23 17:43 Urine Bacteria Trace /hpf (NONE) 02/19/23 17:43 Urine Mucus 3+ /hpf 02/19/23 17:43 No radiology studies performed this visit Discharge Plan Discharge Patient Disposition: Home Clinical Impression: Abdominal pain Condition: Stable Prescriptions: New diclofenac sodium 75 mg tablet,delayed release (DR/EC) 75 mg PO Q12H PRN (Reason: pain) Qty: 20 0RF No Action fexofenadine [Allergy Relief (fexofenadine)] 180 mg tablet 180 mg PO DAILY Qty: 30 3RF fluticasone furoate 27.5 mcg/actuation spray,suspension 1 spray intranasal DAILY PRN (Reason: allergy symptoms) Qty: 6.6 2RF Rx Instructions: into each nostril prednisone 20 mg tablet 20 mg PO DAILY 5 Days Qty: 5 0RF Discharge Orders: Discharge ED (Routine); Ordered 02/19/23 Ordered By: Osvaldo Stacy Discharge Diet: Usual diet Discharge Activity: Increase activity as tolerated Patient Instructions: Abdominal Pain (ED), Opioid Safety, Pain Management Activity Restrictions/Additional Instructions: Thank you for choosing [facility] for your healthcare needs today. Please realize this is an emergency room and that we are providing you with a medical screening exam and this may not be complete and all inclusive of all the testing and or work up that you may need to determine your ailment or severity of your illness. It is very important that you follow up as instructed or that you return to the Emergency Department should you have concerns or if your condition changes or worsens in any way. Coding Level of Care Code ED Cotton Picker for Anabel Martin
[2023-02-19 16:22] VITALS: BP 108/73; PULSE 93; RESP 18; O2SAT 100
[2023-02-19 17:38] VITALS: BP 109/82; PULSE 100; RESP 18; O2SAT 97
[2023-02-19 18:03] LABS: Bilirubin Urine Neg (Negative); Blood Urine Neg (Negative); Glucose Urine UA Norm (Normal); Ketones Urine 1+ (Negative); Nitrate Urine Negative (Negative); Protein Urine Neg (Negative); Specific Gravity, Urine 1.025 (1.005-1.030); Urine Appearance SL Hazy (CLEAR); Urine Color Yellow (Yellow); Urobilinogen Urine Norm (Negative); pH Urine 5 (5-7)
[2023-02-19 18:04] LABS: Add Urine Microscopic? YES; Leukocyte Esterase Urine Trace (Negative)
[2023-02-19 18:09] LABS: Amorphous Sediment Urine TRACE /hpf; Bacteria Urine TRACE /hpf; Mucus Urine 3+ /hpf; RBC Urine 0-4 /hpf (0-2); WBC Urine 0-4 /hpf (0-5)
[2023-02-19 18:10] LABS: Add Urine Culture? No
== END 2023-02-19 18:41 | disposition home or self-care (01) ==
PROVIDERS: Emergency Medicine; Emergency Provider Family Medicine
DX: R10.32 Left lower quadrant pain (principal)
CPT/HCPCS: 36415; 80053; 81001; 83690; 84703; 85025; 99283

== ENCOUNTER → 2023-03-27 11:38 | Outpatient (BNVA) | payer OTHER, SELFPAY | PROVIDERS: Visit Provider Psychiatry & Neurology Neurology | DX: Z13.228 Encounter for screening for other metabolic disorders (principal) | CPT/HCPCS: 80061; 83036 ==

== ENCOUNTER → 2025-03-11 16:59 | Outpatient (BNVA) | payer MEDICAID, SELFPAY ==
[2023-04-10 16:06] VITALS: BP 102/62; BMI 23.2
== END ==
PROVIDERS: Visit Provider Emergency Medicine
DX: R39.9 Unspecified symptoms and signs involving the genitourinary system (principal)
CPT/HCPCS: 81000; 87086

== ENCOUNTER 2025-03-18 17:54 | Inpatient (IN) | payer SELFPAY ==
[2023-04-10 16:06] VITALS: BP 102/62; BMI 23.2
--- NOTE | 2025-03-18 18:00 | XRR_ITS ---
PROCEDURE INFORMATION: Exam: XR Chest Exam date and time: 03/18/2025 6:05 PM Age: 24 years old Clinical indication: Pain; Chest pressure; Additional info: Chest pain TECHNIQUE: Imaging protocol: Radiologic exam of the chest. Views: 1 view. COMPARISON: CR XR chest 2V* [id number] 06/24/2018 10:02 AM FINDINGS: Lungs: Unremarkable. No consolidation. Pleural spaces: Unremarkable. No pleural effusion. No pneumothorax. Heart/Mediastinum: Unremarkable. No cardiomegaly. Bones/joints: Unremarkable. XR/XR chest 1V portable [id number] IMPRESSION: No acute findings.
[2025-03-18 18:01] VITALS: BP 107/59; PULSE 114; RESP 25; TEMP 37.2; O2SAT 98; BMI 26.4
--- NOTE | 2025-03-18 18:01 | ED.C_ITS ---
HPI - Psych 2 General: Chief Complaint: Psychiatric Symptoms Stated Complaint: SI feels like chest is tight took Medswith Alcohol Time Seen by Provider: 03/18/25 18:00 History of Present Illness: 24-year-old female presents to the emerg ency room with suicidal ideation depression extremely tearful. She has been intermittently binge drinking she has not been taking her medications regularly. She has difficulty at the holidays because it is anniversary of her brother dying 3 years ago as well as she is very upset about the loss of her children. Patient has suicidal ideation with a plan to kill herself using a knife she has not done anything to advance lethality to this point Associated symptoms: Reports depression and suicidal ideation Related Data Home Medications ?Medication ?Instructions ?Recorded ?Confirmed valacyclovir 500 mg tablet 500 mg PO DAILY 03/11/25 Previous Rx's ?Medication ?Instructions ?Recorded ciprofloxacin HCl 500 mg tablet 500 mg PO BID 7 days # 14 tabs 03/11/25 fluconazole 150 mg tablet 150 mg PO Q3D 2 doses #2 tab s 03/11/25 Allergies Allergy/AdvReac Type Severity Reaction Status Date / Time red dye Allergy Intermediate ALGY-Hives Verified 03/11/25 16:59 Sulfa (Sulfonamide Allergy Unknown UNKNOWN Verified 03/11/25 16:59 Antibiotics) sulfamethoxazole (From Allergy ALGY-Hives Verified 03/11/25 16:59 Bactrim) trimethoprim (From Bactrim) Allergy ALGY-Hives Verified 03/11/25 16:59 Review of Systems 2 Const: Denies: fever(s) or chills Card: Denies: chest pain Resp: Denies: dyspnea GI: Denies: abdominal pain : Denies: dysuria, urinary frequency or urinary urgency Musc: Denies: neck pain or back pain Skin/Breast: Denies: rash Psych: Reports: anxiety, depression and suicidal ideation PFSH ED 2 PFSH: Medical History Seasonal allergies Bilateral ovarian cysts Hyperglycemia Recurrent cystitis Surgical History History of tonsillectomy and adenoidectomy Family History Other Diabetes Hypertension Seizure disorder Social History Smoking and tobacco/nicotine status: never used tobacco/nicotine Quit status (tobacco/nicotine): has quit using Alcohol intake: never Substance/Drug Use: never Adopted: No Caregiver/support person: No Lives independently: Yes Household members: family Housing: Other Details: [place] Marital status: Single Number of children: 3 Number of grandchildren: 0 Highest education level completed: 11th Grade service: No Current occupational status: unemployed Pets and animals: Yes Pets & animals: dog(s) Leisure activites: music and other Leisure activities details: watch TV Sexually active: No Do you think of yourself as: Straight/Heterosexual Current gender identity: Female Krista/Pentecostalism: L[employer] Special krista needs: No Agree to transfusion: Yes Female Reproductive History: Para: 3 Physical Exam 2 Const: GENERAL APPEARANCE: cooperative ORIENTATION/CONSCIOUSNESS: Yes awake, Yes oriented to person, Yes oriented to place and Yes oriented to time HENMT: COMMON NORMALS: normocephalic, atraumatic and hearing grossly normal bilaterally HEAD & SCALP: normocephalic and atraumatic Resp: COMMON NORMALS: normal respiratory effort, No retractions, No use of accessory muscles and clear to auscultation bilaterally AUSCULTATION: clear to auscultation bilaterally Cardio: COMMON NORMALS: regular rate, regular rhythm and No murmurs present (Cardio) RATE: regular rate RHYTHM: regular rhythm GI: COMMON NORMALS: Soft to palpation and No hepatosplenomegaly present A USCULTATION: Yes normoactive bowel sounds PALPATION: Yes Soft to palpation, No Tenderness to palpation present (GI), No Guarding due to palpation present (GI) and Yes No hepatosplenomegaly present Extremity: COMMON NORMALS: normal to inspection, capillary refill normal, no clubbing, cyanosis or edema, no calf tenderness and no pedal edema Neuro: SENSORIUM/ORIENTATION: Yes oriented to person, Yes oriented to place and Yes oriented to time Psych: MOOD & AFFECT: Yes anxious and Yes tearful Skin: COMMON NORMALS: no rashes or lesions noted GENERAL SKIN EXAM: no rashes or lesions noted Course 2 Vital Signs: Vital signs: Vital Signs Temperature 98.9 F 03/18/25 18:01 Pulse Rate 114 H 03/18/25 18:01 Respiratory Rate 25 H 03/18/25 18:01 Blood Pressure 107/59 03/18/25 18:01 Pulse Oximetry 98 03/18/25 18:01 Oxygen Delivery Me thod Room Air 03/18/25 18:01 MDM - Psych Medical Decision Making Medical decision making Social determinants: Poor social support, patient feels isolated has difficult time getting her medications I reviewed the patient's medical record. I reviewed the patient's current home meds Alternate historians: None Differential diagnosis depression anxiety suicidal ideation Lab Review: No acute findings Imaging: Chest x-ray unremarkable no acute infiltrates or effusions Assessment of risk: Level of risk: High Hospitalization considerations: Admit on 96-hour hold for suicidal ideation Reexamination: Stable, still extremely anxious Assessment and plan: Discussed with Dr. Hein. Will admit on a 96-hour hold for suicidal ideation. Medical Records I reviewed the patient's medical records. Lab Data I reviewed the patient's lab results. 03/18/25 18:23 03/18/25 18:23 Radiology Impressions Chest X-Ray 03/18/25 18:00 IMPRESSION: No acute findings. Laboratory Results WBC 6.12 10^3/uL (3.29-11.43) 03/18/25 18:23 RBC 4.57 10^6/uL (3.85-5.65) 03/18/25 18:23 Hgb 14.60 g/dL (11.27-16.99) 03/18/25 18:23 Hct 43.3 % (36-47) 03/18/25 18:23 MCV 94.7 fl (85-98) 03/18/25 18:23 MCH 31.9 pg (27-33) 03/18/25 18:23 MCHC 33.7 g/dL (30-55) 03/18/25 18:23 RDW 13.2 % (12.1-15.1) 03/18/25 18:23 Plt Count 227 10^3/cmm (157-399) 03/18/25 18:23 MPV 10.3 fL (7.4-10.4) 03/18/25 18:23 Neut % (Auto) 55.0 % 03/18/25 18:23 Lymph % (Auto) 35.8 % 03/18/25 18:23 Tillman % (Auto) 7.2 % 03/18/25 18:23 Eos % (Auto) 1.0 % 03/18/25 18:23 Baso % (Auto) 0.7 % 03/18/25 18:23 Neut # (Auto) 3.37 10^3/uL (1.8-7.7) 03/18/25 18:23 Lymph # (Auto) 2.2 10^3/uL (0.8-4.8) 03/18/25 18:23 Tillman # (Auto) 0.4 10^3/uL (0.2-0.9) 03/18/25 18:23 Eos # (Auto) 0.1 10^3/uL (0.0-0.8) 03/18/25 18:23 Baso # (Auto) 0.0 10^3/uL (0.0-0.1) 03/18/25 18:23 Nucleated RBC % (auto) 0 % 03/18/25 18:23 Nucleated RBCs # 0.0 /100WBC 03/18/25 18:23 Sodium 139 mmol/L (136-145) 03/18/25 18:23 Potassium 3.4 mmol/L (3.5-5.1) L 03/18/25 18:23 Chloride 105 mmol/L (98-107) 03/18/25 18:23 Carbon Dioxide 16 mmol/L (22-29) L 03/18/25 18:23 Anion Gap 21.4 (5-19) H 03/18/25 18:23 BUN 10 mg/dL (6-20) 03/18/25 18:23 Creatinine 0.6 mg/dL (0.5-0.9) 03/18/25 18:23 GFR Calculation 120.8 mL/min (90-130) 03/18/25 18:23 Glucose 103 mg/dL (65-115) 03/18/25 18:23 Calculated Osmolality 287 mOsm/kg (285-295) 03/18/25 18:23 Calcium 9.1 mg/dL (8.5-10.5) 03/18/25 18:23 Total Bilirubin 0.3 mg/dL (0.15-1.2) 03/18/25 18:23 AST 16 U/L (0-32) 03/18/25 18:23 ALT 13 U/L (0-33) 03/18/25 18:23 Alkaline Phosphatase 90 U/L (35-105) 03/18/25 18:23 Total Protein 7.9 g/dL (6.6-8.7) 03/18/25 18:23 Albumin 4.5 g/dL (3.5-5.2) 03/18/25 18: Globulin 3.4 g/dL (1.3-4.6) 03/18/25 18:23 HCG, Qual Negative (Negative) 03/18/25 18:23 Urine Color Yellow (Yellow) 03/18/25 18:23 Urine Appearance Clear (CLEAR) 03/18/25 18: Urine pH 5.0 (5-7) 03/18/25 18: Ur Specific [place] 1.010 (1.005-1.030) 03/18/25 18:23 Urine Protein Negative (Negative) 03/18/25 18:23 Urine Glucose (UA) Negative (Normal) 03/18/25 18:23 Urine Ketones Trace (Negative) 03/18/25 18:23 Urine Blood Negative (Negative) 03/18/25 18:23 Urine Nitrate Negative (Negative) 03/18/25 18:23 Urine Bilirubin Negative (Negative) 03/18/25 18: Urine Urobilinogen 0.2 mg/dL (Negative) 03/18/25 18:23 Ur Leukocyte Esterase Negative (Negative) 03/18/25 18:23 Urine RBC 0-2 /hpf (0-2) 03/18/25 18:23 Urine WBC 0-5 /hpf (0-5) 03/18/25 18:23 Ur Squamous Epith Cells 6-10 /hpf (0-5) 03/18/25 18:23 Amorphous Sediment Not Reportable 03/18/25 18:23 Urine Bacteria 1+ /hpf (NONE) H 03/18/25 18:23 Hyaline Casts 2.05 /lpf 03/18/25 18:23 Salicylates < 0.3 mg/dL (3-10) L 03/18/25 18:23 Urine Opiates Screen Negative ng/mL (Negative) 03/18/25 18: Acetaminophen < 5.0 ug/mL (10-30) L 03/18/25 18:23 Ur Barbiturates Screen Negative ng/mL (Negative) 03/18/25 18:23 Ur Phencyclidine Scrn Negative ng/mL (Negative) 03/18/25 18:23 Ur Amphetamines Screen Negative ng/mL (Negative) 03/18/25 18:23 U Benzodiazepines Scrn Negative ng/mL (Negative) 03/18/25 18:23 Urine Cocaine Screen Negative ng/mL (Negative) 03/18/25 18:23 U Marijuana (THC) Screen Negative ng/mL (Negative) 03/18/25 18:23 Ethyl Alcohol 72 mg/dL (0-10) H 03/18/25 18:23 No radiology studies performed this visit EKG Data EKG 1: I personally reviewed and interpreted this EKG as follows: Interpretation: EKG 03/18/2025 [address] changes no acute ST elevation ventricular rate at 110 WV interval 136 QTc 366 Discharge Plan Discharge Patient Disposition: Admitted As Inpatient Admit Provider: Bobby Chin Clinical Impression: Suicidal ideation Condition: Stable Coding Level of Care Code ED Progressive Care Nurse for Anabel Martin
--- OUTSIDE RECORDS SUMMARY | 2025-03-18 18:05 | XMS_ITS | Patient Health Record ---
Author Organization [facility] Address [address] [place] [address] Care Team Providers Care Insurance Claims Clerk Name Role Phone Lianna Wright MD Primary Care Provider U kirstiewingAfia Burton Unavailable [phone] Allergies Allergen (clinical drug ingredient) Drug/Non Drug Allergy documented on EMR Reaction Allergy Type Onset Date Status sulfamethoxazole / trimethoprim Bactrim Unknown Drug Allergy Active Reason For Referral No Information Medications Medication SIG (Take, Route, Frequency, Duration) Notes Start Date End Date Status Clotrimazole 1 % Cream 1 application at bedtime Vaginal Once a day; Duration: 7 day(s) Active Ondansetron HCl 4 MG Tablet 1 tablet Ora lly BID; Duration: 30 day(s) Active Social History Tobacco Use: Social History Observation Description Date Details (start date - stop date) Former Smoker NA - NA Social History Drugs/Alcohol: Social Info Question Answer Notes Alcohol Screen (Audit-C) Did you have a drink containing alcohol in the past year? No Points 0 Interpretation Negative Drugs Have you used drugs other than those for medical reasons in the past 12 months? No Tobacco Use: Social Info Question Answer Notes xTobacco Use/Smoking Are you a former smoker How long has it been since you last smoked? 1-3 months Additional Details Category Social Info Options Details Drugs/Alcohol: Do you smoke marijuana? De nies Do you drink alcohol? prior to p regnancy Section Notes: prior 3cig/day x 6months, qu it 11/2019, prior etoh, none in , denies drugs, lives with FOB, safe, denies h/o abuse, prior 3cig/day x 6months, qu it 11/2019, prior etoh, none in , denies drugs, lives with FOB, safe, denies h/o abuse, Plan Of Treatment No Information Insurance Providers Payer Name Payer Address Payer Phone Subscriber Number Group Number Insured Name Patient Relationship to Insured Coverage Start Date Coverage End Date [place] Medicaid [address] [place] [address] [id number] VITALY MCKEON Self - patient is the insured Medical (General) History Surgical History Surgery Date(Month/Year) tonsillectomy
--- OUTSIDE RECORDS SUMMARY | 2025-03-18 18:05 | XMS_ITS | Clinical Summary ---
Author Organization [facility] Address [address] [place] [address] Phone Care Team Providers Care Freight Loader Name Role Phone Celio Sarah DO Primary Care Provider [phone] Allergies Active Allergy Reactions Criticality Noted Date Comments Sulfa (Sulfonamide Antibiotics) Hives High 08/20 Sulfamethoxazole-Trimethoprim Hives High 2010 Trimethoprim Hives High 09/16/2021 Medications ondansetron (ZOFRAN ODT) 4 mg Tablet, Rapid Dissolve Take 1 Tablet (4 mg) by mouth every 8 hours as needed for Nausea/Emesis. Dissolve tablet on top of tongue, then swallow with saliva. 20 Tablet 4 Active Additional Information Patient not taking.Reported on 02/02/2025 valACYclovir (VALTREX) 500 mg tabletIndication s:HSV-2 seropositive Take 1 Tablet (500 mg) by mouth daily. 30 Tablet 11 5 Active citalopram (CeleXA) 20 mg tabletIndication s:JOSIAH (generalized anxiety disorder) Take 1 Tablet (20 mg) by mouth daily at bedtime. For anxiety. 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 Exotropia 01/27/2014 Intellectual disability 08/14/2013 OCD (obsessive compulsive disorder) 07/12/2009 Autism spectrum disorder - mild, with ID [id number] Resolved Problems Problem Noted Date Diagnosed Date Resolved Date premature rupture of membranes in third trimester 10/25/2022 02/02/2025 S/P emergency hysterectomy 10/25/2022 02/02/2025 Placental abruption in third trimester 10/25/2022 02/02/2025 35 weeks gestation of 09/09/2022 02/02/2025 History of delivery , currently 08/07/2022 02/02/2025 Supervision of normal 08/07/2022 10/25/2022 Insomnia secondary to situational depression 10/25/2022 Situational depression 08/07/202210/25 Breech presentation 10/19/2021 10/26/19 Supervision of high risk pre gnancy in third trimester, labor 08/28/2021 10/25/2022 labor in third trime ster without delivery 08/04/2021 10/25/2022 Right flank pain 05/20/2021 10/25/2022 39 weeks gestation of 05/20/2021 09/09/2022 Chest wall pain 10/22/2014 06/03/2015 Overview (08/17/2020): Reproducible bilateral lower chest wall, identical to her complaint Nausea/vomiting in 10/22/2014 10/19/2021 Headache 10/21/2014 06/03/2015 Headache, acute 10/19/2014 06/03/2015 Altered mental state 10/19/2014 016 Flank pain 09/01/2014 06/03/2015 Abdominal pain 09/01/2014 06/03/2015 Left sided abdominal pain of unknown cause 08/30/2014 06/03/2015 Dysuria 08/30/2014 10/22/2014 GERD (gastroesophageal reflux disease) 07/31/2014 10/25/2022 Acne vulgaris 01/27/2014 10/19/2021 Delayed immunizations 11/11/20132021 Constipation 10/22/2013 06/03/2015 Attention deficit hyperactiv ity disorder (ADHD) 02/25/2008 02/03/2009 Overview (08/17/2020): Updating IMO/ICD9 Code and Description Altered mental status 02/25/20082008 Hyperglycemia 02/25/2008 10/22/2013 UTI (urinary tract infection) 02/25/2008 10/22/2013 Overview (08/17/2020): Updating IMO/ICD9 Code and Description Mental retardation 02/20/2008 4 History of tonsillectomy and adenoidectomy 10/25/2022 delivery delivered 10/25/2022 Encounters Date Type Department Care Team Description 02/27/2025 Refill [facility] [place] [address] [place] [address] Philly Barnes FNP 02/23/2025 External Device Data [facility] ABSTRACTION Provider, Abstract 02/02/2025 2:10 PM CDT Office Visit [facility] [address] [place] [address] Philly Barnes FNP JOSIAH (generalized anxiety disorder) (Primary Dx); Intellectual disability; Autism spectrum disorder - mild, with ID; BRPF1 mutation 01/19/2025 External Device Data ST[facility] ABSTRACTION Provider, Abstract 01/05/2025 External Device Data [facility]STRACTION Provider, Abstract from Last 3 Months Immunizations Immunization Administration Dates Next Due (ADACEL/BOOSTRIX)(10 YR UP) TDAP VACCINE, 0.5ML, IM 08/11/2021,12/01/2013 (GARDASIL)(9-45 YRS) HUMAN PAPILLOMAVIRUS VACCINE, TYPES 6, 11, 16, 18, QUADRIVALENT (4VHPV), 3 DOSE, IM 12/01/2013 (INFANRIX)(6 WKS-6 YRS) DIPT HERIA, TETANUS TOXOIDS, AND ACCELLULAR PERTUSSIS VACCINE (DTAP), 0.5 ML IM 12/26/2004,12/09/2002,05/27/2002,04/03,01/17/1999 (IPOL)(6 WKS AND UP) POLIOVI RIZWANA VACCINE, INACTIVATED (IPV), 3 DOSE, SUBCUT OR IM 12/26/2004,08/06/2002,04/03/1999,01/17 (M-M-R II/PRIORIX)(12 MO UP) MEASLES, MUMPS AND RUBELLA VIRUS VACCINE, 0.5 ML IM/SUBCUT 12/26/2004,05/27/2002 (VARIVAX)(12 MOS UP)VARICELL A VIRUS VACCINE (PF) 0.5 ML, SUB CUT 08/06/2002 HIB, Unspecified Formulation 12/09/2002, 05/27/2002,04/03/1999,01/17 HPV Vaccine 3 Dose IM VFC 12/01/2013 Hepatitis B Vaccine 12/09/2002,08/24/2002,2002 INFLUENZA VACCINE QUADRIVALE NT 6 MOS UP IM 06/11/2019 Tdap Vaccine > 7 Yo IM VFC 12/01/2013 Family History Medical History Relation Name Comments Diabetes Brother 1 Seizures Brother 2 Diabetes Brother 3 Diabetes Father Seizures Father Diabetes Mother Seizures Mother Healthy Son Relation Name Status Comments Brother 1 Alive Brother 2 Brother 3 Alive Father Alive Mother Alive Son Alive Social History Tobacco Use Types Packs/Day Years Used Date Smoking Tobacco: Former Cigarettes Smokeless Tobacco: Former Tobacco Cessation:Counseling Given: Not Answered Alcohol Use Standard Drinks/Week Comments No 0 (1 standard drink = 0.6 oz pur e alcohol) Feeling Safe Answer Date Recorded Within the last year, have y ou been afraid of your partner or ex-partner? No 07/09/2019 Within the last year, have y ou been humiliated or emotionally abused in other ways by your partner or ex-partner? No Within the last year, have y ou been kicked, hit, slapped, or otherwise physically hurt by your partner or ex-partner? No 07/09/2019 Within the last year, have y ou been raped or forced to have any kind of sexual activity by your partner or ex-partner? No 07/09/2019 Feeling Safe Answer Date Recorded Are you in a relationship wi th someone who hurts you emotionally and/or physically? 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 Gender Identity Not on file Sexual Orientation Not on file Last Filed Vital Signs Vital Sign Reading Time Taken Comments Blood Pressure 102/70 02/02/2025 2:03 PM CDT Pulse 89 02/02/2025 2:03 PM CDT Temperature 36.7 C (98 F) 02/02/2025 2:03 PM CDT Respiratory Rate 19 02/02/2025 2:03 PM CDT Oxygen Saturation 99% 02/02/2025 2:03 PM CDT Inhaled Oxygen Concentration - - Weight 63.9 kg (140 lb 12.8 oz) 02/02/2025 2:03 PM CDT Height 154.9 cm (5' 1 ) 02/02/2025 2:03 PM CDT Body Mass Index 26.6 02/02/2025 2:03 PM CDT Plan of Treatment Health Maintenance Due Date Last Done Comments HEPATITIS B VACCINES (3 of 3 - 3-dose series) 02/03/2003 12/09/2002, 12/09/2002, 08/24/2002, Additional history exists HPV VACCINES (2 - 3-dose series) 12/29/2013 12/02/19 14, 12/01/2013 Preventative Visit-Managed Medicaid 2017 12/01/2013 INFLUENZA VACCINE (#1) 2024 06/11/2019 DTAP/TDAP/TD VACCINES (9 - T d or Tdap) 08/12/2031 08/11/2021, 12/01/2013, 12/01/2013, Additional history exists CHLAMYDIA SCREENING (ANNUAL) 11-24 YEARS Discontinued 12/30/2023, 07/15/2023, 03/19/2023, Additional history exists Procedures Procedure Name Priority Date/Time Associated Diagnosis Comments GC/CHLAMYDIA, UROGENITAL Stat 12/30/2023 4:30 PM CDT from Last 3 Months or Most Recently Relevant to Health Maintenance Results * GC/CHLAMYDIA, UROGENITAL (12/30/2023 4:30 PM CDT) Pathologist [facility] CHLAMYDIA DNA AMPLIFICATION NOT DETECTED Not Detected 12/31/2023 7:48 PM CDT [facility] GC DNA AMPLIFICATION NOT DETECTED Not Detected 12/31/2023 7:48 PM CDT [facility] [employer] [facility] Genital SPECIMEN FROM VAGINA / Unknown Collection / Unknown 12/30/2023 4:30 PM CDT 12/30/2023 4:32 PM CDT Narrative [facility] - 12/31/2023 7:48 PM CDT Results should not be used for the evaluation of suspected sexual abuse or for other medico-legal indications. The only legally accepted results are from culture. Results cannot be used to assess therapeutic success or failure since nucleic acids may persist following antimicrobial therapy. Stanley Mendez DO MICROBIOLOGY - GENERAL ORDERABLES Final Result [facility] CLIA # [id number] [address] [address] from Last 3 Months or Most Recently Relevant to Health Maintenance Insurance [place] * Guarantor: VITALY ELLISON Account Type Relation to Patient Date of Phone Billing Address Personal/Family [address] [place] [address] [employer] Medicaid Advance Directives For more information, please contact: [phone] * Full Code (Latest Code Status on File) Date Activated Date Inactivated Comments 07/10/2022 11:54 PM 07/11/2022 12:56 AM * Full Code Date Activated Date Inactivated Comments 10/20/2021 8:00 AM 10/22/2021 8:24 PM * Full Code Date Activated Date Inactivated Comments 10/19/2021 7:05 AM 10/19/2021 2:10 PM * Full Code Date Activated Date Inactivated Comments 08/09/2021 2:18 AM 08/09/2021 6:53 AM * Full Code Date Activated Date Inactivated Comments 08/04/2021 9:46 PM 08/05/2021 8:47 PM Care Teams Freight Loader Relationship Specialty Start Date End Date Celio Sarah DO [address] [place] [address] PCP - General Family Practice 08/07/22
--- NOTE | 2025-03-18 18:06 | ECG_ITS ---
[facility]-TEX Test Date: 2025-03-18 Pat Name: Keith Ellison Department: Room: 154 Gender: Female Registered Sales Assistant: : 2000 Requested By: Osvaldo Lerner Order Number: [id number] Bonita MD: Adryan Contreras M.D. Measurements Intervals [place] Rate: 110 P: 53 CT: 136 QRS: 28 QRSD: 83 T: -20 QT: 301 QTc: 408 Interpretive Statements SINUS TACHYCARD[address] ST DEVIATION AND T-WAVE ABNORMALITY, CONSIDER ANTERIOR ISCHEMIA [-0.1+ mV T-WAVE IN V3/V4] No previous ECG available for comparison Electronically Signed On 03-20-2025 16:53:49 DIRECTOR OF PATIENT CARE by Adryan Contreras M.D. [id number]
--- NOTE | 2025-03-18 18:21 | PC.NURSE ---
pt's mother . approved by pt to speak with
[2025-03-18 18:33] LABS: Hematocrit 43.3 % (36-47); Hemoglobin 14.60 g/dL (11.27-16.99); Mean Corpuscular HGB Conc 33.7 g/dL (30-55); Mean Corpuscular Hemoglobin 31.9 pg (27-33); Mean Corpuscular Volume 94.7 fl (85-98); Nucleated Red Blood Cells % 0 %; Platelet Count 227 10^3/cmm (157-399); Red Blood Count 4.57 10^6/uL (3.85-5.65); White Blood Count 6.12 10^3/uL (3.29-11.43)
[2025-03-18 18:38] LABS: Glucose Urine UA Negative (Normal); Nitrate Urine Negative (Negative); Specific Gravity, Urine 1.010 (1.005-1.030)
[2025-03-18 18:42] LABS: Add Urine Microscopic? YES
[2025-03-18 18:45] LABS: PCP Screen Urine Negative (Negative)
--- NOTE | 2025-03-18 18:50 | PC.NURSE ---
96 Hour Involuntary Hold Patient Rights have been reviewed with the patient and a copy of the same has been provided to her. Stripping And Booking Machine Operator Christina Coffman was present at bedside during the presentation of Rights.
[2025-03-18 19:10] LABS: UA Slide Review UA Slide Review Perf
[2025-03-18 19:11] LABS: HCG, Serum Qual Negative (Negative)
[2025-03-18 19:25] LABS: Alanine Aminotransferase 13 U/L (0-33); Albumin Level 4.5 g/dL (3.5-5.2); Alcohol Level 72 mg/dL (0-10); Alkaline Phosphatase 90 U/L (35-105); Anion Gap 21.4 (5-19); Aspartate Amino Transferase 16 U/L (0-32); Blood Urea Nitrogen 10 mg/dL (6-20); Calcium 9.1 mg/dL (8.5-10.5); Carbon Dioxide 16 mmol/L (22-29); Chloride 105 mmol/L (98-107); Globulin 3.4 g/dL (1.3-4.6); Glucose 103 mg/dL (65-115); Osmolality Calculated 287 mOsm/kg (285-295); Potassium 3.4 mmol/L (3.5-5.1); Sodium 139 mmol/L (136-145); Total Protein 7.9 g/dL (6.6-8.7)
[2025-03-18 19:29] LABS: Acetaminophen < 5.0 ug/mL (10-30); Salicylate < 0.3 mg/dL (3-10)
[2025-03-18 20:45] VITALS: BP 100/67; PULSE 99; RESP 18; TEMP 36.6; O2SAT 97
[2025-03-18 23:50] VITALS: BP 102/66; PULSE 76; RESP 18; TEMP 37.3; O2SAT 98
--- NOTE | 2025-03-19 06:16 | PC.NURSE ---
vs not completed per nursing due to finally sleeping after a very restless night resp 16
[2025-03-19 08:00] VITALS: BP 110/66; PULSE 77; RESP 16; TEMP 37.2; O2SAT 96
--- NOTE | 2025-03-19 10:34 | ECG_ITS ---
[place] [facility] Kitchen Test Date: 2025-03-18 Pat Name: Keith Ellison Department: Room: 150 Gender: Female Commercial Credit Lead: : 2000 Requested By: Osvaldo Lerner Order Number: [id number] Bonita MD: Adryan Contreras M.D. Measurements Intervals [place] Rate: 110 P: 53 AR: 136 QRS: 28 QRSD: 83 T: -20 QT: 301 QTc: 408 Interpretive Statements SINUS TACHYCARDIA MILD ST DEVIATION AND MODERATE T-WAVE ABNORMALITY, CONSIDER ISCHEMIA [-0.1+ mV T-WAVE IN V3/V4] No previous ECG available for comparison Electronically Signed On 03-20-2025 17:53:03 JET DYEING MACHINE OPERATOR by Adryan Contreras M.D. [id number]
[2025-03-19 12:00] VITALS: RESP 16
[2025-03-19 15:35] VITALS: BP 80/50; PULSE 66; RESP 16; TEMP 37.1; O2SAT 95
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
--- NOTE | 2025-03-19 16:40 | PC.NURSE ---
pt mom came to visiting pt. pt took clothing with that pt had with her when she left after visiting hours
[2025-03-19 20:00] VITALS: BP 90/64; PULSE 84; RESP 17; TEMP 37.2; O2SAT 94
[2025-03-20] VITALS: BP 104/70; PULSE 89; RESP 17; O2SAT 98
[2025-03-20 04:00] VITALS: BP 102/68; PULSE 70; RESP 16; TEMP 36.9; O2SAT 96
[2025-03-20 08:00] VITALS: BP 82/52; PULSE 122; RESP 15; TEMP 36.6; O2SAT 95
[2025-03-20] MEDS: multivitamin therapeutic Tablet 1 TAB PO (08:47)
--- NOTE | 2025-03-20 08:55 | P.NPUPN_ITS ---
Subjective NPU 2 Subjective: Patient presented today reporting that she is doing about the same. We discussed conversation with mom and issues of adherence and the risks, benefits and alternatives of restarting Celexa and she understood and agreed to proceed as is documented in this note. Mother expressed significant concerns that issues are related to stress related to time with bio father and stepmother and that this relationship might not be functional for patient. We discussed working with the social work team on Saturday in relation to understanding the logistics of her life outside the hospital. Mental Status Exam 2 MSE Comments: This is a well-nourished well-developed white female in hospital scrubs with limited grooming and eye contact. Appearance noteworthy for abnormal facies somewhat like subtle trisomy 21 versus alcohol versus Fragile X. Bright colored hair. No abnormal movements except for significant psychomotor retardation. Mostly cooperative with exam in moderate distress. Speech was decreased rate and volume with some mild speech impediment mood described as depressed, affect congruent. Thought process linear. Thought content: Patient endorsed suicidal ideation but denied homicidal ideation, there were no delusions reported or noted, she denied any auditory or visual hallucinations. Attention and concentration were mostly intact and memory appeared mostly reliable but none were formally tested. She was alert and oriented x 3. Insight, judgment and impulse control seemed limited versus impaired. Intellectual ability appeared limited versus impaired. Vitals/I&O/Wt Last Vital Signs Temp 98.4 F 03/20/25 04:00 Pulse 70 03/20/25 04:00 Resp 16 03/20/25 04:00 BP 102/68 03/20/25 04:00 Pulse Ox 96 03/20/25 04:00 O2 Del Method Room Air 03/20/25 04:00 Weight last 48 hrs Weight 63.503 kg Data NPU 03/18/25 18:23 03/18/25 18:23 A&P Assessment and plan 1. Suicidal ideation: 2. Major depressive disorder, recurrent severe without psychotic features: 3. Borderline intellectual functioning: Plan: This is a 24-year-old white female with a long history of mental health treatment but no inpatient stays here and limited interactions with psychiatry though she has had and continues to have a psychologist. She has not been on medication for a period that she cannot recall but was open at least to discussing initiation of antidepressant with a positive BAL on admission. 1. Consider Prozac versus Lexapro for depression. Will restart Celexa after consultation with mom. 2. Encourage individual, group and milieu therapy. 3. Continue every 15 minute checks for safety. 4. Encouraged sober living treatment after discharge at the highest level care to which she is willing to commit. 5. Obtain collateral information. Will be interesting to understand that there is some specific genetic abnormality given her appearance. Mom reported that there had been some genetic testing but it was unclear if she was really understanding what I was speaking of. But she said that there was a report that she would get to us. Additionally she was very concerned that some of the patient's issues are related to stress and drama related to the bio dad and stepmom and was querying if somehow we could prevent interactions with them. We discussed medication history and she reports a long history of medication trials and not a lot of success with SSRIs. However there was some success reportedly with the Celexa but issues with adherence. 6. Observe against the backdrop of the 96-hour hold. PDMP PDMP Reviewed: Not Reviewed Involuntary Hold Information 2 Hold Status: Legal Status: 96 Hour Hold Date/Time Hold Expires: 03/26/2025 @ 0001 Attestations NPU 2 Medical Necessity Statement*: Inpatient hospitalization is medically necessary and be clinically appropriate intervention at this time. Will monitor/initiate medications and changes as indicated. Likely length of stay 5 to 7 days. Coding Level of Care Code Acute Code for [facility] Fwd Diagnoses Suicidal ideation R45.851 Major depressive disorder, recurrent severe without psychotic features F33.2 Borderline intellectual functioning R41.83
[2025-03-20 12:00] VITALS: BP 90/62; PULSE 78; RESP 15; TEMP 37.1; O2SAT 95
[2025-03-20 16:00] VITALS: BP 99/50; PULSE 87; RESP 17; TEMP 37.1; O2SAT 97
[2025-03-20 20:00] VITALS: BP 101/71; PULSE 90; RESP 17; TEMP 37; O2SAT 97
--- NOTE | 2025-03-21 06:53 | PC.NURSE ---
vs not taken per nursing resp 16
[2025-03-21] MEDS: multivitamin therapeutic Tablet 1 TAB PO (08:30)
--- NOTE | 2025-03-21 08:58 | NUR.SHIFT ---
Pt states that she slept okay last night. She rates her anxiety 06/01 and depression 11/29. No reports of SI/HI or hallucinations. Pt was talking with this nurse and saying how she lives with her boyfriend and his [place]. She states that she is on disability and doesn't work and her boyfriend is also on disability. I asked her what she likes to do in her spare time and she states not much because she is just too depressed to really do anything. She is was very dizzy getting her up for meds this morning. We walked her to the dining room and had her eat some breakfast and drink fluids. After she sits for a bit and gets her wits to her we are going to have her shower and do some self care for the day.
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
[2025-03-21 14:00] VITALS: BP 88/61; PULSE 105; RESP 16; TEMP 37; O2SAT 97
[2025-03-21 20:27] VITALS: BP 100/67; PULSE 77; RESP 16; TEMP 37.4; O2SAT 96
[2025-03-22 06:00] VITALS: BP 88/58; PULSE 75; RESP 16; TEMP 37.3; O2SAT 96
[2025-03-22] MEDS: multivitamin therapeutic Tablet 1 TAB PO (08:28)
[2025-03-22 13:45] VITALS: BP 89/61; PULSE 70; RESP 16; TEMP 37; O2SAT 98
--- NOTE | 2025-03-22 14:17 | P.NPUPN_ITS ---
Subjective NPU 2 Subjective: Patient presented today wanting that things are going all right. She reports she was feeling a little better and this was also reported by staff that there were signs of improvement. She identified talking with her family and was working with the social work team on what will come next after discharge. She denied any side effects to the medication. Mental Status Exam 2 MSE Comments: This is a well-nourished well-developed white female in hospital scrubs with limited grooming and eye contact. Appearance noteworthy for abnormal facies somewhat like subtle trisomy 21 versus alcohol versus Fragile X. Bright colored hair. No abnormal movements except for improving psychomotor retardation. More cooperative with exam in mild moderate distress. Speech was decreased rate and volume with some mild speech impediment mood described as a little better, affect congruent. Thought process linear. Thought content: Patient endorsed suicidal ideation but denied homicidal ideation, there were no delusions reported or noted, she denied any auditory or visual hallucinations. Attention and concentration were mostly intact and memory appeared mostly reliable but none were formally tested. She was alert and oriented x 3. Insight, judgment and impulse control seemed limited versus impaired. Intellectual ability appeared limited versus impaired. Vitals/I&O/Wt Last Vital Signs Temp 98.6 F 03/22/25 13:45 Pulse 70 03/22/25 13:45 Resp 16 03/22/25 13:45 BP 89/61 03/22/25 13:45 Pulse Ox 98 03/22/25 13:45 O2 Del Method Room Air 03/22/25 13:45 Weight last 48 hrs Weight 65.828 kg Data NPU 03/18/25 18:23 03/18/25 18:23 A&P Assessment and plan 1. Suicidal ideation: 2. Major depressive disorder, recurrent severe without psychotic features: 3. Borderline intellectual functioning: Plan: This is a 24-year-old white female with a long history of mental health treatment but no inpatient stays here and limited interactions with psychiatry though she has had and continues to have a psychologist. She has not been on medication for a period that she cannot recall but was open at least to discussing initiation of antidepressant with a positive BAL on admission. 1. Consider Prozac versus Lexapro for depression. Restarted Celexa after consultation with mom. 2. Encourage individual, group and milieu therapy. 3. Continue every 15 minute checks for safety. 4. Encouraged sober living treatment after discharge at the highest level care to which she is willing to commit. 5. Obtain collateral information. Will be interesting to understand that there is some specific genetic abnormality given her appearance. Mom reported that there had been some genetic testing but it was unclear if she was really understanding what I was speaking of. But she said that there was a report that she would get to us. Additionally she was very concerned that some of the patient's issues are related to stress and drama related to the bio dad and stepmom and was querying if somehow we could prevent interactions with them. We discussed medication history and she reports a long history of medication trials and not a lot of success with SSRIs. However there was some success reportedly with the Celexa but issues with adherence. 6. Observe against the backdrop of the 96-hour hold. PDMP PDMP Reviewed: Not Reviewed Involuntary Hold Information 2 Hold Status: Legal Status: 96 Hour Hold Date/Time Hold Expires: 03/26/2025 @ 0001 Attestations NPU 2 Medical Necessity Statement*: Inpatient hospitalization is medically necessary and be clinically appropriate intervention at this time. Will monitor/initiate medications and changes as indicated. Likely length of stay 2-5 days. Coding Level of Care Code Acute Code for Chg Fwd Diagnoses Suicidal ideation R45.851 Major depressive disorder, recurrent severe without psychotic features F33.2 Borderline intellectual functioning R41.83
--- NOTE | 2025-03-22 18:07 | PC.NURSE ---
Pt states that her belly is hurting because she is barely able to have a bowel movement. Dr. Lepe gave a v/o for Miralax.
[2025-03-22 20:36] VITALS: BP 104/50; PULSE 80; RESP 17; TEMP 37.2; O2SAT 99
[2025-03-22] MEDS: polyethylene glycol 3350 Pkt 17 gm PO (20:55)
[2025-03-23 06:00] VITALS: BP 86/52; PULSE 66; RESP 16; TEMP 37.1; O2SAT 98
[2025-03-23] MEDS: polyethylene glycol 3350 Pkt 17 gm PO (09:44)
[2025-03-23] MEDS: multivitamin therapeutic Tablet 1 TAB PO (09:44)
[2025-03-23 14:00] VITALS: BP 103/66; PULSE 85; RESP 16; TEMP 37.1; O2SAT 97
--- NOTE | 2025-03-23 17:42 | P.NPUPN_ITS ---
Subjective NPU 2 Subjective: Patient presented today reporting that she is doing okay. She reports that she is feeling better overall and have been talking to her grandfather and her family about returning to her regular life. She reports that she is optimistic about the likelihood of discharge tomorrow and we agreed we would see how she was feeling overall before making the decision but she is leaning in that direction. She denied any side effects of the medication and we discussed the importance of her continuing adherence after discharge. Mental Status Exam 2 MSE Comments: This is a well-nourished well-developed white female in hospital scrubs with limited grooming and eye contact. Appearance noteworthy for abnormal facies somewhat like subtle trisomy 21 versus alcohol versus Fragile X. Bright colored hair. No abnormal movements except for improving psychomotor retardation. More cooperative with exam in mild moderate distress. Speech was slightly decreased but more normal rate and volume with some mild speech impediment. Mood described as a little better, affect congruent. Thought process linear. Thought content: Patient endorsed suicidal ideation but denied homicidal ideation, there were no delusions reported or noted, she denied any auditory or visual hallucinations. Attention and concentration were mostly intact and memory appeared mostly reliable but none were formally tested. She was alert and oriented x 3. Insight, judgment and impulse control seemed limited but improving. Intellectual ability appeared limited versus impaired. Vitals/I&O/Wt Last Vital Signs Temp 98.8 F 03/23/25 14:00 Pulse 85 03/23/25 14:00 Resp 16 03/23/25 14:00 BP 103/66 03/23/25 14:00 Pulse Ox 97 03/23/25 14:00 O2 Del Method Room Air 03/23/25 14:00 Data NPU 03/18/25 18:23 03/18/25 18:23 A&P Assessment and plan 1. Suicidal ideation: 2. Major depressive disorder, recurrent severe without psychotic features: 3. Borderline intellectual functioning: Plan: This is a 24-year-old white female with a long history of mental health treatment but no inpatient stays here and limited interactions with psychiatry though she has had and continues to have a psychologist. She has not been on medication for a period that she cannot recall but was open at least to discussing initiation of antidepressant with a positive BAL on admission. 1. Consider Prozac versus Lexapro for depression. Restarted Celexa after consultation with mom. 2. Encourage individual, group and milieu therapy. 3. Continue every 15 minute checks for safety. 4. Encouraged sober living treatment after discharge at the highest level care to which she is willing to commit. 5. Obtain collateral information. Will be interesting to understand that there is some specific genetic abnormality given her appearance. Mom reported that there had been some genetic testing but it was unclear if she was really understanding what I was speaking of. But she said that there was a report that she would get to us. Additionally she was very concerned that some of the patient's issues are related to stress and drama related to the bio dad and stepmom and was querying if somehow we could prevent interactions with them. We discussed medication history and she reports a long history of medication trials and not a lot of success with SSRIs. However there was some success reportedly with the Celexa but issues with adherence. 6. Observe against the backdrop of the 96-hour hold. PDMP PDMP Reviewed: Not Reviewed Involuntary Hold Information 2 Hold Status: Legal Status: 96 Hour Hold Date/Time Hold Expires: 03/26/2025 @ 0001 Attestations NPU 2 Medical Necessity Statement*: Inpatient hospitalization is medically necessary and be clinically appropriate intervention at this time. Will monitor/initiate medications and changes as indicated. Likely length of stay 1-3 days. Coding Level of Care Code Acute Code for Chg Fwd Diagnoses Suicidal ideation R45.851 Major depressive disorder, recurrent severe without psychotic features F33.2 Borderline intellectual functioning R41.83
[2025-03-23 20:23] VITALS: BP 112/69; PULSE 79; RESP 17; TEMP 37.4; O2SAT 94
[2025-03-24 06:00] VITALS: BP 96/61; PULSE 102; RESP 16; TEMP 37.2; O2SAT 97
[2025-03-24] MEDS: polyethylene glycol 3350 Pkt 17 gm PO (09:42)
[2025-03-24] MEDS: multivitamin therapeutic Tablet 1 TAB PO (09:42)
[2025-03-24 12:57] VITALS: BP 103/71; PULSE 97; RESP 18; TEMP 37.2; O2SAT 99
== END 2025-03-24 13:09 | disposition home or self-care (01) | DRG 885 ==
LOC: ER 18:36 → NP 19:17
PROVIDERS: Admitting Provider Psychiatry & Neurology Psychiatry; Emergency Provider Family Medicine; Visit Provider Psychiatry & Neurology Psychiatry
DX: F33.2 Major depressive disorder, recurrent severe without psychotic features (principal); R45.851 Suicidal ideations; R41.83 Borderline intellectual functioning; F10.129 Alcohol abuse with intoxication, unspecified; Y90.3 Blood alcohol level of 60-79 mg/100 ml
CPT/HCPCS: 36415; 71045; 80053; 80306; 80307; 81001; 84703; 85025; 93005; 97150; 97165; 99285; J9999